=== PATIENT | female | born 2000 | race Caucasian/White ===

== ENCOUNTER 2019-05-19 12:54 | Outpatient (CLI) | payer MEDICAID, SELFPAY ==
--- NOTE | 2019-05-19 13:05 | US_ITS ---
WS: [id number] ULTRASOUND-GUIDED RIGHT BREAST BIOPSY HISTORY: LUMP, 19-year-old female. COMPARISON: 04/19/2019 Procedure, risks and complications are explained to the patient. Medications are reviewed. Consent is obtained. The mass in the RIGHT breast is localized with ultrasound. Skin is cleansed with ChloraPrep and anest hetized with 1% buffered lidocaine. Small dermatome is made. Under sterile conditions mass is biopsie d with a 14-gauge Achieve needle. Multiple core biopsies are performed. Material placed in formalin a nd sent to pathology for review. No complications encountered. Breast tissue marker (Travtar ultrasound enhanced ribbon): None. Patient left the radiology suite with no complications. Patient is instructed to return to [facility] or [facility] with any concerns. 1. Uncomplicated core needle biopsy RIGHT breast mass at 9:00. US/[place] [id number] IMPRESSION: PATHOLOGY: Benign breast tissue with fibrocystic changes. Ductal hyperplasia an d ectasia with fibrosis. No malignancy or calcification. RECOMMENDATION: Consider surgical excision due to the size of the mass.
== END 2019-05-19 12:55 | disposition home or self-care (01) ==
PROVIDERS: Family Provider Nurse Practitioner Family; PCP Nurse Practitioner Family; Visit Provider Surgery
DX: N60.42 Mammary duct ectasia of left breast (principal); N60.32 Fibrosclerosis of left breast; N62 Hypertrophy of breast; N63.20 Unspecified lump in the left breast, unspecified quadrant
CPT/HCPCS: 19083; 88305; J2001

== ENCOUNTER 2019-06-12 13:02 | Day surgery (SDC) | payer MEDICAID, SELFPAY ==
[2019-06-09 13:42] VITALS: BMI 27.3
[2019-06-12] VITALS (10 sets, daily range): BP systolic 88–132; BP diastolic 59–85; PULSE 56–99; RESP 15–20; TEMP 36.1–36.9; O2SAT 96–100
[2019-06-12 13:25] LABS: OR HCG Qualitative Urine Negative (Negative)
[2019-06-12] MEDS: sodium chloride 0.9% 1,000 ML 30 ML IV (13:45)
--- NOTE | 2019-06-12 14:02 | P.ANES_ITS ---
Pre-Anesthetic Assessment Pre-Anesthetic Assessment: Height/Weight: Height 1.52 m Weight 63.503 kg Preop Diagnosis: Left breast mass Proposed Procedure: Operation Date: 06/12/19 14:40 Proposed Procedures p Excision of left breast mass N63.20(Not Applicable) - Rafy Mckay MD Familial anesthetic complications: No trouble with anesthesia Was Beta Chanel taken within 24 hours: N/A Last intake: Intake Last Liquid Date 06/11/19 Last Liquid Time 21:00 Last Solid Date 06/11/19 Last Solid Time 21:00 Social: Social History: Tobacco and No alcohol Packs per day: 0.5 ppd Exam: Pre-Anes Outpt Exam: alert, oriented x 3, clear to auscultation bilaterally and regular rate & rhythm Airway: Cervical ROM: WNL MP: 2 Dentition: Chipped Additional comments: 8 broken teeth, teeth growing inside Pulmonary: Pulmonary: Asthma Comments: allergies recently CV/HEM: CV/HEM: Angina (Stable) Comments: L sided chest pains since age 11, occurs with stress. Has stated she has passed out over 10 times in her life (just happens - her doctors says this is heart burn And bad diet) : : None reported Hepatic: Hepatic: None reported Comments: WAS TOLD SHE MIGHT HAVE SPLEEN CANCER DUE TO BLACK MASSES on a scan for her gallbladder. hasn'[t been worked up. will rescan in a year GI: Comments: diarrhea for 1 month, was told she had IBS. sees dr. blanton, wants to get a stool sample done. Endoscopy and colonscopy looked ok Metabolic: Metabolic: None reported Musc/skel: Musc/skel: None reported Neuropsych: Neuropsych: Seizure Comments: age 10 or 11 had 2 seizures - unknown etiology no antiseziure meds Anesthetic Plan: ASA status: II Anesthesia: General Meds/Allergies Current Medications: Current Medications Generic Name Dose Route Start Last Admin Trade Name Freq PRN Reason Stop Dose Admin Sodium Chloride 1,000 mls @ 30 ml s/hr 06/12/19 13:15 06/12/19 13:45 Sodium Chloride 0.9% IV 06/13/19 13:14 30 mls/hr .Q24H JORDI Administration PFSH Anesthesia PFSH: Medical History (Updated 06/09/19 @ 16:10 by Tess Custer, SHIRRING MACHINE OPERATOR AUTOMATIC) Diverticulitis (Acute) Surgical History Breast mass, left (Acute) Social History Smoking and tobacco status: current every day smoker cigarettes Packs smoked per day: 1 Quit status (tobacco): has tried quititng Second hand smoke exposure: Yes Alcohol intake: never Adopted: No Caregiver/support person: Yes Lives independently: Yes Household members: family Housing: House Marital status: Single Highest education level completed: High School Graduate service: No Current occupational status: employed Current occupation: PART-TIME [employer] Current occupational exposures/hazards: No Pets and animals: Yes History of recent travel: No Sexually active: Yes Current gender identity: Female Bisi/Protestant: None Special bisi needs: No Agree to transfusion: No Financial difficulty paying for basics: Decline to Answer Data Anesthesia Other Labs: Laboratory Results - last 48 hr 06/12/19 13:20 Urine HCG, Qual Negative Cardiac Studies: No Data to Display
--- NOTE | 2019-06-12 15:22 | PM.HPUD ---
H&P update H&P Update: DATE OF SURGERY/PROCEDURE: 06/12/19 DATE H&P PERFORMED: 06/05/19 H&P UPDATE INFORMATION: H&P completed within last 30 days and No changes to prior documentation PREOP DIAGNOSIS: Left breast mass PLANNED PROCEDURE: Operation Date: 06/12/19 14:40 Proposed Procedures p Excision of left breast mass 98079 N63.20(Not Applicable) - Rafy Mckay MD Full H&P Medications/Allergies: Current Medications: Current Medications Generic Name Dose Route Start Last Admin Trade Name Freq PRN Reason Stop Dose Admin Sodium Chloride 1,000 mls @ 30 ml s/hr 06/12/19 13:15 06/12/19 13:45 Sodium Chloride 0.9% IV 06/13/19 13:14 30 mls/hr .Q24H JORDI Administration Perinent History: Medical/Surgical History: Medical History (Updated 06/09/19 @ 16:10 by ALVIN Meléndez) Diverticulitis (Acute) Family History: Family History (Updated 05/31/19 @ 09:59 by Ninfa Jones RN) Other Cancer Diabetes Denies family history of Anesthesia complication Bleeding disorder Social History: Social History Smoking and tobacco status: current every day smoker cigarettes Packs smoked per day: 1 Quit status (tobacco): has tried quititng Second hand smoke exposure: Yes Alcohol intake: never Adopted: No Caregiver/support person: Yes Lives independently: Yes Household members: family Housing: House Marital status: Single Highest education level completed: High School Graduate service: No Current occupational status: employed Current occupation: PART-TIME [employer] Current occupational exposures/hazards: No Pets and animals: Yes History of recent travel: No Sexually active: Yes Current gender identity: Female Bisi/Christianity: None Special bisi needs: No Agree to transfusion: No Financial difficulty paying for basics: Decline to Answer
[2019-06-12] MEDS: lidocaine 2% INJ 20 mL INJECTION (15:54)
--- NOTE | 2019-06-12 16:26 | P.OP_ITS ---
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 Post-op Findings: Large breast mass 5 x 4 x 6 cm Procedure Done: Excision of left breast mass Specimens removed/disposition: Left breast mass oriented short sutures superior and long sutures marked lateral Surgeon: Rafy Mckay Material Handler Floorperson: Surgical thais Heredia Circulating nurse Denisse Anesthesia: General (LMA IMPORT/EXPORT FREIGHT FORWARDER Ariel) Estimated blood loss (mL): 10 Complications: No immediate complications Disposition: same day Brief History: This is a pleasant 19 years old female patient referred to my office with symptomatic left breast mass were an ultrasound guided biopsy was done and showed fibroadenoma, patient continued to have pain associated with the mass she elected to have it excised. Informed consent per chart Procedure: After identifying the patient holding area, the left breast was marked before the procedure by myself, patient was then taken to the operative suite, was placed in supine position, LMA was placed by anesthesia, prophylactic IV antibiotics were given per protocol, left arm was tucked to her body, prep and drape of the left pectoralis region was done under the usual sterile technique. Timeout was done verifying the patient's name/date of /planned procedure and destination after the procedure, all were in agreement. After palpation of the breast lump I did add circumferential incision coinciding with the skin areolar margin on top of the mass, I was able to dissect using the Bovie cautery and the mass was excised, the mass was deeply seated required quite of dissection to reach it, and it was enucleated no clinical suspicious of malignancy, following that appropriate orientation was done for the breast mass in the form of, short superior sutures, long lateral sutures, the mass was then passed to the circulating nurse for permanent. Thorough irrigation of the cavity was done and hemostasis, followed by deep dermal closure by 3-0 Vicryl, then 4-0 Monocryl for skin closure Lidocaine 2% was injected at the site of the incision, Mastisol and Steri-Strips were applied followed by dry dressing in the form of Telfa and Tegaderm. Followed by sports bra Patient tolerated the procedure well, count of instruments, needles and sponges were completed at the end of the procedure.And then patient was taken to the recovery area in stable condition. Was present for the whole entire procedure
[2019-06-12] MEDS: fentaNYL 50 mcg/mL INJ 2mL IVP ×2 (16:43→16:55)
--- NOTE | 2019-06-12 16:47 | SUR.PHASEI ---
6740 PATIENT TO PACU VIA GURNEY FROM OR. RR EVEN AND UNLABORED. ORAL AIRWAY IN PLACE, REMOVED ON ARRIVAL. SIMPLE MASK PLACED AT 8L. SPO2 100% DRESSING TO LEFT BREAST, CDI.
[2019-06-12] MEDS: ondansetron 2 mg/ML SDV 2 mL 4 MG IVP (17:03)
--- NOTE | 2019-06-12 17:06 | SUR.PHASEI ---
1700 SURGICAL BRA PLACED FOR COMFORT.
--- NOTE | 2019-06-12 17:10 | SUR.PHASEI ---
1708 ANESTHESIA AWARE OF LAST PAIN MEDICATION GIVEN. PATIENT TO OPS VIA GURNEY FROM PACU. RR EVEN AND UNLABORED. A/OX3. NO DISTRESS. PWD. DRESSING TO LEFT BREAST, CDI. SURGICAL BRA IN PLACE.
== END 2019-06-12 17:46 | disposition home or self-care (01) ==
PROVIDERS: Family Provider Nurse Practitioner Family; PCP Nurse Practitioner Family; Visit Provider Surgery
PROC: (CPT 19120; principal; 2019-06-12 14:30)
DX: N63.0 Unspecified lump in unspecified breast (principal); F17.210 Nicotine dependence, cigarettes, uncomplicated
CPT/HCPCS: 19120; 12345; 81025; 84703; 88305; 96365; J0131; J0690; J2001; J2405; J2704; J3010; J7030

== ENCOUNTER 2019-10-08 11:06 | Emergency (ER) | payer MEDICAID, SELFPAY ==
[2019-10-08 11:43] VITALS: BP 107/67; PULSE 66; RESP 18; TEMP 36.7; O2SAT 99; BMI 30.2
--- NOTE | 2019-10-08 12:11 | USR_ITS ---
NOTE: Report was unsigned for reason: Order was edited. Original Signature date and time was: 10/08/19 1341 PROCEDURE INFORMATION: Exam: US , Limited Exam date and time: 10/08/2019 12:47 PM Age: 19 years old Clinical indication: complicated by abdominal or pelvic pain; Right lower quadrant; Second trimester; Gestational age or lmp: 18 wks 4 days (by kong, per patient); ; Additional info: Abdominal pain TECHNIQUE: Imaging protocol: Real-time ultrasound of the maternal uterus with image documentation. Exam focused on the clinical indication. COM[place]ISON: [place] [id number] 01/14/2019 5:49 PM FINDINGS: Limited exam. Gestation: Intrauterine gestation. Heart rate: heart rate: 147 bpm. Presentation: Breech presentation at the current time. BIOMETRY: Estimated gestational age: Single live intrauterine gestation with the estimated gestational age of approximately 18 weeks 4 days by last menstrual period. Estimated due date: Estimated due date 03-06-20 MATERNAL: Right adnexa: Right ovary not visualized. Left adnexa: Left ovary not visualized. MTD US/US OB >= 14 weeks fetus [id number] IMPRESSION: 1. Single live intrauterine gestation with the estimated gestational age of approximately 18 weeks 4 days by last menstrual period. . 2. heart rate: 147 bpm.
--- NOTE | 2019-10-08 12:11 | USR_ITS ---
NOTE: Report was unsigned for reason: Order was edited. Original Signature date and time was: 10/08/19 1344 PROCEDURE INFORMATION: Exam: US Retroperitoneal Complete. Exam date and time: 10/08/2019 1:09 PM Age: 19 years old Clinical indication: Abdominal pain; Flank; Right; ; Additional info: Right flank pain TECHNIQUE: Imaging protocol: Real-time ultrasound of the retroperitoneum with image documentation. Complete exam. COMPARISON: US appendix [id number] 10/08/2019 12:48 PM FINDINGS: Right kidney: Right kidney 9.8 x 5.3 x 4.2 cm. Mild hydronephrosis. Left kidney: Left kidney 12.5 x 4.4 x 4.5 cm. Mild hydronephrosis. Aorta: Aorta unremarkable. Bladder: Bladder unremarkable. [facility] US/US renal BI with bladder IMPRESSION: Mild hydronephrosis on the right and likely and likely on the left. Please note the patient is .
--- NOTE | 2019-10-08 12:11 | USR_ITS ---
PROCEDURE INFORMATION: Exam: US Abdomen Limited, Appendix Exam date and time: 10/08/2019 12:53 PM Age: 19 years old Clinical indication: Abdominal pain; ; Additional info: Rlq pain - TECHNIQUE: Imaging protocol: Real-time ultrasound of the abdomen with image documentation. Examination was focused on the appendix. COMPARISON: No relevant prior studies available. FINDINGS: Appendix: Appendix not visualized. Intraperitoneal space: Minimal fluid in the right lower abdomen. US/US appendix [id number] IMPRESSION: 1. Appendix not visualized. 2. Minimal fluid in the right lower abdomen.
[2019-10-08 12:15] LABS: Basophils # 0.1 10^3/uL (0.0-0.1); Basophils % 0.5 %; Eosinophils # 0.1 10^3/uL (0.0-0.8); Hematocrit 35.7 % (37.0-47.0); Hemoglobin 11.7 g/dL (11.5-15.3); Lymphocytes # 2.2 10^3/uL (0.8-4.8); Mean Corpuscular HGB Conc 32.8 g/dL (30.0-36.0); Mean Corpuscular Volume 103.8 fL (81-99); Mean Platelet Volume 9.4 fL (7.4-10.4); Monocytes # 0.6 10^3/uL (0.2-0.9); Monocytes % 6.1 %; Neutrophils % 69.9 %; Nucleated Red Blood Cells % 0 %; Platelet Count 272 10^3/cmm (130-400); Red Blood Count 3.44 10^6/uL (4.1-5.3)
[2019-10-08 12:30] LABS: Bilirubin Urine Neg (NEGATIVE); Blood Urine Neg (Negative); Glucose Urine UA Norm (Normal); Ketones Urine Negative (Negative); Leukocyte Esterase Urine Negative (Negative); Nitrate Urine Negative (Negative); Protein Urine Neg (Negative); Sulfosalicylic Acid Urine Negative (Negative); Urine Appearance SL Hazy (CLEAR); Urine Color Yellow (Yellow); Urobilinogen Urine Norm (Negative); pH Urine 8 (5-7)
[2019-10-08 12:32] LABS: WBC Urine 0-4 /hpf (0-5)
[2019-10-08 12:33] LABS: Add Urine Culture? No; Amorphous Sediment Urine 2+; Bacteria Urine 1+; Mucus Urine 1+
[2019-10-08 12:35] LABS: Alanine Aminotransferase 14 U/L (0-33); Alkaline Phosphatase 68 IU/L (35-105); Anion Gap 14.7 (5-19); Aspartate Amino Transferase 14 U/L (0-32); Blood Urea Nitrogen 3 mg/dL (6-20); Calcium 8.6 mg/dL (8.5-10.5); Carbon Dioxide 22 mmol/L (22-29); Chloride 103 mmol/L (98-107); Globulin 2.9 g/dL (1.3-4.6); Glomerular Filtration Rate 201.5 mL/min (90-130); Glucose 83 mg/dL (65-115); Lipase 9 U/L (13-60); Osmolality Calculated 277 mOsm/kg (285-295); Potassium 3.7 mmol/L (3.5-5.1); Sodium 136 mmol/L (136-145); Total Bilirubin 0.2 mg/dL (0.15-1.2); Total Protein 6.9 g/dL (6.6-8.7)
[2019-10-08 12:40] LABS: HCG, Serum Qual Positive (Negative)
== END 2019-10-08 13:34 | disposition left against medical advice (07) ==
PROVIDERS: Emergency Medicine; Emergency Provider Emergency Medicine; PCP Nurse Practitioner Family
DX: Z53.21 Procedure and treatment not carried out due to patient leaving prior to being seen by health care provider (principal)
CPT/HCPCS: 36415; 76705; 76770; 76805; 76815; 76857; 80053; 81001; 83690; 84703; 85025; 99281; 99283

== ENCOUNTER 2019-10-16 15:30 | Outpatient (CLI) | payer MEDICAID, SELFPAY ==
--- NOTE | 2019-10-16 | US_ITS ---
WS: [id number] ULTRASOUND TRANSABDOMINAL HISTORY: ANATOMY SCAN : 2 PARA: 0 COMPARISON: None available. FINDINGS: Cervical length is 4.28 cm. cm; closed. Placenta grade 0, anterior cardiac tones 131 BPM. The parts show normal stomach, kidneys, bladder, bilateral arms, bilateral legs, profile of the face normal, Gender appears to be male The vessels in the umbilical cord are seen. The spine appear to be normal. 4 chambers of the heart are seen. The brain show normal lateral ventricles cerebellum cisterna magna. Biparietal diameter measures 4.4 cm, equals 19w3d. Head circumference measures 17.9 cm, equals 20w2d. Abdomen circumference measures 15.2 cm, equals 20w3d. Femur length measures 3.1 cm, equals 19w5d. Estimated gestational age 20w0d An estimated delivery 03/04/2020. Estimated weight 332 g. US/US OB >= 14 weeks fetus [id number] IMPRESSION: Single live intrauterine uterines . Estimated gestational age 20w0d a nd estimated delivery 03/04/2020. The parts preliminary evaluation all appear to be within normal limits.
== END 2019-10-16 15:31 | disposition home or self-care (01) ==
LOC: RAD 15:35
PROVIDERS: PCP Nurse Practitioner Family; Visit Provider Family Medicine
DX: Z34.82 Encounter for supervision of other normal pregnancy, second trimester (principal); Z3A.20 20 weeks gestation of pregnancy
CPT/HCPCS: 76805

== ENCOUNTER → 2019-11-24 14:08 | Outpatient (BNVA) | payer MEDICAID, SELFPAY | PROVIDERS: PCP Nurse Practitioner Family; Visit Provider Obstetrics & Gynecology | DX: Z34.90 Encounter for supervision of normal pregnancy, unspecified, unspecified trimester (principal); N89.8 Other specified noninflammatory disorders of vagina | CPT/HCPCS: 81000; 87210 ==

== ENCOUNTER 2019-11-30 12:27 | Emergency (ER) | payer MEDICAID, SELFPAY ==
[2019-11-30 12:31] VITALS: BP 98/57; PULSE 80; RESP 16; TEMP 37; O2SAT 96
--- NOTE | 2019-12-01 13:06 | PC.RESP ---
Smoking Cessation information sent to patient.
== END 2019-11-30 12:40 | disposition other institution (70) ==
LOC: ER 13:10
PROVIDERS: Emergency Provider Nurse Practitioner Family; PCP Nurse Practitioner Family
DX: Z53.8 Procedure and treatment not carried out for other reasons (principal)
CPT/HCPCS: 99281

== ENCOUNTER 2019-11-30 12:42 | Observation (INO) | payer MEDICAID, SELFPAY ==
[2019-11-30 13:05] VITALS: BMI 30.7
[2019-11-30 13:15] VITALS: RESP 20; TEMP 37.4
--- NOTE | 2019-11-30 13:23 | US_ITS ---
WS: [id number] ULTRASOUND RENAL TECHNIQUE: Ultrasound examination of both kidneys. CLINICAL INFORMATION: RIGHT FLANK PAIN COMPARISON: None. FINDINGS: RIGHT: Mild hydronephrosis right kidney similar to October 08, 2019 Right kidney Echogenicity: Normal. Cortical thickness: 1.1 cm; Normal. Hydronephrosis: Mild Perinephric fluid: None. Right kidney measures: 13.2 cm x 4.7 cm x 3.7 cm. LEFT: Left kidney is normal in size and appearance. Echogenicity: Normal. Cortical thickness: 1.8 cm; Normal. Hydronephrosis: None. Perinephric fluid: None. Left kidney measures: 10.0 cm x 4.2 cm x 5.4 cm. Normal visualized aorta. US/US renal BI* [id number] IMPRESSION: 1. Mild hydronephrosis right kidney similar in appearance to October 10, 2019. 2. Left kidney is normal. 3. Empty bladder 4. heart rate 153
--- NOTE | 2019-11-30 13:47 | PC.NURSE ---
AT APPROXIMATELY 1332 THIS GLOBAL CMO NOTICED HEART TONES DECREASING THIS GLOBAL CMO ENTERED ROOM AND HAD PT TILT TO LEFT SIDE AND TRIED TO GET FHTS BACK ON MONITOR APPEARED TO BE PICKING UP MATERNAL HEART BEAT. BLANCA RAMÍREZ RN ENTERED ROOM TO ASSIST AND SHE GOT ULTRASOUND AND HEART TONES LOOKED TO BE AROUND 120 ON ULTRASOUND MACHINE. HAD PT TILT TO RIGHT SIDE AND FHT ARE RUNNING IN THE 120'S. PT STATED THAT SHE FELT BABY KICK HER RIGHT BEFORE I ENTERED ROOM, PT DENIES TOUCHING TOCOS. 1345 CALLED AND LEFT MESSAGE AT DR. JONES'S OFFICE FOR THEM TO HAVE DR. JONES OR HIS NURSE TO CALL WHEN THEY WERE OUT OF THEIR PROCEDURE.
[2019-11-30 13:48] LABS: Amphetamines Screen Urine Negative (Negative); Barbiturates Screen Urine Negative (Negative); Benzodiazepines Screen Urine Negative (Negative); Cocaine Screen Urine Negative (Negative); Opiate Screen Urine Negative (Negative); PCP Screen Urine Negative (Negative); THC Screen Urine Positive (Negative)
[2019-11-30 14:05] LABS: Add Urine Culture? Yes; Bacteria Urine TRACE; Bilirubin Urine Neg (NEGATIVE); Blood Urine Neg (Negative); Glucose Urine UA Norm (Normal); Ketones Urine Negative (Negative); Leukocyte Esterase Urine Negative (Negative); Mucus Urine TRACE; Nitrate Urine Negative (Negative); Protein Urine Neg (Negative); Specific Gravity, Urine 1.005 (1.005-1.030); Squamous Epithelial Cell Urine 15-25 (0-5); Urine Appearance Clear (CLEAR); Urine Color Yellow (Yellow); Urobilinogen Urine 1 mg/dL (Negative)
[2019-11-30 14:32] VITALS: BP 91/49; PULSE 60
[2019-11-30 14:50] VITALS: BP 91/49; PULSE 60; RESP 18; TEMP 37.4
--- NOTE | 2019-11-30 19:03 | PC.NURSE ---
HAD ALREADY WRITTEN A NOTE PREVIOUSLY AND IT IS NOT ABLE TO BE SEEN, CALLED IT AND HAVE NOT GOTTEN A RESPOND TO HOW TO RETRIEVE IT. AT [facility] 1332 THIS CHAIR CANER NOTICED THAT HEART TONES GOING DOWN, WENT INTO ROOM AND HAD PATIENT TURN TO LEFT SIDE AND I WAS UNABLE TO GET FHT'S TO GRAPH AND BLANCA RAMÍREZ RN CAME INTO ROOM TO HELP AND THEN GOT ULTRASOUND MACHINE AND FHTS APPEARED TO BE IN THE 120'S HAD PATIENT TURN TO RIGHT SIDE AND STIL UNABLE TO GET FH'T GRAPH SO HAD HER JUST TILT AND FHT'S IN THE 120'S. CALLED DR. JONES'S OFFICE AND LEFT MESSAGE FOR HIM TO CALL ME AFTER THEY GOT OUT OF PROCEDURE.
== END 2019-11-30 14:50 | disposition home or self-care (01) ==
PROVIDERS: Admitting Provider Obstetrics & Gynecology; PCP Nurse Practitioner Family; Visit Provider Obstetrics & Gynecology
DX: O26.899 Other specified pregnancy related conditions, unspecified trimester (principal); Z3A.00 Weeks of gestation of pregnancy not specified; R10.9 Unspecified abdominal pain
CPT/HCPCS: 76770; 80306; 81001; 87086; 99211; G0378; G0379

== ENCOUNTER 2019-12-04 17:30 | Outpatient (CLI) | payer MEDICAID, SELFPAY ==
[2019-12-04 17:46] VITALS: BP 105/55; PULSE 74
[2019-12-04 18:03] VITALS: RESP 16; TEMP 36.9
[2019-12-04] MEDS: acetaminophen 325 mg Tablet 650 MG PO (18:12)
[2019-12-04 18:15] VITALS: BP 98/55; PULSE 63
[2019-12-04 18:36] VITALS: BMI 30.9
[2019-12-04 18:45] VITALS: BP 96/58; PULSE 59
[2019-12-04 18:51] VITALS: BP 100/58; PULSE 61
[2019-12-04 19:06] VITALS: BP 100/58; PULSE 61
== END 2019-12-04 19:07 | disposition home or self-care (01) ==
LOC: OPOB 17:39 → OBGYN 17:40
PROVIDERS: PCP Nurse Practitioner Family; Visit Provider Obstetrics & Gynecology
DX: O26.899 Other specified pregnancy related conditions, unspecified trimester (principal); Z3A.00 Weeks of gestation of pregnancy not specified; N89.8 Other specified noninflammatory disorders of vagina
CPT/HCPCS: 99211

== ENCOUNTER → 2019-12-08 09:55 | Outpatient (BNVA) | payer MEDICAID, SELFPAY | PROVIDERS: PCP Nurse Practitioner Family; Visit Provider Registered Nurse | DX: R10.9 Unspecified abdominal pain (principal); O99.322 Drug use complicating pregnancy, second trimester | CPT/HCPCS: 81000 ==

== ENCOUNTER → 2019-12-14 16:47 | Outpatient (BNVA) | payer MEDICAID, SELFPAY | PROVIDERS: PCP Nurse Practitioner Family; Visit Provider Nurse Practitioner Women's Health | DX: O09.892 Supervision of other high risk pregnancies, second trimester (principal); O99.322 Drug use complicating pregnancy, second trimester; O99.342 Other mental disorders complicating pregnancy, second trimester; R10.9 Unspecified abdominal pain; O98.512 Other viral diseases complicating pregnancy, second trimester; B00.9 Herpesviral infection, unspecified; O99.332 Smoking (tobacco) complicating pregnancy, second trimester; N89.8 Other specified noninflammatory disorders of vagina | CPT/HCPCS: 80307; 81000; 82950; 85027 ==

== ENCOUNTER 2019-12-21 14:35 | Outpatient (CLI) | payer MEDICAID, SELFPAY ==
[2019-12-21] VITALS (10 sets, daily range): BP systolic 105–140; BP diastolic 61–88; PULSE 69–93; RESP 16–20; TEMP 37.1
[2019-12-21 15:47] LABS: Amphetamines Screen Urine Negative (Negative); Barbiturates Screen Urine Negative (Negative); Benzodiazepines Screen Urine Negative (Negative); Cocaine Screen Urine Negative (Negative); Opiate Screen Urine Negative (Negative); PCP Screen Urine Negative (Negative); THC Screen Urine Positive (Negative)
[2019-12-21 15:57] LABS: Add Urine Culture? No; Bacteria Urine TRACE; Bilirubin Urine Neg (NEGATIVE); Blood Urine Neg (Negative); Glucose Urine UA Norm (Normal); Ketones Urine Negative (Negative); Leukocyte Esterase Urine Negative (Negative); Mucus Urine 2+; Nitrate Urine Negative (Negative); Protein Urine Neg (Negative); RBC Urine 0-4 /hpf (0-2); Specific Gravity, Urine 1.005 (1.005-1.030); Urine Appearance Clear (CLEAR); Urine Color Yellow (Yellow); Urobilinogen Urine 1 mg/dL (Negative)
[2019-12-21] MEDS: terbutaline 1 mg/mL INJ 0.25 MG SUBCUT (16:15)
[2019-12-21] MEDS: HYDROcodone-acetaminophen 5-325 mg Tablet 2 TAB PO (16:42)
[2019-12-21 17:06] LABS: Nitrazine Paper, PH Negative
== END 2019-12-21 17:30 | disposition home or self-care (01) ==
LOC: OPOB 14:52 → OBGYN 14:53
PROVIDERS: PCP Nurse Practitioner Family; Visit Provider Obstetrics & Gynecology
DX: O26.899 Other specified pregnancy related conditions, unspecified trimester (principal); Z3A.00 Weeks of gestation of pregnancy not specified; R10.9 Unspecified abdominal pain
CPT/HCPCS: 59025; 80306; 81001; 83986; 96372; 99211; J3105

== ENCOUNTER 2019-12-29 15:45 | Outpatient (CLI) | payer MEDICAID, SELFPAY ==
[2019-12-29] VITALS (22 sets, daily range): BP systolic 92–116; BP diastolic 54–65; PULSE 71–109; RESP 16; TEMP 37.3; O2SAT 96–98; BMI 31.2
[2019-12-29 16:21] LABS: Nitrazine Paper, PH Negative
--- NOTE | 2019-12-29 16:29 | USR_ITS ---
PROCEDURE INFORMATION: Exam: US , Limited Exam date and time: 12/29/2019 4:38 PM Age: 19 years old Clinical indication: Lmp or gestational age (in weeks): 31 wks 0 days; Labor and delivery abnormalities; Pre-term labor; Without delivery; ; Patient HX: Mother is in labor and thinks she has been losing fluid today. Cervix only studied ta. ; Additional info: R/O srom TECHNIQUE: Imaging protocol: Real-time ultrasound of the maternal uterus with image documentation. Exam focused on the clinical indication. COMPARISON: US OB >= 14 weeks fetus [id number] 10/16/2019 3:38 PM FINDINGS: Gestation: Single intrauterine gestation. heart rate: Measured heart rate 160 bpm. Presentation: Cephalic presentation. Placenta: Anterior placenta. Amniotic fluid index: BLADIMIR 14.4 cm. MATERNAL: Cervix: The cervix is poorly visualized estimated at 2.4 cm. US/US OB limited [id number] IMPRESSION: 1. Single living intrauterine gestation. 2. Normal amniotic fluid volume. 3. Poorly visualized cervix estimated at 2.4 cm.
[2019-12-29 16:39] LABS: Urine Appearance Clear (CLEAR); Urine Color Yellow (Yellow)
[2019-12-29 16:40] LABS: Add Urine Culture? No; Bacteria Urine TRACE; Bilirubin Urine Neg (NEGATIVE); Blood Urine Neg (Negative); Glucose Urine UA Norm (Normal); Ketones Urine Negative (Negative); Leukocyte Esterase Urine Negative (Negative); Nitrate Urine Negative (Negative); Protein Urine Neg (Negative); Urobilinogen Urine Neg (Negative); WBC Urine 0-4 /hpf (0-5); pH Urine 7 (5-7)
[2019-12-29] MEDS: terbutaline 1 mg/mL INJ 0.25 MG SUBCUT (16:42)
== END 2019-12-29 18:19 | disposition home or self-care (01) ==
LOC: OPOB 15:49 → OBGYN 15:50
PROVIDERS: PCP Nurse Practitioner Family; Visit Provider Obstetrics & Gynecology
DX: O60.03 Preterm labor without delivery, third trimester (principal); Z3A.31 31 weeks gestation of pregnancy
CPT/HCPCS: 59025; 76815; 81001; 83986; 96372; 99211; J3105

== ENCOUNTER 2020-01-07 22:26 | Outpatient (CLI) | payer MEDICAID, SELFPAY ==
[2020-01-07] VITALS (8 sets, daily range): BP systolic 0–123; BP diastolic 0–69; PULSE 64–83; TEMP 36.8; BMI 31.4
[2020-01-07 23:00] LABS: Nitrazine Paper, PH Negative
[2020-01-07] MEDS: sodium chloride 0.9% 500 ML 999 ML IV (23:09)
[2020-01-07] MEDS: sodium chloride 0.9% 1,000 ML 150 ML IV (23:53)
[2020-01-08] VITALS (10 sets, daily range): BP systolic 0–112; BP diastolic 0–69; PULSE 61–76; RESP 16; TEMP 36.9
--- NOTE | 2020-01-08 02:22 | PC.NURSE ---
0145 patient educated about contractions, how they may feel and how to time them from beginning to beginning. Discussed how the growth of the uterus can cause discomfort in the lower abdomen. Relayed Drs orders, may take OTC Tylenol per package directions, may use heating pad.
== END 2020-01-08 02:00 | disposition home or self-care (01) ==
LOC: OPOB 22:27 → OBGYN 01-08 01:45
PROVIDERS: PCP Nurse Practitioner Family; Visit Provider Obstetrics & Gynecology
DX: O26.899 Other specified pregnancy related conditions, unspecified trimester (principal); Z3A.00 Weeks of gestation of pregnancy not specified; R10.9 Unspecified abdominal pain
CPT/HCPCS: 83986; 99211; J7030; J7040

== ENCOUNTER → 2020-01-15 15:59 | Outpatient (BNVA) | payer MEDICAID, SELFPAY | PROVIDERS: PCP Nurse Practitioner Family; Visit Provider Obstetrics & Gynecology | DX: R35.0 Frequency of micturition (principal); G43.909 Migraine, unspecified, not intractable, without status migrainosus | CPT/HCPCS: 80053; 81000 ==

== ENCOUNTER 2020-01-21 15:11 | Outpatient (CLI) | payer MEDICAID, SELFPAY ==
[2020-01-21 15:11] VITALS: BMI 32.2
[2020-01-21 16:00] VITALS: TEMP 36.7
[2020-01-21 16:04] VITALS: BP 105/60; PULSE 68
[2020-01-21 16:21] LABS: Nitrazine Paper, PH Negative
[2020-01-21 16:32] LABS: Add Urine Culture? No; Bacteria Urine TRACE; Bilirubin Urine Neg (NEGATIVE); Blood Urine Neg (Negative); Glucose Urine UA Norm (Normal); Ketones Urine Negative (Negative); Nitrate Urine Negative (Negative); Protein Urine Neg (Negative); Specific Gravity, Urine 1.005 (1.005-1.030); Squamous Epithelial Cell Urine 0-4 (0-5); Urine Appearance Clear (CLEAR); Urine Color Straw (Yellow); Urobilinogen Urine Norm (Negative); WBC Urine RARE /hpf (0-5); pH Urine 7 (5-7)
[2020-01-21 16:40] VITALS: BP 97/61; PULSE 64
[2020-01-21 17:00] VITALS: BP 97/61; PULSE 64; TEMP 36.7
[2020-01-21 17:14] LABS: Leukocyte Esterase Urine Negative (Negative)
== END 2020-01-21 17:00 | disposition home or self-care (01) ==
LOC: OPOB 15:20 → OBGYN 15:22
PROVIDERS: PCP Nurse Practitioner Family; Visit Provider Obstetrics & Gynecology
DX: O26.899 Other specified pregnancy related conditions, unspecified trimester (principal); Z3A.00 Weeks of gestation of pregnancy not specified; R10.9 Unspecified abdominal pain
CPT/HCPCS: 59025; 81001; 83986; 99211

== ENCOUNTER → 2020-01-24 14:27 | Outpatient (BNVA) | payer MEDICAID, SELFPAY | PROVIDERS: PCP Nurse Practitioner Family; Visit Provider Obstetrics & Gynecology | DX: Z34.90 Encounter for supervision of normal pregnancy, unspecified, unspecified trimester (principal) | CPT/HCPCS: 81000 ==

== ENCOUNTER 2020-01-31 08:28 | Outpatient (CLI) | payer MEDICAID, SELFPAY ==
[2020-01-31 08:48] VITALS: BP 104/62; PULSE 70
[2020-01-31 08:50] VITALS: TEMP 37.1
[2020-01-31 09:55] VITALS: BMI 33.0
[2020-01-31 10:08] VITALS: BP 102/57; PULSE 63
== END 2020-01-31 10:14 | disposition home or self-care (01) ==
LOC: OPOB 08:43 → OBGYN 08:44
PROVIDERS: PCP Nurse Practitioner Family; Visit Provider Obstetrics & Gynecology
DX: O26.899 Other specified pregnancy related conditions, unspecified trimester (principal); Z3A.00 Weeks of gestation of pregnancy not specified; R10.9 Unspecified abdominal pain
CPT/HCPCS: 59025; 99211

== ENCOUNTER 2020-02-02 03:27 | Outpatient (CLI) | payer MEDICAID, SELFPAY ==
[2020-02-02] VITALS (13 sets, daily range): BP systolic 0–122; BP diastolic 0–79; PULSE 57–75; RESP 18; TEMP 36.9; BMI 33.2
[2020-02-02] MEDS: lactated ringers 1,000 ML 999 ML IV (04:06)
[2020-02-02] MEDS: acetaminophen 325 mg Tablet 650 MG PO (05:04)
[2020-02-02] MEDS: terbutaline 1 mg/mL INJ 0.25 MG SUBCUT (05:59)
--- NOTE | 2020-02-02 06:25 | PC.NURSE ---
Patient reports feeling her contractions since given the dose of terbutaline, but states they're not as painful, only rating them at a 7-8/10 instead of a 10/10.
--- NOTE | 2020-02-02 06:48 | PC.NURSE ---
Patient denies feeling any contractions from 0639 to 0645. As this newswriter asked the patient at 0645 if she had felt any contractions since the last time this newswriter was in the room, patient replied no, but one is starting now.
[2020-02-02] MEDS: hyDROXYzine 25 mg Capsule 50 MG PO (07:16)
--- NOTE | 2020-02-02 08:16 | P.PCN_ITS ---
Procedure/Consent Procedure Narrative: NONSTRESS TEST: Place of test[place] [facility] Indication: 19-year-old 2 para 0-0-1-0 at 35 weeks and 6 days gestation, abdominal pain Date and time of test: 02/02/2020, 4:30 AM Baseline: 130 Variability: Moderate variability Accelerations: Accelerations present Decelerations: No decelerations Tocometry: Irregular contractions every 3 to 10 minutes INTERPRETATION: NST reactive, continue kick counts
== END 2020-02-02 07:23 | disposition home or self-care (01) ==
LOC: OPOB 03:32 → OBGYN 03:32
PROVIDERS: PCP Nurse Practitioner Family; Visit Provider Obstetrics & Gynecology
DX: O26.899 Other specified pregnancy related conditions, unspecified trimester (principal); Z3A.00 Weeks of gestation of pregnancy not specified; R10.9 Unspecified abdominal pain
CPT/HCPCS: 12345; 59025; 83986; 96372; 99211; J3105

== ENCOUNTER → 2020-02-05 11:21 | Outpatient (BNVA) | payer MEDICAID, SELFPAY | PROVIDERS: PCP Nurse Practitioner Family; Visit Provider Obstetrics & Gynecology | DX: O09.893 Supervision of other high risk pregnancies, third trimester (principal); O99.343 Other mental disorders complicating pregnancy, third trimester; F41.9 Anxiety disorder, unspecified; F32.9 Major depressive disorder, single episode, unspecified; O99.323 Drug use complicating pregnancy, third trimester; F12.90 Cannabis use, unspecified, uncomplicated; O99.333 Smoking (tobacco) complicating pregnancy, third trimester; F17.210 Nicotine dependence, cigarettes, uncomplicated; Z87.442 Personal history of urinary calculi; Z3A.36 36 weeks gestation of pregnancy | CPT/HCPCS: 81000; 87081 ==

== ENCOUNTER → 2020-02-12 14:43 | Outpatient (BNVA) | payer MEDICAID, SELFPAY | PROVIDERS: PCP Nurse Practitioner Family; Visit Provider Obstetrics & Gynecology | DX: Z34.90 Encounter for supervision of normal pregnancy, unspecified, unspecified trimester (principal); G47.00 Insomnia, unspecified | CPT/HCPCS: 81000 ==

== ENCOUNTER 2020-02-16 01:55 | Outpatient (CLI) | payer MEDICAID, SELFPAY ==
[2020-02-16 02:08] VITALS: BP 116/69; PULSE 79
[2020-02-16 02:20] VITALS: RESP 17; TEMP 36.7; BMI 34.2
--- NOTE | 2020-02-16 02:25 | PC.NURSE ---
RN at bedside discussing POC with patient and spouse. All questions answered at this time.
[2020-02-16 03:29] VITALS: RESP 16; TEMP 36.8
[2020-02-16 03:33] VITALS: BP 116/70; PULSE 99; RESP 16; TEMP 36.8
[2020-02-16 03:35] VITALS: BP 116/70; PULSE 59
--- NOTE | 2020-02-16 04:39 | P.PCN_ITS ---
Procedure/Consent Procedure Narrative: NONSTRESS TEST: Place of test: [facility] Indication: 19-year-old para 0-0-1-0 at 37 weeks and 6 days, vaginal bleeding, abdominal pain Date and time of test: 02/16/2020, 2:30 AM Baseline: 130 Variability: Moderate variability Accelerations: Accelerations Decelerations: No decelerations Tocometry: No contractions INTERPRETATION: NST reactive, continue kick counts
== END 2020-02-16 03:39 | disposition home or self-care (01) ==
LOC: OPOB 01:55 → OBGYN 01:56
PROVIDERS: PCP Nurse Practitioner Family; Visit Provider Obstetrics & Gynecology
DX: O46.90 Antepartum hemorrhage, unspecified, unspecified trimester (principal); Z3A.00 Weeks of gestation of pregnancy not specified
CPT/HCPCS: 12345; 59025; 99211

== ENCOUNTER 2020-02-18 22:38 | Outpatient (CLI) | payer MEDICAID, SELFPAY ==
[2020-02-18 22:42] VITALS: BP 123/67; PULSE 69
--- NOTE | 2020-02-18 23:00 | PM.ACPR ---
Procedure/Consent Procedure Narrative: NONSTRESS TEST: Place of test: [facility] [place] Indication: 20-year-old 1 para 0 at 38 weeks and 1 day gestation, abdominal pain and possible leaking of fluid Date and time of test: 02/18/2020, 11 PM Baseline: 130 Variability: Moderate variability Accelerations: Accelerations present Decelerations: No decelerations Tocometry: no Contractions INTERPRETATION: NST reactive, continue kick counts
[2020-02-18 23:05] VITALS: BMI 33.2
[2020-02-18 23:06] VITALS: BP 118/63; PULSE 62
[2020-02-18 23:21] VITALS: RESP 16; TEMP 37.1
== END 2020-02-18 23:30 | disposition home or self-care (01) ==
LOC: OPOB 22:39 → OBGYN 23:09
PROVIDERS: PCP Nurse Practitioner Family; Visit Provider Obstetrics & Gynecology
DX: O26.899 Other specified pregnancy related conditions, unspecified trimester (principal); Z3A.00 Weeks of gestation of pregnancy not specified; R10.9 Unspecified abdominal pain
CPT/HCPCS: 12345; 59025; 83986; 99211

== ENCOUNTER → 2020-02-19 17:12 | Outpatient (BNVA) | payer MEDICAID, SELFPAY | PROVIDERS: PCP Nurse Practitioner Family; Visit Provider Nurse Practitioner Family | DX: Z20.828 Contact with and (suspected) exposure to other viral communicable diseases (principal) | CPT/HCPCS: 87635 ==

== ENCOUNTER → 2020-02-22 13:33 | Outpatient (BNVA) | payer MEDICAID, SELFPAY | PROVIDERS: PCP Nurse Practitioner Family; Visit Provider Obstetrics & Gynecology | DX: O09.893 Supervision of other high risk pregnancies, third trimester (principal) | CPT/HCPCS: 81000 ==

== ENCOUNTER 2020-02-24 02:32 | Outpatient (CLI) | payer MEDICAID, SELFPAY ==
[2020-02-24] VITALS (14 sets, daily range): BP systolic 0–140; BP diastolic 0–84; PULSE 59–84; TEMP 37.2; BMI 33.4
--- NOTE | 2020-02-24 02:56 | USR_ITS ---
PROCEDURE INFORMATION: Exam: US Biophysical Profile Without Non-Stress Test Exam date and time: 02/24/2020 3:14 AM Age: 20 years old Clinical indication: Other: Patient bleeding; ; Additional info: Placenta placement, bpp TECHNIQUE: Imaging protocol: US biophysical profile without non-stress testing. COMPARISON: US OB limited [id number] 12/29/2019 4:49 PM FINDINGS: BIOPHYSICAL PROFILE: Breathin/2 Gross body movements: 2/2 tone: 2/2 Qualitative amniotic fluid: 2/2 Biophysical Profile Score: 8/8 US/US OB BPP wo NST [id number] IMPRESSION: Biophysical profile score is 8 out of 8.
== END 2020-02-24 06:30 | disposition home or self-care (01) ==
LOC: OPOB 02:33 → OBGYN 05:55
PROVIDERS: PCP Nurse Practitioner Family; Visit Provider Obstetrics & Gynecology
DX: O46.90 Antepartum hemorrhage, unspecified, unspecified trimester (principal); Z3A.00 Weeks of gestation of pregnancy not specified
CPT/HCPCS: 59025; 76819; 99211

== ENCOUNTER 2020-02-26 11:00 | Inpatient (IN) | payer MEDICAID, SELFPAY ==
[2020-02-26] VITALS (25 sets, daily range): BP systolic 0–147; BP diastolic 0–93; PULSE 54–85; RESP 18–19; TEMP 36.8; BMI 33.7
[2020-02-26 11:53] LABS: Amphetamines Screen Urine Negative (Negative); Barbiturates Screen Urine Negative (Negative); Benzodiazepines Screen Urine Negative (Negative); Cocaine Screen Urine Negative (Negative); Opiate Screen Urine Negative (Negative); PCP Screen Urine Negative (Negative); THC Screen Urine Positive (Negative)
[2020-02-26 12:11] LABS: Basophils % 0.3 %; Eosinophils # 0.1 10^3/uL (0.0-0.8); Eosinophils % 0.8 %; Hematocrit 36.6 % (37.0-47.0); Hemoglobin 12.3 g/dL (11.5-15.3); Lymphocytes # 3.1 10^3/uL (0.8-4.8); Lymphocytes % 23.8 %; Mean Corpuscular HGB Conc 33.6 g/dL (30.0-36.0); Mean Corpuscular Hemoglobin 33.2 pg (28.0-34.0); Mean Corpuscular Volume 98.9 fL (81-99); Mean Platelet Volume 10.6 fL (7.4-10.4); Monocytes # 0.9 10^3/uL (0.2-0.9); Monocytes % 6.5 %; Neutrophils # 8.87 10^3/uL (1.8-7.7); Neutrophils % 68.1 %; Nucleated Red Blood Cells % 0 %; Platelet Count 255 10^3/cmm (130-400)
[2020-02-26] MEDS: fentaNYL 50 mcg/mL INJ 2mL IV (12:41)
--- NOTE | 2020-02-26 12:46 | PM.PN ---
Subjective Subjective: Interval history: 19 year old, 2, Para 0-0-1-0 with an LMP of 07/04/2019 and a EDC of 03/02/2020 based on 5 week ultrasound, which places her at 39 2/7 weeks gestation. Having contraction pain Vitals/I&O/Wt Last Vital Signs Temp 98.3 F 02/26/20 11:26 Pulse 67 02/26/20 13:22 Resp 18 02/26/20 12:41 BP 119/77 02/26/20 13:22 Weight last 48 hrs Weight 78.471 kg Physical Exam Narrative: EXAM NARRATIVE: GA: Alert and oriented ?3. Lungs: Clear to auscultation bilaterally. Heart: Regular rhythm and rate. Abdomen: Gravid, fundal height correlates dates, nontender. FIRER ELECTRIC LOCOMOTIVE: SVE; dilation: 6 cm, effacement: 100 %, station: 0, presentation: Vertex, membranes: AROM clear. Extremities: no edema, no cyanosis, no calves pain. heart tracing: Basal rate: 140s bpm, Variability: moderate, Accelerations: Present, Decelerations: Absent, Contractions: Every 4-5 minutes. Data : 02/26/20 11:30 A&P Assessment and plan (1) Term : heart tracing category 1. scalp stimulation good. AROM with clear fluids Anticipate vaginal delivery Status: Acute Attestations Medical Necessity Statement*: my professional opinion per admitting diagnosis Coding Level of Care Code Acute Pharmacy Ancillary for Chg Fwd Diagnoses Term Z34.90
--- NOTE | 2020-02-26 13:17 | PC.NURSE ---
Moderate amount of bloody show noted, with clots
[2020-02-26] MEDS: ondansetron 2 mg/ML SDV 2 mL 4 MG IVP (13:36)
--- NOTE | 2020-02-26 16:51 | P.PCNOB_ITS ---
Delivery Note: Date of delivery: February 26, 2020 Pre-delivery diagnoses: term Post-delivery diagnoses: term delivered Op report anesthesia: None Delivering Physician: Rasta Rick M.D. Estimated blood loss (mL): 300 Pre-Delivery Course: The patient is a 19 year old, 2, Para 0-0-1-0 with an LMP of 07/04/2019 and a EDC of 03/02/2020 based on 5 week ultrasound, which places her at 39 2/7 weeks gestation who has been receiving care from [facility]. She has been experiencing painful uterine contractions for the past 6 hours. The contractions are occurring at 4 minute intervals with approximately 30 second duration. She continues to feel movement between the contractions. She denies vaginal bleeding or rupture of membranes. CC: Onset of labor at term. HPI: Received appropriate care. Daily vitamins since two months prior to conception. labs have all been normal, including negative for HIV. She was found to negative for Group B Strep from screening at 36 weeks. She has gained approximately 26 lbs throughout the . She denies a history of HTN during . Glucose tolerance screening for gestational diabetes was negative. Delivery: The patient was noted to be complete and pushing, so was placed in the dorsal lithotomy position, prepped and draped in the usual sterile fashion for a vaginal delivery. Pt. Noted to have epidural anesthesia. At 1512 the patient delivered a full-term male infant weighing 3055 g with scores of 9 and 9 at one and five minutes, respectively. The vertex was delivered spontaneously over intact perineum. The patient was asked to push and the head delivered spontaneously in the SHENA position, over an intact perineum. A nuchal cord was checked and none noted. The anterior shoulder delivered easily and the posterior shoulder followed. The remainder of the was easily delivered and the oropharynx and nasopharynx was bulb suctioned. The was noted to have spontaneous cry and spontaneous movement of all four extremities. The cord was clamped x 2 and cut and noted to have 2 arteries and one vein. The infant was passed to the mother's abdomen where nursing personnel were in attendance. The placenta delivered intact spontaneously and the uterus was explored. 20 units of Pitocin was placed in the IV bag to firm the uterus. Examination of the cervix and vaginal vault did not reveal any lacerations. A vaginal pack was then placed. Examination of the perineum showed no lacerations. The vaginal pack was then removed. The patient tolerated this procedure well, and recovered in L&D with her infant to the OB gutierrez. All sponge and needle counts were correct. A&P Assessment and plan (1) Term delivered: Status: Acute Coding Level of Care Code Acute Dinkey Engine Firer/Fireman for Chg Fwd Diagnoses Term delivered O80
[2020-02-26] MEDS: ibuprofen 800 mg tablet PO (21:41)
[2020-02-27 01:33] VITALS: BP 112/71; PULSE 64; RESP 18; TEMP 36.7
[2020-02-27 05:27] VITALS: BP 121/80; PULSE 73; RESP 16; TEMP 36.9
[2020-02-27 06:13] LABS: Hematocrit 32.5 % (37.0-47.0); Hemoglobin 10.8 g/dL (11.5-15.3); Mean Corpuscular HGB Conc 33.2 g/dL (30.0-36.0); Mean Corpuscular Hemoglobin 33.1 pg (28.0-34.0); Mean Corpuscular Volume 99.7 fL (81-99); Mean Platelet Volume 10.5 fL (7.4-10.4); Platelet Count 223 10^3/cmm (130-400); Red Blood Count 3.26 10^6/uL (4.1-5.3); Red Cell Distribution Width 13.8 % (12.1-15.1); White Blood Count 14.6 10^3/uL (4.0-10.0)
[2020-02-27] MEDS: HYDROcodone-acetaminophen 5-325 mg Tablet PO (07:35)
[2020-02-27 09:15] VITALS: BP 130/88; PULSE 51; RESP 16; TEMP 36.9
[2020-02-27] MEDS: ibuprofen 800 mg tablet PO ×2 (09:19→17:04)
[2020-02-27] MEDS: docusate sodium 100 mg Capsule PO ×2 (09:19→17:04)
[2020-02-27] MEDS: prenatal vitamin Capsule 1 CAP PO (09:19)
[2020-02-27 17:15] VITALS: BP 110/69; PULSE 57; RESP 16; TEMP 36.8
--- NOTE | 2020-02-27 17:23 | P.DS_ITS ---
Discharge Providers ASSOCIATE PROFESSOR OF ART Date of Admission: 02/26/20 11:00 Date of Discharge: 02/27/20 Attending Provider at Admission: Rasta Rick MD Attending Provider at Discharge: Rasta Rick MD Primary Care Provider: ALVIN Cox Diagnoses at Discharge Discharge Diagnosis (1) Term delivered: Status: Acute Problem details: status post spontaneous vaginal delivery day 1 Reason for Visit Reason for Visit: Abdominal pain Hospital Course Hospital Course: 20-year-old female , came to labor and delivery in active labor complaining of contractions. She was admitted to labor and delivery and progressed to have a spontaneous vaginal delivery with out complications. overnight observation was uneventful. She is afebrile and hemodynamically stable. Tolerating diet well. Ambulating without difficulty. Breast-feeding without difficulty. Refers she doesn't know which method of contraception she wants to use yet and will decide by the time she comes in for 6 week visit. Information Peripartum Data: Infant Delivery Method: Vaginal Physical Exam Narrative: EXAM NARRATIVE: GA; alert and oriented x 3 HEENT: normal Breasts: engorged Nipples - skin intact Lungs; clear to auscultation Heart: regular rhythm, no murmurs. Abd: Appropriately tender. BS+. Uterine fundus below umbilicus. No Fundal Tenderness. Perineum: normal lochia. Extremities: no edema, no cyanosis, no tenderness. Discharge Data Data Completed and Pending: Labs from last 24 hours 02/27/20 05:35 WBC 14.6 H RBC 3.26 L Hgb 10.8 L Hct 32.5 L MCV 99.7 H MCH 33.1 MCHC 33.2 RDW 13.8 Plt Count 223 MPV 10.5 H Vitals: Last Vital Signs Temp 98.4 F 02/27/20 09:15 Pulse 51 L 02/27/20 09:15 Resp 16 02/27/20 09:15 BP 130/88 02/27/20 09:15 Discharge Plan Discharge Patient Disposition: Home Condition: Stable Prescriptions: New ferrous sulfate [Iron (ferrous sulfate)] 325 mg (65 mg iron) tablet 325 mg PO BID Qty: 60 RF: 0 ibuprofen 800 mg tablet 800 mg PO TID PRN (Reason: pain) Qty: 60 RF: 0 acetaminophen 325 mg capsule 325 mg PO Q4H PRN (Reason: fever or pain) Qty: 60 RF: 0 Continued prenat.vits,aníbal,[id number]-[id number]-[id number] Tablet 1 tab PO DAILY RF: 0 acyclovir 400 mg tablet 400 mg PO BID Qty: 60 RF: 1 Ambien 10 mg Tablet 10 mg PO BEDTIME PRN (Reason: Sleep) RF: 0 Discharge Orders: Discharge Order (Routine); Ordered 02/27/20 Ordered By: Rasta Rick Referrals: Rasta Rick MD [Physician] - 6 Weeks Discharge Diet: As Directed Discharge Activity: Increase activity as tolerated Patient Instructions: Bleeding (DC), OB Discharge Report, OB Food/Drug Interaction Guide, OB Home Care, OB Proud Parent Packet, OB Vaginal Deliveries - [facility] Activity Restrictions/Additional Instructions: Pelvic rest for 6 weeks (no sex, no tampons, no vaginal douches). Return to the emergency room if any fever, increased bleeding or pain. Discharge Attestations ASSOCIATE PROFESSOR OF ART Time Spent in Discharge Care*: greater than 30 min Coding Level of Care Code Acute Concrete Mixing Truck Driver for g Fwd Diagnoses Term delivered O80
[2020-02-27 19:15] VITALS: BP 123/67; PULSE 60; RESP 18; TEMP 36.7; O2SAT 98
--- NOTE | 2020-02-28 15:29 | PC.RESP ---
Smoking Cessation information sent to patient.
== END 2020-02-27 19:32 | disposition home or self-care (01) | DRG 806 ==
LOC: OPOB 11:03 → OBGYN 11:04 → OPOB 15:42 → OBGYN 15:42
PROVIDERS: Admitting Provider Obstetrics & Gynecology; PCP Nurse Practitioner Family; Visit Provider Obstetrics & Gynecology
DX: O99.344 Other mental disorders complicating childbirth (principal); O98.32 Other infections with a predominantly sexual mode of transmission complicating childbirth; Z37.0 Single live birth; O99.324 Drug use complicating childbirth; F41.8 Other specified anxiety disorders; A60.00 Herpesviral infection of urogenital system, unspecified; O99.334 Smoking (tobacco) complicating childbirth; F17.210 Nicotine dependence, cigarettes, uncomplicated; F12.90 Cannabis use, unspecified, uncomplicated; Z3A.39 39 weeks gestation of pregnancy; O75.89 Other specified complications of labor and delivery; G47.00 Insomnia, unspecified; Z87.442 Personal history of urinary calculi
CPT/HCPCS: 12345; 36415; 59025; 59409; 80306; 85025; 85027; 90471; 90686; 96374; 96375; 98960; 99211; J2405; J3010

== ENCOUNTER → 2020-10-18 14:15 | Outpatient (BNVA) | payer BC, MEDICAID, SELFPAY | PROVIDERS: PCP Registered Nurse; Visit Provider Nurse Practitioner Family | DX: N91.2 Amenorrhea, unspecified (principal); F43.10 Post-traumatic stress disorder, unspecified; F32.9 Major depressive disorder, single episode, unspecified | CPT/HCPCS: 81025 ==

== ENCOUNTER → 2020-10-23 12:39 | Outpatient (BNVA) | payer BC, SELFPAY | PROVIDERS: PCP Registered Nurse; Visit Provider Social Worker | DX: F32.9 Major depressive disorder, single episode, unspecified (principal); F43.11 Post-traumatic stress disorder, acute | CPT/HCPCS: 90834 ==

== ENCOUNTER → 2020-11-06 13:08 | Outpatient (BNVA) | payer BC, SELFPAY | PROVIDERS: PCP Registered Nurse; Visit Provider Social Worker | DX: F32.9 Major depressive disorder, single episode, unspecified (principal); F43.10 Post-traumatic stress disorder, unspecified | CPT/HCPCS: 90834 ==

== ENCOUNTER → 2020-11-20 07:39 | Outpatient (BNVA) | payer BC, SELFPAY | PROVIDERS: PCP Registered Nurse; Visit Provider Social Worker | DX: F32.9 Major depressive disorder, single episode, unspecified (principal); F43.10 Post-traumatic stress disorder, unspecified | CPT/HCPCS: 90834 ==

== ENCOUNTER → 2020-12-04 14:57 | Outpatient (BNVA) | payer BC, SELFPAY | PROVIDERS: PCP Registered Nurse; Visit Provider Nurse Practitioner Family | DX: Z20.822 Contact with and (suspected) exposure to COVID-19 (principal); B34.9 Viral infection, unspecified | CPT/HCPCS: 87635 ==

== ENCOUNTER → 2020-12-05 14:08 | Outpatient (BNVA) | payer BC, SELFPAY | PROVIDERS: PCP Registered Nurse; Visit Provider Psychiatry & Neurology Psychiatry | DX: F43.12 Post-traumatic stress disorder, chronic (principal); F60.3 Borderline personality disorder; F33.1 Major depressive disorder, recurrent, moderate; F41.1 Generalized anxiety disorder; F12.20 Cannabis dependence, uncomplicated; F17.200 Nicotine dependence, unspecified, uncomplicated | CPT/HCPCS: 99204 ==

== ENCOUNTER → 2020-12-23 07:41 | Outpatient (BNVA) | payer BC, SELFPAY | PROVIDERS: PCP Registered Nurse; Visit Provider Social Worker | DX: F32.9 Major depressive disorder, single episode, unspecified (principal); F43.10 Post-traumatic stress disorder, unspecified | CPT/HCPCS: 90834 ==

== ENCOUNTER → 2021-01-06 10:58 | Outpatient (BNVA) | payer BC, SELFPAY | PROVIDERS: PCP Registered Nurse; Visit Provider Social Worker | DX: F32.9 Major depressive disorder, single episode, unspecified (principal); F43.10 Post-traumatic stress disorder, unspecified | CPT/HCPCS: 90834 ==

== ENCOUNTER → 2021-01-09 10:24 | Outpatient (BNVA) | payer BC, SELFPAY | PROVIDERS: PCP Registered Nurse; Visit Provider Psychiatry & Neurology Psychiatry | DX: F41.1 Generalized anxiety disorder (principal); F33.1 Major depressive disorder, recurrent, moderate; F60.3 Borderline personality disorder; F17.200 Nicotine dependence, unspecified, uncomplicated; F12.20 Cannabis dependence, uncomplicated; F43.12 Post-traumatic stress disorder, chronic | CPT/HCPCS: 99213 ==

== ENCOUNTER → 2021-01-22 08:56 | Outpatient (BNVA) | payer BC, SELFPAY | PROVIDERS: PCP Registered Nurse; Visit Provider Social Worker | DX: F32.9 Major depressive disorder, single episode, unspecified (principal); F43.10 Post-traumatic stress disorder, unspecified | CPT/HCPCS: 90834 ==

== ENCOUNTER → 2021-02-10 08:47 | Outpatient (BNVA) | payer BC, SELFPAY | PROVIDERS: PCP Registered Nurse; Visit Provider Social Worker | DX: F32.9 Major depressive disorder, single episode, unspecified (principal); F43.10 Post-traumatic stress disorder, unspecified | CPT/HCPCS: 90834 ==

== ENCOUNTER → 2021-02-27 07:35 | Outpatient (BNVA) | payer BC, SELFPAY | PROVIDERS: PCP Registered Nurse; Visit Provider Social Worker | DX: F32.9 Major depressive disorder, single episode, unspecified (principal); F43.10 Post-traumatic stress disorder, unspecified | CPT/HCPCS: 90834 ==

== ENCOUNTER → 2021-03-07 07:28 | Outpatient (BNVA) | payer BC, SELFPAY | PROVIDERS: PCP Registered Nurse; Visit Provider Social Worker | DX: F32.9 Major depressive disorder, single episode, unspecified (principal); F43.10 Post-traumatic stress disorder, unspecified | CPT/HCPCS: 90832 ==

== ENCOUNTER → 2021-03-11 09:23 | Outpatient (BNVA) | payer BC, SELFPAY | PROVIDERS: PCP Registered Nurse; Visit Provider Psychiatry & Neurology Psychiatry | DX: F41.1 Generalized anxiety disorder (principal); F33.1 Major depressive disorder, recurrent, moderate; F43.12 Post-traumatic stress disorder, chronic; F60.3 Borderline personality disorder; K64.9 Unspecified hemorrhoids; F17.200 Nicotine dependence, unspecified, uncomplicated; F12.20 Cannabis dependence, uncomplicated | CPT/HCPCS: 99214 ==

== ENCOUNTER → 2021-03-26 11:19 | Outpatient (BNVA) | payer BC, SELFPAY | PROVIDERS: PCP Registered Nurse; Visit Provider Social Worker | DX: F32.9 Major depressive disorder, single episode, unspecified (principal); F43.10 Post-traumatic stress disorder, unspecified | CPT/HCPCS: 90837; 90834 ==

== ENCOUNTER → 2021-04-03 09:45 | Outpatient (BNVA) | payer BC, SELFPAY | PROVIDERS: PCP Registered Nurse; Visit Provider Psychiatry & Neurology Psychiatry | DX: F41.1 Generalized anxiety disorder (principal); F33.1 Major depressive disorder, recurrent, moderate; F60.3 Borderline personality disorder; F12.20 Cannabis dependence, uncomplicated; F17.200 Nicotine dependence, unspecified, uncomplicated; F43.12 Post-traumatic stress disorder, chronic | CPT/HCPCS: 99214 ==

== ENCOUNTER → 2021-04-15 07:34 | Outpatient (BNVA) | payer BC, SELFPAY | PROVIDERS: PCP Registered Nurse; Visit Provider Social Worker | DX: F32.9 Major depressive disorder, single episode, unspecified (principal); F43.10 Post-traumatic stress disorder, unspecified | CPT/HCPCS: 90834 ==

== ENCOUNTER → 2021-05-01 12:53 | Outpatient (BNVA) | payer BC, SELFPAY | PROVIDERS: PCP Registered Nurse; Visit Provider Registered Nurse | DX: Z34.90 Encounter for supervision of normal pregnancy, unspecified, unspecified trimester (principal) | CPT/HCPCS: 81025 ==

== ENCOUNTER → 2021-05-06 08:17 | Outpatient (BNVA) | payer BC, SELFPAY | PROVIDERS: PCP Registered Nurse; Visit Provider Social Worker | DX: F32.9 Major depressive disorder, single episode, unspecified (principal); F43.10 Post-traumatic stress disorder, unspecified | CPT/HCPCS: 90832 ==

== ENCOUNTER 2021-05-14 10:23 | Emergency (ER) | payer BC, SELFPAY ==
[2021-05-14 11:21] VITALS: BP 116/70; PULSE 71; RESP 18; TEMP 37.1; O2SAT 100; BMI 33.0
--- NOTE | 2021-05-14 12:21 | US_ITS ---
WS: [id number] ULTRASOUND EARLY TECHNIQUE: Transabdominal sonography of the pelvis was performed. Followed by transvaginal sonography to better evaluate the uterus and ovaries. CLINICAL INFORMATION: 9 wk preg; bleeding LMP: 03/26/2021 Beta hCG: Unknown. COMPARISON: None. FINDINGS: UTERUS AND GESTATIONAL SAC Intrauterine gestations: Intrauterine somewhat patulous gestational sac. No pole or yolk sac visualized. Recommend short interval follow-up. Trace free fluid in the cul-de-sac. No adnexal masses. Estimated gestational age: 6w5d Yolk sac: Not present Subchorionic hemorrhage: None. OVARIES Right ovary: Normal. Left ovary: Small corpus luteum cyst measuring 10 x 7 mm. FREE FLUID Trace free fluid. US/US OB <=14 wk fetus w transvag IMPRESSION: 1. Cervix is long and closed. 2. Intrauterine somewhat patulous gestational sac with estimated gestational a ge 6 weeks 5 days. No visualized pole or yolk sac. Recommend short interv al follow-up. Findings suspicious for failed . 3. Small amount of free fluid in the cul-de-sac. 4. Ovaries are unremarkable.
[2021-05-14 13:40] LABS: Basophils # 0.1 10^3/uL (0.0-0.1); Basophils % 0.8 %; Eosinophils # 0.1 10^3/uL (0.0-0.8); Eosinophils % 0.9 %; Hematocrit 43.5 % (37.0-47.0); Hemoglobin 14.5 g/dL (11.5-15.3); Lymphocytes # 3.2 10^3/uL (0.8-4.8); Mean Corpuscular HGB Conc 33.3 g/dL (30.0-36.0); Mean Corpuscular Hemoglobin 33.1 pg (28.0-34.0); Mean Corpuscular Volume 99.3 fl (81-99); Mean Platelet Volume 9.5 fL (7.4-10.4); Monocytes # 0.7 10^3/uL (0.2-0.9); Monocytes % 6.1 %; Neutrophils # 6.58 10^3/uL (1.8-7.7); Neutrophils % 61.9 %; Nucleated Red Blood Cells % 0 %; Platelet Count 291 10^3/cmm (130-400); Red Blood Count 4.38 10^6/uL (4.1-5.3); Red Cell Distribution Width 13.4 % (12.1-15.1); White Blood Count 10.6 10^3/uL (4.0-10.0)
--- NOTE | 2021-05-14 14:22 | W.ED.FEMALGU ---
HPI - Female Genitourinary General: Chief complaint: Vaginal Bleeding Stated complaint: VAGINAL BLEEDING/7 WKS PREG/SENT FROM [facility] Time Seen by Provider: 05/14/21 14:09 Source: patient Mode of arrival: ambulatory Limitations: no limitations History of Present Illness: HPI Narrative: Patient is a nice 21-year-old female who presents to ED today for concerns of vaginal bleeding during . Patient states yesterday she had an episode of a small vaginal clot and some bleeding. She states she did not notice bleeding the rest of the day. She states this morning she again had some further bleeding that was light pink in color. She is not having abdominal pain or cramping. Somewhat unsure on LMP but thinks 03/26/21. Patient states she was told by the health department she is roughly 7 weeks. Patient states about 48 hours ago when symptoms first began she went to [facility] ED and they did a serum quant and results were 24,000. They stated they did not have ultrasound capability thus ultrasound was not performed. Patient states she went to the women's health clinic this morning and was told to come to the ED for ultrasound. Patient denies vaginal odor or vaginal discharge. Again she is not having any pelvic pain. Associated symptoms: Deny abdominal pain, nausea or vaginal discharge Patient : Yes Date of Last Menstrual Period: 02/23/21 Review of Systems Card: Denies: chest pain Resp: Denies: dyspnea GI: Denies: abdominal pain, nausea, vomiting or diarrhea : Reports: vaginal bleeding; Denies: flank pain, difficulty voiding, dysuria, urinary frequency, urinary urgency, urinary hesitancy, vaginal odor, vaginal discharge or pelvic pain Musc: Denies: back pain [facility] ED PFSH: Medical History Degenerative disc disease Depression Diverticulitis History of herpes genitalis History of kidney stones Had stone in 08/2015. Seen by Dr. Castro, Uro, at that time Posttraumatic stress disorder Psychiatric care Surgical History H/O dilation and curettage (~02/2018) Dr. Tong @ [facility] H/O esophagogastroduodenoscopy History of breast biopsy (~05/2019) Left History of laparoscopic cholecystectomy (09/02/16) Performed by Dr. Perea at [facility] in [place], [place] Status post colonoscopy Family History Father CAD (coronary artery disease) Grandfather CAD (coronary artery disease) Mother Hypertension Lung disease Psychiatric illness PTSD, anxiety, depression, and anger problems. Brother Psychiatric illness Sister Psychiatric illness Family/Other Suicide Uncle Other Cancer Diabetes Social History Quit status (tobacco): has tried quititng Number of times tried to quit tobacco: 3 Second hand smoke exposure: Yes Alcohol intake: never Additional social history: - Tobacco use: Current everyday smoker; .25 pack per day Alcohol use: Denies Drug use: Former; Marijuana last use 10/2019 Female Reproductive History: Date of last menstrual period: 02/23/21 Physical Exam Const: COMMON NORMALS: no acute distress, average body habitus, patient oriented x3, no limitations, healthy appearing, alert and well nourished GENERAL APPEARANCE: cooperative Resp: COMMON NORMALS: normal respiratory effort and clear to auscultation bilaterally AUSCULTATION: clear to auscultation bilaterally Cardio: COMMON NORMALS: regular rate and regular rhythm RATE: regular rate RHYTHM: regular rhythm GI: COMMON NORMALS: Normal to inspection, nondistended, normoactive bowel sounds present, Soft to palpation, non-tender, No hepatosplenomegaly present and no masses INSPECTION: Yes normal to inspection PALPATION: Yes Soft to palpation and Yes No hepatosplenomegaly present Neuro: COMMON NORMALS: patient oriented x3 SENSORIUM/ORIENTATION: Yes alert Course Vital Signs: Vital signs: Vital Signs Temperature 98.7 F 05/14/21 11:21 Pulse Rate 71 05/14/21 11:21 Respiratory Rate 18 05/14/21 11:21 Blood Pressure 116/70 05/14/21 11:21 Pulse Oximetry 100 05/14/21 11:21 MDM - Female MDM Narrative: Medical decision making narrative: Patient states her hCG in [place] approximately 48 hours ago was roughly 24,000. hCG today is almost 46,000. US report showing a gestational sac with no visualized pole or yolk sac-findings were suspicious for failed although her hCG is continuing to rise. Patient does have an outpatient order for repeat hCG through women's health in 48 hours. She has an ultrasound scheduled for Wednesday. Return to ED precautions given otherwise she can follow-up with the women's health clinic. Lab Data: Labs: Lab Results 05/14/21 05/14/21 13:23 13:23 WBC 10.6 10^3/uL H 10 ^3/uL (4.0-10.0) RBC 4.38 10^6/uL 10^6 /uL (4.1-5.3) Hgb 14.5 g/dL g/dL (11.5-15.3) Hct 43.5 % % (37.0-47.0) MCV 99.3 fl H fl (81-99) MCH 33.1 pg pg (28.0-34.0) MCHC 33.3 g/dL g/dL (30.0-36.0) RDW 13.4 % % (12.1-15.1) Plt Count 291 10^3/cmm 10^3 /cmm (130-400) MPV 9.5 fL fL (7.4-10.4) Neut % (Auto) 61.9 % % Lymph % (Auto) 30.0 % % Gordon % (Auto) 6.1 % % Eos % (Auto) 0.9 % % Baso % (Auto) 0.8 % % Neut # (Auto) 6.58 10^3/uL 10^3 /uL (1.8-7.7) Lymph # (Auto) 3.2 10^3/uL 10^3/ uL (0.8-4.8) Gordon # (Auto) 0.7 10^3/uL 10^3/ uL (0.2-0.9) Eos # (Auto) 0.1 10^3/uL 10^3/ uL (0.0-0.8) Baso # (Auto) 0.1 10^3/uL 10^3/ uL (0.0-0.1) Nucleated RBC % (a uto) 0 % % Nucleated RBCs # 0.0 /100WBC /100W BC Ser , [place]-Qnt 88311.00 mIU/mL m IU/mL Imaging Data: US OB: Radiologist's impression: [address] [place] [address] Ultrasound Report Signed Patient: Yissel Whaley Unit #: [id number] : [id number] Age/Sex: 21 / F ADM Date: 05/14/21 Loc: ER Room/Bed: Attending Dr: Ordering Provider/Ordering MD: Miriam Gonzales Date of Service: 05/14/21 Procedure(s): US OB <=14 wk fetus w transvag Accession Number(s): [id number] Report Number: [id number] WS: [id number] ULTRASOUND EARLY TECHNIQUE: Transabdominal sonography of the pelvis was performed. Followed by transvaginal sonography to better evaluate the uterus and ovaries. CLINICAL INFORMATION: 9 wk preg; bleeding LMP: 03/26/2021 Beta hCG: Unknown. COMPARISON: None. FINDINGS: UTERUS AND GESTATIONAL SAC Intrauterine gestations: Intrauterine somewhat patulous gestational sac. No pole or yolk sac visualized. Recommend short interval follow-up. Trace free fluid in the cul-de-sac. No adnexal masses. Estimated gestational age: 6w5d Yolk sac: Not present Subchorionic hemorrhage: None. OVARIES Right ovary: Normal. Left ovary: Small corpus luteum cyst measuring 10 x 7 mm. FREE FLUID Trace free fluid. US/US OB <=14 wk fetus w transvag IMPRESSION: 1. Cervix is long and closed. 2. Intrauterine somewhat patulous gestational sac with estimated gestational age 6 weeks 5 days. No visualized pole or yolk sac. Recommend short interval follow-up. Findings suspicious for failed . 3. Small amount of free fluid in the cul-de-sac. 4. Ovaries are unremarkable. Dictated By: Osmani Rose MD Signed By: Osmani Rose MD Signed Date/Time: 05/14/21 1308 DD/ 1301 Discharge Plan Discharge Patient Disposition: Home Clinical Impression: Bleeding in early Condition: Stable Discharge Orders: Discharge ED (Routine); Ordered 05/14/21 Ordered By: Miriam Gonzales Referrals: Antoinette Peralta FNP [Primary Care Provider] - Activity Restrictions/Additional Instructions: As we discussed you already have an outpatient order for repeat serum hCG quantitative in 48 hours and an ultrasound scheduled for Wednesday. Please complete both of these and follow-up with the women's health clinic for further evaluation/treatment. You may return to the emergency department at anytime for severe abdominal pain, severe bleeding (soaking more than 1 pad an hour), or any other concerns you may have. Coding Level of Care Code ED Guidance And Control System Engineer for Chg Fwd Exam Expanded Problem Focused
== END 2021-05-14 15:13 | disposition home or self-care (01) ==
PROVIDERS: Emergency Provider Physician Assistant; PCP Registered Nurse
DX: O20.9 Hemorrhage in early pregnancy, unspecified (principal); Z3A.01 Less than 8 weeks gestation of pregnancy; Z87.891 Personal history of nicotine dependence
CPT/HCPCS: 36415; 76801; 76817; 84702; 85025; 99283

== ENCOUNTER → 2021-05-15 07:42 | Outpatient (BNVA) | payer BC, SELFPAY | PROVIDERS: PCP Registered Nurse; Visit Provider Social Worker | DX: F32.9 Major depressive disorder, single episode, unspecified (principal) | CPT/HCPCS: 90834 ==

== ENCOUNTER 2021-05-16 13:09 | Outpatient (CLI) | payer BC, MEDICAID, SELFPAY | END 2021-05-16 13:10 | disposition home or self-care (01) | LOC: LAB 13:12 | PROVIDERS: PCP Registered Nurse; Visit Provider Obstetrics & Gynecology | DX: O46.90 Antepartum hemorrhage, unspecified, unspecified trimester (principal) | CPT/HCPCS: 36415; 84702 ==

== ENCOUNTER → 2021-05-26 13:05 | Outpatient (BNVA) | payer BC, MEDICAID, SELFPAY | PROVIDERS: PCP Registered Nurse; Visit Provider Social Worker | DX: F32.9 Major depressive disorder, single episode, unspecified (principal); F43.10 Post-traumatic stress disorder, unspecified | CPT/HCPCS: 90834 ==

== ENCOUNTER → 2021-06-02 08:31 | Outpatient (BNVA) | payer BC, MEDICAID, SELFPAY | PROVIDERS: PCP Registered Nurse; Visit Provider Social Worker | DX: F32.9 Major depressive disorder, single episode, unspecified (principal); F43.10 Post-traumatic stress disorder, unspecified | CPT/HCPCS: 90834 ==

== ENCOUNTER → 2021-06-09 07:14 | Outpatient (BNVA) | payer BC, SELFPAY | PROVIDERS: PCP Registered Nurse; Visit Provider Social Worker | DX: F32.9 Major depressive disorder, single episode, unspecified (principal); F43.10 Post-traumatic stress disorder, unspecified | CPT/HCPCS: 90837; 90834 ==

== ENCOUNTER → 2021-06-23 08:33 | Outpatient (BNVA) | payer BC, SELFPAY | PROVIDERS: PCP Registered Nurse; Visit Provider Social Worker | DX: F41.1 Generalized anxiety disorder (principal); F33.1 Major depressive disorder, recurrent, moderate; F60.3 Borderline personality disorder; F43.12 Post-traumatic stress disorder, chronic | CPT/HCPCS: 90834 ==

== ENCOUNTER → 2021-07-07 08:40 | Outpatient (BNVA) | payer BC, SELFPAY | PROVIDERS: PCP Registered Nurse; Visit Provider Obstetrics & Gynecology | DX: O99.330 Smoking (tobacco) complicating pregnancy, unspecified trimester (principal); F12.20 Cannabis dependence, uncomplicated | CPT/HCPCS: 80307; 81000; 85027; 86592; 86762; 86803; 86850; 86900; 87086; 87340; 87491; 87591; 87806 ==

== ENCOUNTER → 2021-07-31 08:15 | Outpatient (BNVA) | payer BC, SELFPAY | PROVIDERS: PCP Registered Nurse; Visit Provider Social Worker | DX: F41.1 Generalized anxiety disorder (principal); F33.1 Major depressive disorder, recurrent, moderate; F60.3 Borderline personality disorder; F43.12 Post-traumatic stress disorder, chronic | CPT/HCPCS: 90837; 90834 ==

== ENCOUNTER → 2021-08-08 07:29 | Outpatient (BNVA) | payer BC, SELFPAY | PROVIDERS: PCP Registered Nurse; Visit Provider Psychiatry & Neurology Psychiatry | DX: F41.1 Generalized anxiety disorder (principal); F33.1 Major depressive disorder, recurrent, moderate; F60.3 Borderline personality disorder; F17.200 Nicotine dependence, unspecified, uncomplicated; F12.20 Cannabis dependence, uncomplicated; F43.12 Post-traumatic stress disorder, chronic | CPT/HCPCS: 99214 ==

== ENCOUNTER 2021-08-18 20:52 | Emergency (ER) | payer BC, MEDICAID, SELFPAY ==
[2021-08-18 21:03] VITALS: BP 106/61; PULSE 77; RESP 18; TEMP 36.9; O2SAT 97; BMI 32.1
[2021-08-18 21:41] LABS: Add Urine Microscopic? NO; Charge for UA Resulting for Rev
[2021-08-18] MEDS: sodium chloride 0.9% 1,000 ML 999 ML IV (21:50)
--- NOTE | 2021-08-18 21:52 | W.ED.ABDPA2 ---
HPI - Abdominal Pain General: Chief Complaint: Abdominal Pain Stated Complaint: abdominal pain, Time Seen by Provider: 08/18/21 21:38 History of Present Illness: 21-year-old female comes in today with complaints of low back pain, and abnormal clear to pink-tinged vaginal discharge. Patient reports that when she stands up after urinating she will have a gush of fluid and at times is pink-tinged. Patient is worried she may have a leak in her amniotic sac. Patient appears well. Patient appears no acute distress. Patient's blood type is a positive. Associated Symptoms: Denies dysuria and vomiting Related Data: Date of Last Menstrual Period: 02/23/21 Review of Systems General: Reports: 10 or more systems reviewed and unremarkable except in HPI and below Card: Denies: chest pain Resp: Denies: dyspnea GI: Denies: vomiting : Reports: vaginal discharge (Clear to pink-tinged); Denies: dysuria Skin/Breast: Denies: rash PFSH ED PFSH: Medical History (Updated 08/19/21 @ 02:19 by ALVIN Whipple) Degenerative disc disease Depression Diverticulitis History of herpes genitalis History of kidney stones Had stone in 08/2015. Seen by Dr. Castro Uro, at that time Posttraumatic stress disorder Psychiatric care Surgical History H/O dilation and curettage (~02/2018) Dr. Tong @ [facility] H/O esophagogastroduodenoscopy History of breast biopsy (~05/2019) Left History of laparoscopic cholecystectomy (09/02/16) Performed by Dr. Perea at [facility] in [place], [place] Status post colonoscopy Family History (Updated 06/10/21 @ 15:43 by Khalida Mcmanus RN) Father CAD (coronary artery disease) Hyperlipidemia Grandfather CAD (coronary artery disease) Mother Hypertension Lung disease Psychiatric illness PTSD, anxiety, depression, and anger problems. Brother Psychiatric illness Sister Psychiatric illness Family/Other Suicide Uncle Hyperlipidemia paternal side Grandmother Colon cancer, Onset Age: 80 paternal Other Cancer Diabetes Denies family history of Ovarian cancer Clotting disorder Breast cancer Anesthesia complication Bleeding disorder Uterine cancer Thyroid condition Stroke Female Reproductive History: Date of last menstrual period: 02/23/21 Physical Exam Const: COMMON NORMALS: alert HENMT: COMMON NORMALS: normocephalic and Normal external nose present HEAD & SCALP: normocephalic NOSE: Normal external nose present Eye: GENERAL EYE: appearance normal, both eyes and all related structures Resp: COMMON NORMALS: normal respiratory effort Cardio: COMMON NORMALS: regular rate RATE: regular rate GI: COMMON NORMALS: Soft to palpation PALPATION: Yes Soft to palpation : COMMON NORMALS: Yes no CVA tenderness BLADDER/KIDNEY EXAM: Yes no CVA tenderness Back/Pelvis: COMMON NORMALS: no CVA tenderness Extremity: COMMON NORMALS: normal to inspection Neuro: SENSORIUM/ORIENTATION: Yes alert Skin: COMMON NORMALS: no rashes or lesions noted GENERAL SKIN EXAM: no rashes or lesions noted Course Vital Signs: Vital signs: Vital Signs Temperature 98.5 F 08/18/21 21:03 Pulse Rate 77 08/18/21 21:03 Respiratory Rate 18 08/18/21 21:03 Blood Pressure 106/61 08/18/21 21:03 Pulse Oximetry 97 08/18/21 21:03 MDM - Abdominal Pain Medical Decision Making 21-year-old female comes in today with complaints of vaginal leakage of clear to pink-tinged fluid. Patient notices it mainly when she stands after urinating. Patient also is concerned about some low back pain. Patient is about 19 weeks . On exam patient's abdomen soft nontender. Bowel sounds are present. Some tenderness is noted to the low back musculoskeletal. Vital signs are normal. Differential diagnosis includes but not limited to placenta previa, abruptio placenta, stress incontinence, UTI. Urinalysis was normal. CBC showed a mild elevation of white count 11,000, hemoglobin is 11 and hematocrit was 34. CMP was unremarkable. Ultrasound of the pelvis showed a viable and around the 19th week. No obvious abnormality was noted but final report will be through radiologist. Patient was recommended for pelvic rest. And follow-up with PLASTIC EYE TECHNICIAN tomorrow. Patient has an appointment for 330 tomorrow. She will keep that appointment but return to hospital as needed for worsening symptoms or new concerns. Lab Data : 08/18/21 21:45 08/18/21 21:45 Labs/Radiology: Laboratory Results WBC 11.8 10^3/uL (4.0-10.0) H 08/18/21 21:45 RBC 3.36 10^6/uL (4.1-5.3) L 04/04/22 21:45 Hgb 11.5 g/dL (11.5-15.3) 08/18/21 21:45 Hct 34.1 % (37.0-47.0) L 08/18/21 21:45 MCV 101.5 fl (81-99) H 08/18/21 21:45 MCH 34.2 pg (28.0-34.0) H 08/18/21 21:45 MCHC 33.7 g/dL (30.0-36.0) 08/18/21 21:45 RDW 13.2 % (12.1-15.1) 08/18/21 21:45 Plt Count 305 10^3/cmm (130-400) 08/18/21 21:45 MPV 9.6 fL (7.4-10.4) 08/18/21 21:45 Neut % (Auto) 65.9 % 08/18/21 21:45 Lymph % (Auto) 24.6 % 08/18/21 21:45 Victoria % (Auto) 7.8 % 08/18/21 21:45 Eos % (Auto) 1.0 % 08/18/21 21:45 Baso % (Auto) 0.3 % 08/18/21 21:45 Neut # (Auto) 7.78 10^3/uL (1.8-7.7) H 08/18/21 21:45 Lymph # (Auto) 2.9 10^3/uL (0.8-4.8) 08/18/21 21:45 Victoria # (Auto) 0.9 10^3/uL (0.2-0.9) 08/18/21 21:45 Eos # (Auto) 0.1 10^3/uL (0.0-0.8) 08/18/21 21:45 Baso # (Auto) 0.0 10^3/uL (0.0-0.1) 08/18/21 21:45 Nucleated RBC % (auto) 0 % 08/18/21 21:45 Nucleated RBCs # 0.0 /100WBC 08/18/21 21:45 Sodium 138 mmol/L (136-145) 08/18/21 21:45 Potassium 4.0 mmol/L (3.5-5.1) 08/18/21 21:45 Chloride 105 mmol/L (98-107) 08/18/21 21:45 Carbon Dioxide 21 mmol/L (22-29) L 08/18/21 21:45 Anion Gap 16.0 (5-19) 08/18/21 21:45 BUN 5 mg/dL (6-20) L 08/18/21 21:45 Creatinine 0.5 mg/dL (0.5-0.9) 08/18/21 21:45 GFR Calculation 152.9 mL/min (90-130) H 08/18/21 21:45 Glucose 93 mg/dL (65-115) 08/18/21 21:45 Calculated Osmolality 283 mOsm/kg (285-295) L 08/18/21 21:45 Calcium 9.3 mg/dL (8.5-10.5) 08/18/21 21:45 Total Bilirubin 0.2 mg/dL (0.15-1.2) 08/18/21 21:45 AST 13 U/L (0-32) 08/18/21 21:45 ALT 12 U/L (0-33) 08/18/21 21:45 Alkaline Phosphatase 98 IU/L (35-105) 08/18/21 21:45 Total Protein 6.8 g/dL (6.6-8.7) 08/18/21 21:45 Albumin 3.9 g/dL (3.5-5.2) 08/18/21 21:45 Globulin 2.9 g/dL (1.3-4.6) 08/18/21 21:45 Lipase 16 U/L (13-60) 08/18/21 21:45 Ser , Semi-Qnt 33263.00 mIU/mL 08/18/21 21:45 Urine Color Yellow (Yellow) 08/18/21 21:33 Urine Appearance Clear (CLEAR) 08/18/21 21:33 Urine pH 7 (5-7) 08/18/21 21:33 Ur Specific [place] 1.015 (1.005-1.030) 08/18/21 21:33 Urine Protein Neg (Negative) 08/18/21 21:33 Urine Glucose (UA) Norm (Normal) 08/18/21 21:33 Urine Ketones Negative (Negative) 04/04/22 21:33 Urine Blood Neg (Negative) 08/18/21 21:33 Urine Nitrate Negative (Negative) 08/18/21 21:33 Urine Bilirubin Neg (Negative) 08/18/21 21:33 Urine Urobilinogen Norm mg/dL (Negative) 08/18/21 21:33 Ur Leukocyte Esterase Negative (Negative) 08/18/21 21:33 Discharge Plan Discharge Patient Disposition: Home Clinical Impression: Stress incontinence during Back pain affecting Qualifiers: Trimester: second trimester Qualified Code(s): O99.891 - Other specified diseases and conditions complicating Condition: Stable Prescriptions: No Action diphenhydramine-acetaminophen [Tylenol PM Extra Strength] 25-500 mg tablet 1 tab PO Q6H PRN0RF prenat.vits,aníbal,[id number]-vrdxt Tablet 1 tab PO DAILY 0RF sertraline [Zoloft] 50 mg tablet 50 mg PO DAILY Qty: 30 0RF sertraline 100 mg tablet 100 mg PO DAILY Qty: 30 1RF Rx Instructions: Start after 1 month on 50 mg. trazodone 50 mg tablet 100 mg PO .HS PRN (Reason: insomnia) Qty: 60 2RF Discharge Orders: Discharge ED (Routine); Ordered 08/19/21 Ordered By: Yovanny Belcher Referrals: Antoinette Peralta FNP [Primary Care Provider] - Discharge Diet: Usual diet Discharge Activity: Increase activity as tolerated Patient Instructions: (ED) Activity Restrictions/Additional Instructions: Activity as tolerated. Follow-up with primary care. Return to ER for new concerns. Follow-up with medical records for copies of ultrasound. Follow-up with PLASTIC EYE TECHNICIAN in the a.m. for further evaluation and treatment. Coding Level of Care Code ED Wool Grader for Chg Fwd Exam Comprehensive
[2021-08-18 21:56] LABS: Bilirubin Urine Neg (Negative); Blood Urine Neg (Negative); Glucose Urine UA Norm (Normal); Ketones Urine Negative (Negative); Leukocyte Esterase Urine Negative (Negative); Nitrate Urine Negative (Negative); Protein Urine Neg (Negative); Specific Gravity, Urine 1.015 (1.005-1.030); Urine Appearance Clear (CLEAR); Urine Color Yellow (Yellow); Urobilinogen Urine Norm (Negative); pH Urine 7 (5-7)
[2021-08-18 22:04] LABS: Basophils % 0.3 %; Eosinophils # 0.1 10^3/uL (0.0-0.8); Hematocrit 34.1 % (37.0-47.0); Hemoglobin 11.5 g/dL (11.5-15.3); Lymphocytes # 2.9 10^3/uL (0.8-4.8); Lymphocytes % 24.6 %; Mean Corpuscular HGB Conc 33.7 g/dL (30.0-36.0); Mean Corpuscular Hemoglobin 34.2 pg (28.0-34.0); Mean Corpuscular Volume 101.5 fl (81-99); Mean Platelet Volume 9.6 fL (7.4-10.4); Monocytes # 0.9 10^3/uL (0.2-0.9); Monocytes % 7.8 %; Neutrophils # 7.78 10^3/uL (1.8-7.7); Neutrophils % 65.9 %; Nucleated Red Blood Cells % 0 %; Platelet Count 305 10^3/cmm (130-400); Red Blood Count 3.36 10^6/uL (4.1-5.3); Red Cell Distribution Width 13.2 % (12.1-15.1); White Blood Count 11.8 10^3/uL (4.0-10.0)
[2021-08-18 22:28] LABS: Alanine Aminotransferase 12 U/L (0-33); Albumin Level 3.9 g/dL (3.5-5.2); Alkaline Phosphatase 98 IU/L (35-105); Aspartate Amino Transferase 13 U/L (0-32); Blood Urea Nitrogen 5 mg/dL (6-20); Calcium 9.3 mg/dL (8.5-10.5); Carbon Dioxide 21 mmol/L (22-29); Chloride 105 mmol/L (98-107); Globulin 2.9 g/dL (1.3-4.6); Glomerular Filtration Rate 152.9 mL/min (90-130); Glucose 93 mg/dL (65-115); Lipase 16 U/L (13-60); Osmolality Calculated 283 mOsm/kg (285-295); Sodium 138 mmol/L (136-145); Total Bilirubin 0.2 mg/dL (0.15-1.2); Total Protein 6.8 g/dL (6.6-8.7)
--- NOTE | 2021-08-19 01:40 | USR_ITS ---
PROCEDURE INFORMATION: Exam: US , Limited Exam date and time: 08/19/2021 1:47 AM Age: 21 years old Clinical indication: Lmp or gestational age (in weeks): 19w3d; Other: Pittman vaginal drainage; ; Patient HX: ; Additional info: 19 weeks, vaginal drainage pink tinged TECHNIQUE: Imaging protocol: Real-time ultrasound of the maternal uterus with image documentation. Exam focused on the clinical indication. COMPARISON: US OB <= 14 weeks fetus [facility] 06/10/2021 3:03 PM FINDINGS: Gestation: Single intrauterine fetus again evident. heart rate: heart rate 136 and 147 bpm. presentation: Current cephalic presentation. Placenta: Posterior grade 1 placenta with no fluid collection along it. Internal os not clearly visible, therefore evaluation for marginal previa not possible. Amniotic fluid index: Amniotic fluid index 12.68 cm, with the largest pocket measuring 4.4 cm. BIOMETRY: Estimated due date (AUA): Estimated date of delivery 01/10/2022 indicating normal interval growth. Gestational age (AUA): Overall gestational age 19 weeks 3 days. Biparietal diameter (BPD): BPD 4.43 cm = 19 weeks 3 days. Head circumference: HC 16.70 cm = 19 weeks 3 days. MATERNAL: Cervix: Endocervical canal not clearly visible preventing a length measurement. US/US OB limited [id number] IMPRESSION: Single living 19 week 3-day-old intrauterine baby. Endocervical canal and internal os not clearly visible. No obvious complication.
[2021-08-19 03:02] VITALS: BP 122/78; PULSE 88; RESP 18; O2SAT 98
== END 2021-08-19 03:04 | disposition home or self-care (01) ==
PROVIDERS: Emergency Medicine; Emergency Provider Nurse Practitioner Family; PCP Registered Nurse
DX: O26.892 Other specified pregnancy related conditions, second trimester (principal); N39.3 Stress incontinence (female) (male); Z3A.19 19 weeks gestation of pregnancy
CPT/HCPCS: 76815; 80053; 81003; 83690; 84702; 85025; 96360; 99283; J7030

== ENCOUNTER → 2021-08-19 15:56 | Outpatient (BNVA) | payer BC, MEDICAID, SELFPAY | PROVIDERS: PCP Registered Nurse; Visit Provider Obstetrics & Gynecology | DX: Z34.80 Encounter for supervision of other normal pregnancy, unspecified trimester (principal) | CPT/HCPCS: 81000 ==

== ENCOUNTER → 2021-08-27 07:31 | Outpatient (BNVA) | payer BC, MEDICAID, SELFPAY | PROVIDERS: PCP Registered Nurse; Visit Provider Social Worker | DX: F41.1 Generalized anxiety disorder (principal); F33.1 Major depressive disorder, recurrent, moderate; F60.3 Borderline personality disorder; F43.12 Post-traumatic stress disorder, chronic | CPT/HCPCS: 90837; 90834 ==

== ENCOUNTER → 2021-08-28 10:39 | Outpatient (BNVA) | payer BC, MEDICAID, SELFPAY | PROVIDERS: PCP Registered Nurse; Visit Provider Obstetrics & Gynecology | DX: Z36.89 Encounter for other specified antenatal screening (principal) | CPT/HCPCS: 76805 ==

== ENCOUNTER → 2021-09-01 07:47 | Outpatient (BNVA) | payer BC, MEDICAID, SELFPAY | PROVIDERS: PCP Registered Nurse; Visit Provider Social Worker | DX: F41.1 Generalized anxiety disorder (principal); F33.1 Major depressive disorder, recurrent, moderate; F43.12 Post-traumatic stress disorder, chronic; F60.3 Borderline personality disorder | CPT/HCPCS: 90834 ==

== ENCOUNTER → 2021-09-26 11:51 | Outpatient (BNVA) | payer BC, MEDICAID, SELFPAY | PROVIDERS: PCP Registered Nurse; Visit Provider Obstetrics & Gynecology | DX: Z34.80 Encounter for supervision of other normal pregnancy, unspecified trimester (principal) | CPT/HCPCS: 81000; 82950 ==

== ENCOUNTER → 2021-10-03 07:21 | Outpatient (BNVA) | payer BC, MEDICAID, SELFPAY | PROVIDERS: PCP Registered Nurse; Visit Provider Psychiatry & Neurology Psychiatry | DX: F41.1 Generalized anxiety disorder (principal); F33.1 Major depressive disorder, recurrent, moderate; F60.3 Borderline personality disorder; F17.200 Nicotine dependence, unspecified, uncomplicated; F12.20 Cannabis dependence, uncomplicated; F43.12 Post-traumatic stress disorder, chronic | CPT/HCPCS: 99214 ==

== ENCOUNTER → 2021-10-20 10:58 | Outpatient (BNVA) | payer BC, MEDICAID, SELFPAY | PROVIDERS: PCP Registered Nurse; Visit Provider Obstetrics & Gynecology | DX: Z34.90 Encounter for supervision of normal pregnancy, unspecified, unspecified trimester (principal) | CPT/HCPCS: 81000; 85025 ==

== ENCOUNTER 2021-10-23 20:48 | Outpatient (CLI) | payer BC, MEDICAID, SELFPAY ==
[2021-10-23] VITALS (18 sets, daily range): BP systolic 98–119; BP diastolic 55–69; PULSE 52–95; TEMP 36.6; O2SAT 91–100; BMI 32.3
[2021-10-23] MEDS: acetaminophen 500 mg Tablet 1000 MG PO (21:32)
[2021-10-23 21:43] LABS: Add Urine Culture? No; Amorphous Sediment Urine 1+ /hpf; Bacteria Urine TRACE /hpf; Bilirubin Urine Neg (Negative); Blood Urine Neg (Negative); Glucose Urine UA Norm (Normal); Ketones Urine Negative (Negative); Leukocyte Esterase Urine Negative (Negative); Mucus Urine 1+ /hpf; Nitrate Urine Negative (Negative); Protein Urine Neg (Negative); RBC Urine 0-4 /hpf (0-2); Squamous Epithelial Cell Urine 0-4 /hpf (0-5); Urine Appearance Clear (CLEAR); Urine Color Yellow (Yellow); Urobilinogen Urine Norm (Negative); WBC Urine 0-4 /hpf (0-5); pH Urine 7 (5-7)
[2021-10-23] MEDS: terbutaline 1 mg/mL INJ 0.25 MG SUBCUT (23:12)
[2021-10-24 00:02] VITALS: PULSE 64; O2SAT 100
[2021-10-24 00:05] VITALS: BP 113/57; PULSE 61
[2021-10-24 00:07] VITALS: PULSE 68; O2SAT 100
[2021-10-24 00:12] VITALS: BP 113/57; PULSE 67; PULSE 71; O2SAT 100
[2021-10-24 00:17] VITALS: PULSE 67; O2SAT 100
== END 2021-10-24 00:23 | disposition home or self-care (01) ==
LOC: OPOB 20:49 → OBGYN 20:50
PROVIDERS: PCP Registered Nurse; Visit Provider Obstetrics & Gynecology
DX: O26.899 Other specified pregnancy related conditions, unspecified trimester (principal); Z3A.00 Weeks of gestation of pregnancy not specified; R10.2 Pelvic and perineal pain
CPT/HCPCS: 59025; 81001; 99211; J3105

== ENCOUNTER → 2021-10-28 08:04 | Outpatient (BNVA) | payer BC, MEDICAID, SELFPAY | PROVIDERS: PCP Registered Nurse; Visit Provider Social Worker | DX: F32.9 Major depressive disorder, single episode, unspecified (principal); F43.10 Post-traumatic stress disorder, unspecified; F41.1 Generalized anxiety disorder | CPT/HCPCS: 90837; 90834 ==

== ENCOUNTER 2021-11-01 18:22 | Outpatient (CLI) | payer BC, MEDICAID, SELFPAY ==
[2021-11-01] VITALS (15 sets, daily range): BP systolic 98–124; BP diastolic 55–68; PULSE 57–75; RESP 16–18; TEMP 36.2–36.6; BMI 32.1
[2021-11-01] MEDS: dextrose 5%-lactated ringers 1,000 ML 999 ML IV ×2 (19:26→20:33)
[2021-11-01] MEDS: betamethasone susp 6 mg/mL 5 mL 12 MG IM (19:28)
[2021-11-01 19:35] LABS: Bilirubin Urine Neg (Negative); Blood Urine 2+ (Negative); Glucose Urine UA Norm (Normal); Ketones Urine Negative (Negative); Leukocyte Esterase Urine Negative (Negative); Nitrate Urine Negative (Negative); Protein Urine Neg (Negative); Specific Gravity, Urine 1.015 (1.005-1.030); Urine Appearance Clear (CLEAR); Urine Color Yellow (Yellow); Urobilinogen Urine Norm (Negative); pH Urine 7 (5-7)
[2021-11-01 19:37] LABS: Add Urine Culture? No; Bacteria Urine R /hpf; WBC Urine 0-4 /hpf (0-5)
[2021-11-01 20:59] LABS: Amphetamines Screen Urine Negative (Negative); Barbiturates Screen Urine Negative (Negative); Benzodiazepines Screen Urine Negative (Negative); Cocaine Screen Urine Negative (Negative); Opiate Screen Urine Negative (Negative); PCP Screen Urine Negative (Negative); THC Screen Urine Positive (Negative)
[2021-11-01] MEDS: cyclobenzaprine 10 mg Tablet PO (21:39)
[2021-11-01] MEDS: cefTRIAXone 2,000 MG in sodium chloride 0.9% (plus) 50 ML 100 MG IV (21:42)
== END 2021-11-01 22:22 | disposition home or self-care (01) ==
LOC: OPOB 18:22 → OBGYN 18:23
PROVIDERS: PCP Registered Nurse; Visit Provider Obstetrics & Gynecology
DX: O26.899 Other specified pregnancy related conditions, unspecified trimester (principal); Z3A.00 Weeks of gestation of pregnancy not specified; R10.9 Unspecified abdominal pain
CPT/HCPCS: 59025; 80306; 81001; 96372; 99211; J0696; J0702

== ENCOUNTER 2021-11-02 21:29 | Outpatient (CLI) | payer BC, MEDICAID, SELFPAY ==
[2021-11-02 21:34] VITALS: RESP 15
[2021-11-02] MEDS: betamethasone susp 6 mg/mL 5 mL 12 MG IM (21:38)
[2021-11-02 21:42] VITALS: BP 108/62; PULSE 82
[2021-11-02 21:43] VITALS: BMI 33.7
== END 2021-11-02 21:43 | disposition home or self-care (01) ==
LOC: OPOB 21:32 → OBGYN 21:33
PROVIDERS: PCP Registered Nurse; Visit Provider Obstetrics & Gynecology
DX: O26.899 Other specified pregnancy related conditions, unspecified trimester (principal); Z3A.00 Weeks of gestation of pregnancy not specified
CPT/HCPCS: 96372; J0702

== ENCOUNTER → 2021-11-03 13:50 | Outpatient (BNVA) | payer BC, MEDICAID, SELFPAY | PROVIDERS: PCP Registered Nurse; Visit Provider Obstetrics & Gynecology | DX: Z34.90 Encounter for supervision of normal pregnancy, unspecified, unspecified trimester (principal) | CPT/HCPCS: 81000 ==

== ENCOUNTER 2021-11-07 12:39 | Outpatient (CLI) | payer BC, MEDICAID, SELFPAY ==
[2021-11-07 12:39] VITALS: BMI 32.5
[2021-11-07 13:09] VITALS: TEMP 36.1
[2021-11-07 13:19] VITALS: BP 106/63; PULSE 98
[2021-11-07 14:00] LABS: Add Urine Microscopic? YES; Bilirubin Urine Neg (Negative); Blood Urine 2+ (Negative); Glucose Urine UA Norm (Normal); Ketones Urine Negative (Negative); Leukocyte Esterase Urine Negative (Negative); Nitrate Urine Negative (Negative); Protein Urine Neg (Negative); Squamous Epithelial Cell Urine 0-4 /hpf (0-5); Urine Appearance Clear (CLEAR); Urine Color Yellow (Yellow); Urobilinogen Urine Norm (Negative); WBC Urine 0-4 /hpf (0-5); pH Urine 7 (5-7)
[2021-11-07 14:01] LABS: Add Urine Culture? No
== END 2021-11-07 14:33 | disposition home or self-care (01) ==
LOC: OPOB 12:46 → OBGYN 12:47
PROVIDERS: PCP Registered Nurse; Visit Provider Obstetrics & Gynecology
DX: O26.899 Other specified pregnancy related conditions, unspecified trimester (principal); Z3A.00 Weeks of gestation of pregnancy not specified; R10.9 Unspecified abdominal pain
CPT/HCPCS: 59025; 81001; 99211

== ENCOUNTER 2021-11-11 20:37 | Outpatient (CLI) | payer BC, MEDICAID, SELFPAY ==
[2021-11-11 20:43] VITALS: BP 107/76; PULSE 109
[2021-11-11 20:50] VITALS: TEMP 36.3
[2021-11-11 20:57] VITALS: RESP 16
[2021-11-11 21:00] VITALS: BMI 32.1
[2021-11-11 21:01] VITALS: BP 101/60; PULSE 82
[2021-11-11 21:11] LABS: Add Urine Culture? No; Bacteria Urine 1+ /hpf; Bilirubin Urine Neg (Negative); Blood Urine 2+ (Negative); Glucose Urine UA Norm (Normal); Ketones Urine Negative (Negative); Leukocyte Esterase Urine Negative (Negative); Nitrate Urine Negative (Negative); Protein Urine Neg (Negative); Specific Gravity, Urine 1.005 (1.005-1.030); Urine Appearance Clear (CLEAR); Urine Color Yellow (Yellow); Urobilinogen Urine Norm (Negative); pH Urine 7 (5-7)
[2021-11-11 21:14] VITALS: BP 99/62; PULSE 93
[2021-11-11 21:30] VITALS: BP 99/62; PULSE 93; RESP 16; TEMP 36.3
== END 2021-11-11 21:45 | disposition home or self-care (01) ==
LOC: OPOB 20:38 → OBGYN 20:40
PROVIDERS: PCP Registered Nurse; Visit Provider Obstetrics & Gynecology
DX: O26.899 Other specified pregnancy related conditions, unspecified trimester (principal); Z3A.00 Weeks of gestation of pregnancy not specified; R10.2 Pelvic and perineal pain; M54.9 Dorsalgia, unspecified
CPT/HCPCS: 59025; 81001; 83986; 99211

== ENCOUNTER → 2021-11-18 14:13 | Outpatient (BNVA) | payer BC, MEDICAID, SELFPAY | PROVIDERS: PCP Registered Nurse; Visit Provider Obstetrics & Gynecology | DX: Z34.90 Encounter for supervision of normal pregnancy, unspecified, unspecified trimester (principal) | CPT/HCPCS: 81000 ==

== ENCOUNTER 2021-11-23 14:04 | Outpatient (CLI) | payer BC, MEDICAID, SELFPAY ==
[2021-11-23 14:14] VITALS: BMI 33.0
[2021-11-23 14:26] VITALS: BP 100/70; PULSE 82
[2021-11-23] MEDS: NIFEdipine 10 mg Capsule 30 MG PO (14:35)
[2021-11-23 14:48] LABS: Bilirubin Urine Neg (Negative); Blood Urine Neg (Negative); Glucose Urine UA Norm (Normal); Ketones Urine Negative (Negative); Leukocyte Esterase Urine Negative (Negative); Nitrate Urine Negative (Negative); Protein Urine Neg (Negative); Sulfosalicylic Acid Urine Negative (Negative); Urine Appearance SL Hazy (CLEAR); Urine Color Yellow (Yellow); Urobilinogen Urine Norm (Negative); WBC Urine RARE /hpf (0-5); pH Urine 8 (5-7)
[2021-11-23 14:49] LABS: Add Urine Culture? No; Bacteria Urine TRACE /hpf
[2021-11-23 14:56] VITALS: RESP 16; TEMP 36.7
[2021-11-23 15:34] VITALS: BP 108/53; PULSE 69
[2021-11-23 16:23] VITALS: BP 108/61; PULSE 71
[2021-11-23 16:35] VITALS: BP 108/61; PULSE 71
== END 2021-11-23 16:35 | disposition home or self-care (01) ==
LOC: OPOB 14:10 → OBGYN 14:12
PROVIDERS: PCP Registered Nurse; Visit Provider Obstetrics & Gynecology
DX: O26.899 Other specified pregnancy related conditions, unspecified trimester (principal); Z3A.00 Weeks of gestation of pregnancy not specified; R10.9 Unspecified abdominal pain
CPT/HCPCS: 59025; 81001; 99211

== ENCOUNTER 2021-12-13 22:20 | Outpatient (CLI) | payer BC, MEDICAID, SELFPAY ==
--- NOTE | 2021-12-13 22:25 | PC.NURSE ---
Patient states My grandmother was just admitted. I have been in the ER with her and she has been falling. I got a lot of pain down there and it feels like my clit is ripping in half.
[2021-12-13 22:28] VITALS: BP 114/67; PULSE 71; TEMP 36.1
[2021-12-13 22:35] VITALS: RESP 16
[2021-12-13 22:37] VITALS: BMI 34.2
[2021-12-13 22:56] LABS: Add Urine Culture? No; Bacteria Urine TRACE /hpf; Bilirubin Urine Neg (Negative); Blood Urine Neg (Negative); Glucose Urine UA Norm (Normal); Ketones Urine Negative (Negative); Leukocyte Esterase Urine Negative (Negative); Mucus Urine TRACE /hpf; Nitrate Urine Negative (Negative); Protein Urine Neg (Negative); RBC Urine 0-4 /hpf (0-2); Specific Gravity, Urine 1.005 (1.005-1.030); Urine Appearance Clear (CLEAR); Urine Color Yellow (Yellow); Urobilinogen Urine Neg (Negative); WBC Urine 0-4 /hpf (0-5); pH Urine 7 (5-7)
[2021-12-13 23:20] VITALS: BP 114/67; PULSE 71; RESP 16; TEMP 36.1
== END 2021-12-13 23:20 | disposition home or self-care (01) ==
LOC: OPOB 22:21 → OBGYN 23:12
PROVIDERS: PCP Registered Nurse; Visit Provider Obstetrics & Gynecology
DX: O26.899 Other specified pregnancy related conditions, unspecified trimester (principal); Z3A.00 Weeks of gestation of pregnancy not specified; R10.9 Unspecified abdominal pain
CPT/HCPCS: 59025; 81001; 99211

== ENCOUNTER 2021-12-14 14:47 | Outpatient (CLI) | payer BC, MEDICAID, SELFPAY ==
[2021-12-14 15:00] VITALS: BMI 33.8
[2021-12-14 15:04] VITALS: BP 98/54; PULSE 69
[2021-12-14 15:15] VITALS: RESP 16; TEMP 36.2
--- NOTE | 2021-12-14 15:17 | PC.NURSE ---
pt c/o constant pelvic/vaginal pressure
[2021-12-14 15:34] VITALS: BP 104/57; PULSE 60
[2021-12-14 16:06] VITALS: BP 113/67; PULSE 62
[2021-12-14 16:13] VITALS: BP 113/67; PULSE 62
== END 2021-12-14 16:13 | disposition home or self-care (01) ==
LOC: OPOB 14:47 → OBGYN 14:49
PROVIDERS: PCP Registered Nurse; Visit Provider Obstetrics & Gynecology
DX: O26.899 Other specified pregnancy related conditions, unspecified trimester (principal); Z3A.00 Weeks of gestation of pregnancy not specified; R10.2 Pelvic and perineal pain
CPT/HCPCS: 59025; 99211

== ENCOUNTER 2021-12-18 15:50 | Outpatient (CLI) | payer BC, MEDICAID, SELFPAY ==
[2021-12-18 16:00] VITALS: BMI 33.8
[2021-12-18 16:05] VITALS: TEMP 36.1
[2021-12-18 16:06] VITALS: BP 110/66; PULSE 100
[2021-12-18 16:26] VITALS: BP 105/60; PULSE 74
[2021-12-18 16:46] VITALS: BP 103/64; PULSE 77
[2021-12-18 17:06] VITALS: BP 110/61; PULSE 75
[2021-12-18 17:39] VITALS: BP 110/61; PULSE 75; RESP 18
== END 2021-12-18 17:20 | disposition home or self-care (01) ==
LOC: OPOB 15:57 → OBGYN 15:58
PROVIDERS: PCP Registered Nurse; Visit Provider Obstetrics & Gynecology
DX: O26.899 Other specified pregnancy related conditions, unspecified trimester (principal); Z3A.00 Weeks of gestation of pregnancy not specified; R10.9 Unspecified abdominal pain
CPT/HCPCS: 59025; 81000; 87081; 87086; 99211

== ENCOUNTER 2021-12-19 12:00 | Outpatient (CLI) | payer BC, MEDICAID, SELFPAY ==
[2021-12-19 12:16] VITALS: BP 117/71; PULSE 68
[2021-12-19 12:20] VITALS: TEMP 36.5
[2021-12-19 12:37] VITALS: BP 117/87; PULSE 65
[2021-12-19 12:56] VITALS: BP 108/68; PULSE 70
[2021-12-19 13:16] VITALS: BP 109/76; PULSE 63
[2021-12-19 13:33] VITALS: BP 109/76; PULSE 63; RESP 18
== END 2021-12-19 12:30 | disposition home or self-care (01) ==
LOC: OPOB 12:03 → OBGYN 12:04
PROVIDERS: PCP Registered Nurse; Visit Provider Obstetrics & Gynecology
DX: O26.899 Other specified pregnancy related conditions, unspecified trimester (principal); Z3A.00 Weeks of gestation of pregnancy not specified; N89.8 Other specified noninflammatory disorders of vagina
CPT/HCPCS: 83986

== ENCOUNTER 2021-12-19 23:14 | Inpatient (IN) | payer BC, MEDICAID, SELFPAY ==
[2021-12-19 22:57] VITALS: BP 111/66; PULSE 79
[2021-12-19 23:00] VITALS: RESP 17
[2021-12-19 23:01] VITALS: BMI 31.5
[2021-12-19 23:04] LABS: Nitrazine Paper, PH Positive
[2021-12-19 23:13] VITALS: BP 107/63; PULSE 74
[2021-12-19 23:17] LABS: Amphetamines Screen Urine Negative (Negative); Barbiturates Screen Urine Negative (Negative); Benzodiazepines Screen Urine Negative (Negative); Cocaine Screen Urine Negative (Negative); Opiate Screen Urine Negative (Negative); PCP Screen Urine Negative (Negative); THC Screen Urine Positive (Negative)
[2021-12-19 23:25] VITALS: BP 109/67; PULSE 74
[2021-12-19] MEDS: lactated ringers 1,000 ML 999 ML IV (23:39)
[2021-12-19 23:57] LABS: Basophils # 0.1 10^3/uL (0.0-0.1); Basophils % 0.3 %; Eosinophils # 0.1 10^3/uL (0.0-0.8); Eosinophils % 0.4 %; Hematocrit 36.6 % (37.0-47.0); Hemoglobin 12.2 g/dL (11.5-15.3); Lymphocytes # 3.6 10^3/uL (0.8-4.8); Lymphocytes % 21.2 %; Mean Corpuscular HGB Conc 33.3 g/dL (30.0-36.0); Mean Corpuscular Hemoglobin 31.8 pg (28.0-34.0); Mean Corpuscular Volume 95.3 fl (81-99); Mean Platelet Volume 9.9 fL (7.4-10.4); Monocytes # 1.3 10^3/uL (0.2-0.9); Monocytes % 7.9 %; Neutrophils # 11.62 10^3/uL (1.8-7.7); Neutrophils % 68.8 %; Nucleated Red Blood Cells % 0 %; Platelet Count 330 10^3/cmm (130-400); Red Blood Count 3.84 10^6/uL (4.1-5.3); Red Cell Distribution Width 13.2 % (12.1-15.1); White Blood Count 16.9 10^3/uL (4.0-10.0)
[2021-12-20] VITALS (30 sets, daily range): BP systolic 102–137; BP diastolic 58–80; PULSE 50–87; RESP 16–18; TEMP 36.6–36.9; O2SAT 98–99
[2021-12-20] MEDS: hyDROXYzine 25 mg Capsule 50 MG PO (01:32)
[2021-12-20] MEDS: oxytocin 30 UNIT/500 ML BAG IV (04:55)
[2021-12-20] MEDS: dextrose 5%-lactated ringers 1,000 ML 125 ML IV (07:26)
[2021-12-20] MEDS: fentaNYL 50 mcg/mL INJ 2mL IVP (07:47)
--- NOTE | 2021-12-20 08:39 | P.HPUD_ITS ---
Labor & Delivery H&P Update Date of Procedure: December 20, 2021 Date H&P Performed: 12/18/21 H&P update information: I have reviewed H&P completed within last 30 days, I have examined patient prior to procedure, Changes to prior documentation as noted here and H&P is in [facility] EMR on date indicated Changes to previous documentation: Patient has from with clear fluid--positive nitrazine, positive leaking of fluid. No herpes lesions noted on the vulva and patient denies any prodromal symptoms. Desires total salpingectomy for sterilization--we will plan for interval procedure Admission Diagnosis: Preop diagnosis: Left breast mass
[2021-12-20] MEDS: lidocaine 2% INJ 20 mL INJECTION (10:03)
--- NOTE | 2021-12-20 10:08 | PM.DELIVERY ---
Delivery Note: Date of delivery: December 20, 2021 - PRE-DELIVERY DIAGNOSIS: 21-year-old 4 para 1-0-2-1 at 36 weeks and 6 days P PROM GBS negative Anxiety and depression on medication Multiparity desiring interval sterilization POST-DELIVERY DIAGNOSIS: Vaginal delivery on 12/20/2021 PROCEDURE: Vaginal delivery on 12/20/2021 ANESTHESIA: 2% lidocaine DELIVERING PHYSICIAN: Hazel Sal FACOG PRE-DELIVERY COURSE: Ms. Whaley is a 21-year-old 1 para 0 at 36 weeks and 6 days who presented to labor and delivery on 12/19/2021 at 11 PM with reports of rupture of membranes which occurred at 10 PM on 12/19/2021. On examination nitrazine was positive and she was noted to be grossly ruptured with copious amounts of clear fluid leaking. No membranes were palpable. At that time she was noted to be 4 cm, 60% and -2 station. She was observed for a total of 5 hours and made no cervical change and had only occasional contractions. She was GBS negative. She was not given steroids given that she was 37 weeks on midnight. She also mentioned having a history of herpes and was not on suppression. On examination she was noted to have no lesions and denied any prodromal symptoms. She was started on Pitocin at about 5:30 AM on 12/21/2021. Pitocin was titrated to a maximum of 20 mIU. On exam she was noted to have a very tight for her back which was ruptured at 9:10 AM. With this she started to get really uncomfortable and made rapid cervical change and was fully dilated at 9:46 AM and +3 station. DELIVERY NOTE: She was set up in lithotomy position and was pushing effectively. She was noted to be +3 station and continued pushing well. The head delivered in SHENA position, nuchal cord x1 was present. It was tight and unable to be reduced. The shoulders and rest of the body followed with her next push and deliver through the cord without any difficulty. The baby's mouth and nose were suctioned and the baby was placed on the mother's belly. Once cord pulsations stopped the cord was clamped and cut. The placenta delivered spontaneously intact with membranes and was discarded. The fundus was noted to be firm and well contracted. The vagina and cervix were inspected and no cervical or sulcal lacerations were noted. There was a first-degree vaginal laceration and this was repaired with a liiano-qk-imluy suture placed after infiltration of the area with lidocaine. Good hemostasis and reapproximation was obtained. Baby girl born at 9:48 AM on 12/20/2021 with 8/9, weighing 2520 g, 5 pounds 9 ounces, 19 inches long. Placenta was delivered spontaneously intact with membranes at 9:52 AM.. Cotyledons were intact , centrally inserted umbilical cord with 3 vessels noted. Estimated blood loss 200 mL. Complications-none, both baby and mother were left to recover in a stable condition This documentation was created by [employer] worm packer software (known for inherent worm packer error). Every effort was made to assure accuracy of worm packer. Any obvious errors or omissions should be clarified with the author of the document. History History History 4 Term 1 0 Miscarriages/Ectopic 2 Living Children 1 Coding Level of Care Code Acute Air Motor Repairer for Kacy Ambrosio
[2021-12-20] MEDS: HYDROcodone-acetaminophen 5-325 mg Tablet PO ×3 (11:13→21:24)
[2021-12-20] MEDS: lanolin oint 7 gm 1 APPLIC TOPICAL (11:44)
[2021-12-20] MEDS: benzocaine-menthol 78 gm Canister 1 SPRAY TOPICAL (11:45)
[2021-12-20] MEDS: ibuprofen 800 mg tablet PO ×2 (15:19→21:24)
[2021-12-20] MEDS: docusate sodium 100 mg Capsule PO (17:40)
[2021-12-21 00:23] LABS: Hemoglobin 10.9 g/dL (11.5-15.3); Mean Corpuscular Hemoglobin 31.5 pg (28.0-34.0); Mean Corpuscular Volume 95.4 fl (81-99); Mean Platelet Volume 9.9 fL (7.4-10.4); Platelet Count 297 10^3/cmm (130-400); Red Blood Count 3.46 10^6/uL (4.1-5.3); Red Cell Distribution Width 13.3 % (12.1-15.1); White Blood Count 17.4 10^3/uL (4.0-10.0)
[2021-12-21 05:00] VITALS: BP 105/64; PULSE 55; RESP 16; TEMP 36.6; O2SAT 99
[2021-12-21] MEDS: ibuprofen 800 mg tablet PO ×2 (08:42→15:20)
[2021-12-21] MEDS: docusate sodium 100 mg Capsule PO (08:42)
[2021-12-21] MEDS: prenatal vitamin Capsule 1 CAP PO (08:43)
[2021-12-21 10:00] VITALS: BP 121/78; PULSE 55; RESP 17; TEMP 36.6; TEMP 36.7; O2SAT 99
--- NOTE | 2021-12-21 12:54 | PM.OBGYDC ---
Discharge Providers FLAME CUTTING MACHINE OPERATOR Date of Admission: 12/19/21 23:14 Date of Discharge: 12/21/21 Attending Provider at Admission: Hazel Trsitan MD Attending Provider at Discharge: Hazel Tristan MD PRE-DELIVERY DIAGNOSIS: 21-year-old 4 para 1-0-2-1 at 36 weeks and 6 days PROM GBS unknown Anxiety and depression on medication Multiparity desiring interval sterilization POST-DELIVERY DIAGNOSIS: Vaginal delivery on 12/20/2021 PROCEDURE: Vaginal delivery on 12/20/2021 at 37 weeks and 0 days ANESTHESIA: 2% lidocaine DELIVERING PHYSICIAN: Hazel Sal FACOG PRE-DELIVERY COURSE: Ms. Whaley is a 21-year-old 1 para 0 at 36 weeks and 6 days who presented to labor and delivery on 12/19/2021 at 11 PM with reports of rupture of membranes which occurred at 10 PM on 12/19/2021.? On examination nitrazine was positive and she was noted to be grossly ruptured with copious amounts of clear fluid leaking.? No membranes were palpable.? At that time she was noted to be 4 cm, 60% and -2 station.? She was observed for a total of 5 hours and made no cervical change and had only occasional contractions.? Initial verbal report was given was GBS negative however GBS negative was from 2019--her first .? Patient is GBS unknown.? No change to management-no antibiotics-as patient will be 37 weeks and 0 days with GBS unknown and does not meet criteria for GBS prophylaxis She was not given steroids given that she was 37 weeks on midnight.? She also mentioned having a history of herpes and was not on suppression.? On examination she was noted to have no lesions and denied any prodromal symptoms.? She was started on Pitocin at about 5:30 AM on 12/21/2021.? Pitocin was titrated to a maximum of 20 mIU.? On exam she was noted to have a very tight for her back which was ruptured at 9:10 AM.? With this she started to get really uncomfortable and made rapid cervical change and was fully dilated at 9:46 AM and +3 station. DELIVERY? NOTE: She was set up in lithotomy position and was pushing effectively. She was noted to be? +3 station and continued pushing well. The head delivered in SHENA position, nuchal cord x1 was present.? It was tight and unable to be reduced.? The shoulders and rest of the body followed with her next push and deliver through the cord without any difficulty. The baby's mouth and nose were suctioned and the baby was placed on the mother's belly.? Once cord pulsations stopped the cord was clamped and cut.? The placenta delivered spontaneously intact with membranes and was discarded. The fundus was noted to be firm and well contracted. The vagina and cervix were inspected and no cervical or sulcal lacerations were noted.? There was a first-degree vaginal laceration and this was repaired with a [id number]-po-[id number] suture placed after infiltration of the area with lidocaine.? Good hemostasis and reapproximation was obtained. Baby girl born at 9:48 AM on 12/20/2021 with 8/9, weighing 2520 g, 5 pounds 9 ounces, 19 inches long. Placenta was delivered spontaneously intact with membranes at 9:52 AM.. Cotyledons were intact , centrally inserted umbilical cord with 3 vessels noted. Estimated blood loss 200 mL. Complications-none, both baby and mother were left to recover in a stable condition HOSPITAL COURSE: She underwent an uncomplicated vaginal delivery on 12/20/2021. She did well on day 0 and was ambulating well, tolerating regular diet, voiding freely, passing flatus. She was breast-feeding without difficulty and bonding well with her daughter. Pain was well-controlled with by mouth pain medication. She denied nausea, vomiting, fever, chills, shortness of breath, leg pain. She had moderate vaginal bleeding. On day # 1 she continued to do well with stable vital signs and stable hemoglobin at 10.9. She was discharged home on day 1 in a stable condition, as she desired early discharge. Warning signs for endometritis, mastitis, DVT/PE were reviewed with her. Post delivery activity restrictions were also reviewed with her at all her questions were answered to her satisfaction. Plans on having a tubal ligation for contraception and will be scheduled with Dr. Rick at 5 weeks EXAM AT DISCHARGE: Gen.: No acute distress Heart: S1-S2 heard, regular rate and rhythm Lungs: Clear to auscultation bilaterally Abdomen: Soft, fundus firm below umbilicus, Legs: No calf tenderness, +1 bilateral pitting pedal edema. CONDITION AT DISCHARGE: Stable This documentation was created by [employer] weather teacher software (known for inherent weather teacher error). Every effort was made to assure accuracy of weather teacher. Any obvious errors or omissions should be clarified with the author of the document. Primary Care Provider: ALVIN Dubon Reason for Visit Reason for Visit: POSSIBLE SROM Information Peripartum Data: Infant Delivery Method: Vaginal History History History 4 Term 1 0 Miscarriages/Ectopic 2 Living Children 1 Discharge Data Studies Completed and Pending Laboratory Results WBC 17.4 10^3/uL (4.0-10.0) H 12/20/21 23:54 RBC 3.46 10^6/uL (4.1-5.3) L 12/20/21 23:54 Hgb 10.9 g/dL (11.5-15.3) L 12/20/21 23:54 Hct 33.0 % (37.0-47.0) L 12/20/21 23:54 MCV 95.4 fl (81-99) 12/20/21 23:54 MCH 31.5 pg (28.0-34.0) 12/20/21 23:54 MCHC 33.0 g/dL (30.0-36.0) 12/20/21 23:54 RDW 13.3 % (12.1-15.1) 12/20/21 23:54 Plt Count 297 10^3/cmm (130-400) 12/20/21 23:54 MPV 9.9 fL (7.4-10.4) 12/20/21 23:54 Neut % (Auto) 68.8 % 12/19/21 23:30 Lymph % (Auto) 21.2 % 12/19/21 23:30 [place] % (Auto) 7.9 % 12/19/21 23:30 Eos % (Auto) 0.4 % 12/19/21 23:30 Baso % (Auto) 0.3 % 12/19/21 23:30 Neut # (Auto) 11.62 10^3/uL (1.8-7.7) H 12/19/21 23:30 Lymph # (Auto) 3.6 10^3/uL (0.8-4.8) 12/19/21 23:30 [place] # (Auto) 1.3 10^3/uL (0.2-0.9) H 12/19/21 23:30 Eos # (Auto) 0.1 10^3/uL (0.0-0.8) 12/19/21 23:30 Baso # (Auto) 0.1 10^3/uL (0.0-0.1) 12/19/21 23:30 Nucleated RBC % (auto) 0 % 12/19/21 23:30 Nucleated RBCs # 0.0 /100WBC 12/19/21 23:30 Urine Opiates Screen Negative ng/mL (Negative) 12/19/21 22:53 Ur Barbiturates Screen Negative ng/mL (Negative) 12/19/21 22:53 Ur Phencyclidine Scrn Negative ng/mL (Negative) 12/19/21 22:53 Ur Amphetamines Screen Negative ng/mL (Negative) 12/19/21 22:53 U Benzodiazepines Scrn Negative ng/mL (Negative) 12/19/21 22:53 Urine Cocaine Screen Negative ng/mL (Negative) 12/19/21 22:53 U Marijuana (THC) Screen Positive ng/mL (Negative) H 12/19/21 22:53 Vitals Last Vital Signs Temp 98.0 F 12/21/21 10:00 Pulse 55 L 12/21/21 10:00 Resp 17 12/21/21 10:00 BP 121/78 12/21/21 10:00 Pulse Ox 99 12/21/21 10:00 O2 Del Method 12/21/21 10:00 Discharge Plan Discharge Patient Disposition: Home Condition: Stable Prescriptions: No Action prenat.vits,aníbal,zfu-hinh-kaery Tablet 1 tab PO DAILY trazodone 100 mg tablet 200 mg PO .HS PRN (Reason: insomnia) Qty: 60 2RF amoxicillin 500 mg capsule 500 mg PO TID 10 Days Qty: 30 0RF Patient Instructions: Depression (DC), Expression, Collection and Storage of Breast Milk (DC), Bleeding (DC), Preeclampsia and Eclampsia After Delivery (GEN), OB Discharge Report, OB Food/Drug Interaction Guide, Opioid Safety, OB Home Care, OB Vaginal Deliveries - [facility] Discharge Attestations FLAME CUTTING MACHINE OPERATOR Time Spent in Discharge Care*: greater than 30 min Coding Level of Care Code Acute Thermoforming Operator for Chg Hebert
[2021-12-21 15:41] VITALS: BP 125/83; PULSE 65; RESP 17; TEMP 36.8; O2SAT 98
== END 2021-12-21 15:57 | disposition home or self-care (01) | DRG 806 ==
LOC: OPOB 23:14 → OBGYN 23:14
PROVIDERS: Admitting Provider Obstetrics & Gynecology; PCP Registered Nurse; Visit Provider Obstetrics & Gynecology
DX: O69.2XX0 Labor and delivery complicated by other cord entanglement, with compression, not applicable or unspecified (principal); O99.324 Drug use complicating childbirth; Z37.0 Single live birth; O99.344 Other mental disorders complicating childbirth; O99.334 Smoking (tobacco) complicating childbirth; F17.210 Nicotine dependence, cigarettes, uncomplicated; F12.20 Cannabis dependence, uncomplicated; O70.0 First degree perineal laceration during delivery; Z3A.37 37 weeks gestation of pregnancy; F41.8 Other specified anxiety disorders; F43.10 Post-traumatic stress disorder, unspecified
CPT/HCPCS: 36415; 59025; 59409; 80306; 83986; 85025; 85027; 99211; J3010

== ENCOUNTER → 2022-04-13 12:30 | Outpatient (BNVA) | payer BC, MEDICAID, SELFPAY | PROVIDERS: PCP Registered Nurse; Visit Provider Obstetrics & Gynecology | DX: Z20.2 Contact with and (suspected) exposure to infections with a predominantly sexual mode of transmission (principal) | CPT/HCPCS: 87491; 87591; 87661 ==

== ENCOUNTER → 2022-08-17 10:55 | Outpatient (BNVA) | payer BC, MEDICAID, SELFPAY | PROVIDERS: PCP Registered Nurse; Visit Provider Obstetrics & Gynecology | DX: Z32.00 Encounter for pregnancy test, result unknown (principal) | CPT/HCPCS: 81025 ==

== ENCOUNTER → 2022-08-19 13:40 | Outpatient (BNVA) | payer BC, MEDICAID, SELFPAY | PROVIDERS: PCP Registered Nurse; Visit Provider Nurse Practitioner Women's Health | DX: Z34.90 Encounter for supervision of normal pregnancy, unspecified, unspecified trimester (principal); G47.00 Insomnia, unspecified; R21 Rash and other nonspecific skin eruption | CPT/HCPCS: 81000; 87086 ==

== ENCOUNTER → 2022-11-23 08:30 | Outpatient (BNVA) | payer BC, MEDICAID, SELFPAY | PROVIDERS: PCP Registered Nurse; Visit Provider Obstetrics & Gynecology | DX: Z34.90 Encounter for supervision of normal pregnancy, unspecified, unspecified trimester (principal); Z34.80 Encounter for supervision of other normal pregnancy, unspecified trimester; A60.00 Herpesviral infection of urogenital system, unspecified | CPT/HCPCS: 80307; 81000 ==

== ENCOUNTER → 2022-11-24 13:40 | Outpatient (BNVA) | payer BC, MEDICAID, SELFPAY | PROVIDERS: PCP Registered Nurse; Visit Provider Obstetrics & Gynecology | DX: Z34.90 Encounter for supervision of normal pregnancy, unspecified, unspecified trimester (principal) | CPT/HCPCS: 85027; 86592; 86762; 86803; 86850; 86900; 87340; 87806 ==

== ENCOUNTER 2022-12-06 18:03 | Emergency (ER) | payer BC, MEDICAID, SELFPAY ==
--- NOTE | 2022-12-06 18:25 | USR_ITS ---
PROCEDURE INFORMATION: Exam: US , Limited Exam date and time: 12/06/2022 6:34 PM Age: 22 years old Clinical indication: complicated by abdominal or pelvic pain; Lower; Second trimester (14 weeks 0 days to 27 weeks 6 days); Gestational age or lmp: 19w by lmp 20w by femur; LABS AND CLINICAL REPORTS: Last menstrual period start date: 07/24/2022 Gestational age (Established): 19 w 2 d Estimated due date (Established): 04/30/2023 TECHNIQUE: Imaging protocol: Real-time ultrasound of the maternal uterus with image documentation. Exam focused on the clinical indication. COMPARISON: US OB >= 14 weeks fetus [id number] 08/28/2021 10:40 AM FINDINGS: Gestation: Single live intrauterine gestation. heart rate: 153 bpm Placenta: Placenta is anterior. No previa. Amniotic fluid index: BLADIMIR is 19.6 cm. BIOMETRY: Gestational age (AUA): 20 w 1 d Femur length (FL): 3.2 cm. EGA (FL) is 20 w 1 d MATERNAL: Cervix: Cervix is closed and measures 5 cm in length. US/US OB limited [id number] IMPRESSION: Single live intrauterine gestation. No acute findings.
[2022-12-06 18:26] VITALS: BP 98/64; PULSE 82; RESP 16; TEMP 36.7; O2SAT 97; BMI 34.0
== END 2022-12-06 20:07 | disposition home or self-care (01) ==
LOC: ER 18:09 → OBGYN 19:49
PROVIDERS: Emergency Provider Family Medicine; PCP Registered Nurse
DX: O26.892 Other specified pregnancy related conditions, second trimester (principal); R10.2 Pelvic and perineal pain; Z3A.19 19 weeks gestation of pregnancy
CPT/HCPCS: 76815; 99284

== ENCOUNTER 2022-12-06 19:59 | Outpatient (CLI) | payer BC, MEDICAID, SELFPAY ==
[2022-12-06 20:00] VITALS: BMI 35.3
[2022-12-06 20:02] VITALS: RESP 16
[2022-12-06 20:08] VITALS: BP 102/61; PULSE 58
[2022-12-06 20:10] VITALS: BP 127/57; PULSE 63
[2022-12-06 20:29] VITALS: BP 111/69; PULSE 56
[2022-12-06 20:49] VITALS: BP 116/68; PULSE 60
[2022-12-06 21:06] LABS: Bilirubin Urine Neg (Negative); Blood Urine Neg (Negative); Glucose Urine UA Norm (Normal); Ketones Urine Negative (Negative); Leukocyte Esterase Urine Trace (Negative); Nitrate Urine Negative (Negative); Protein Urine Neg (Negative); Specific Gravity, Urine 1.015 (1.005-1.030); Urine Appearance Clear (CLEAR); Urine Color Yellow (Yellow); Urobilinogen Urine 1 mg/dL (Negative); pH Urine 6.5 (5-7)
[2022-12-06 21:07] LABS: Bacteria Urine TRACE /hpf; Squamous Epithelial Cell Urine 0-4 /hpf (0-5)
[2022-12-06 21:11] VITALS: BP 127/57; PULSE 63
== END 2022-12-06 20:15 | disposition home or self-care (01) ==
LOC: OPOB 19:59 → OBGYN 20:01
PROVIDERS: PCP Registered Nurse; Visit Provider Obstetrics & Gynecology
DX: O26.899 Other specified pregnancy related conditions, unspecified trimester (principal); N89.8 Other specified noninflammatory disorders of vagina; R25.2 Cramp and spasm; Z3A.00 Weeks of gestation of pregnancy not specified
CPT/HCPCS: 81001; 99211

== ENCOUNTER → 2022-12-14 09:40 | Outpatient (BNVA) | payer BC, MEDICAID, SELFPAY | PROVIDERS: PCP Registered Nurse; Visit Provider Obstetrics & Gynecology | DX: Z36.89 Encounter for other specified antenatal screening (principal) | CPT/HCPCS: 76805 ==

== ENCOUNTER → 2022-12-15 14:30 | Outpatient (BNVA) | payer BC, MEDICAID, SELFPAY | PROVIDERS: PCP Registered Nurse; Visit Provider Obstetrics & Gynecology | DX: Z34.80 Encounter for supervision of other normal pregnancy, unspecified trimester (principal); Z12.4 Encounter for screening for malignant neoplasm of cervix | CPT/HCPCS: 81000; 87086; 87491; 87591; 87624 ==

== ENCOUNTER → 2023-02-02 14:51 | Outpatient (BNVA) | payer BC, MEDICAID, SELFPAY | PROVIDERS: PCP Registered Nurse; Visit Provider Nurse Practitioner Women's Health | DX: Z34.90 Encounter for supervision of normal pregnancy, unspecified, unspecified trimester (principal) | CPT/HCPCS: 81000 ==

== ENCOUNTER → 2023-02-09 10:00 | Outpatient (BNVA) | payer BC, MEDICAID, SELFPAY | PROVIDERS: PCP Registered Nurse; Visit Provider Obstetrics & Gynecology | DX: Z34.90 Encounter for supervision of normal pregnancy, unspecified, unspecified trimester (principal) | CPT/HCPCS: 81000; 82950; 85025 ==

== ENCOUNTER 2023-02-18 17:43 | Outpatient (CLI) | payer BC, MEDICAID, SELFPAY ==
[2023-02-18] VITALS (9 sets, daily range): BP systolic 107–123; BP diastolic 55–62; PULSE 62–72; RESP 16–17; BMI 35.9
[2023-02-18] MEDS: NIFEdipine ER (24 hr) 30 mg Tablet PO (18:30)
--- NOTE | 2023-02-18 19:45 | PM.OBGYPN ---
COUNSELING CENTER DIRECTOR Subjective Subjective: Interval history: L&D NOTE 22 y.o. A3 EDC April 20, 2023 At 31 w 2 d + active movements Reports to L&D c/o one episode of fluid leakage Does not know whether it was urine Not feeling UCs Labor: Amniotic Membrane Status: Unknown Monitor Mode: External Contraction Pattern: Irregular Vitals/I&O/Wt Last Vital Signs Pulse 62 02/18/23 19:57 Resp 16 02/18/23 19:57 BP 109/58 02/18/23 19:57 O2 Del Method Room Air 02/18/23 19:31 Weight last 48 hrs Weight 190 lb Physical Exam Narrative: Weight 186 lbs; 5?1? VS normal Comfortable, not in any discomfort Abd: soft, nontender Spec: no fluid in vault No discharge Fern negative Cx: long / closed External monitor: occasional UCs heart tracing good variability, + accelerations A&P Assessment and plan (1) Supervision of other normal : 31 w 2 d Fetus reassuring (2) Amniotic fluid leaking: c/o fluid leakage No evidence of SROM Not in labor Plan discharge home Labor precautions Call / return if UCs, fluid leakage Attestations Medical Necessity Statement*: patient at 31 w 2 d, c/o fluid leakage. Exam negative for rupture of membranes. Coding Level of Care Code Acute Code for Chg Fwd Diagnoses Supervision of other normal Z34.80 Amniotic fluid leaking O42.90 Time Spent (min) 45
== END 2023-02-18 19:54 | disposition home or self-care (01) ==
LOC: OPOB 17:44 → OBGYN 17:45
PROVIDERS: PCP Registered Nurse; Visit Provider Obstetrics & Gynecology
DX: O47.03 False labor before 37 completed weeks of gestation, third trimester (principal); Z3A.31 31 weeks gestation of pregnancy
CPT/HCPCS: 59025; 99211

== ENCOUNTER 2023-02-22 11:30 | Outpatient (CLI) | payer BC, MEDICAID, SELFPAY ==
[2023-02-22 11:30] VITALS: BMI 36.4
[2023-02-22 11:44] VITALS: BP 116/64; PULSE 80
[2023-02-22 11:59] VITALS: BP 108/61; PULSE 65
== END 2023-02-22 12:20 | disposition home or self-care (01) ==
LOC: OPOB 11:36 → OBGYN 11:37
PROVIDERS: PCP Registered Nurse; Visit Provider Obstetrics & Gynecology
DX: O26.899 Other specified pregnancy related conditions, unspecified trimester (principal); Z3A.00 Weeks of gestation of pregnancy not specified; R10.9 Unspecified abdominal pain
CPT/HCPCS: 59025; 99211

== ENCOUNTER → 2023-03-08 13:51 | Outpatient (BNVA) | payer BC, MEDICAID, SELFPAY | PROVIDERS: PCP Registered Nurse; Visit Provider Nurse Practitioner Women's Health | DX: Z34.80 Encounter for supervision of other normal pregnancy, unspecified trimester (principal); G47.00 Insomnia, unspecified | CPT/HCPCS: 81000 ==

== ENCOUNTER 2023-03-11 21:12 | Outpatient (CLI) | payer BC, MEDICAID, SELFPAY ==
[2023-03-11] VITALS (9 sets, daily range): BP systolic 80–110; BP diastolic 44–60; PULSE 59–82; TEMP 35.8; BMI 37.8
[2023-03-11] MEDS: NIFEdipine ER (24 hr) 30 mg Tablet PO (22:41)
[2023-03-12 00:07] VITALS: BP 104/57; PULSE 58
[2023-03-12 00:24] VITALS: BP 105/63; PULSE 75
== END 2023-03-12 00:30 | disposition home or self-care (01) ==
LOC: OPOB 21:15 → OBGYN 21:16
PROVIDERS: PCP Registered Nurse; Visit Provider Obstetrics & Gynecology
DX: O26.899 Other specified pregnancy related conditions, unspecified trimester (principal); Z3A.00 Weeks of gestation of pregnancy not specified; R10.2 Pelvic and perineal pain; M25.559 Pain in unspecified hip
CPT/HCPCS: 59025; 99211

== ENCOUNTER 2023-03-13 15:15 | Outpatient (CLI) | payer BC, MEDICAID, SELFPAY ==
[2023-03-13] VITALS (18 sets, daily range): BP systolic 103–110; BP diastolic 51–61; PULSE 66–93; RESP 15; TEMP 36.4; O2SAT 98–100; BMI 38.7
[2023-03-13 15:51] LABS: Glucose Urine UA Norm (Normal); Protein Urine Neg (Negative); Specific Gravity, Urine 1.005 (1.005-1.030); Urine Appearance Clear (CLEAR); Urine Color Yellow (Yellow); pH Urine 7 (5-7)
[2023-03-13 15:52] LABS: Add Urine Culture? No; Bacteria Urine TRACE /hpf; Bilirubin Urine Neg (Negative); Blood Urine Neg (Negative); Ketones Urine Negative (Negative); Leukocyte Esterase Urine Negative (Negative); Nitrate Urine Negative (Negative); Urobilinogen Urine Norm (Negative); WBC Urine 0-4 /hpf (0-5)
[2023-03-13 15:56] LABS: Amphetamines Screen Urine Negative (Negative); Barbiturates Screen Urine Negative (Negative); Benzodiazepines Screen Urine Negative (Negative); Cocaine Screen Urine Negative (Negative); Opiate Screen Urine Negative (Negative); PCP Screen Urine Negative (Negative); THC Screen Urine Positive (Negative)
[2023-03-13] MEDS: lactated ringers 1,000 ML 999 ML IV (16:14)
[2023-03-13] MEDS: terbutaline 1 mg/mL INJ 0.25 MG SUBCUT (16:14)
[2023-03-13] MEDS: betamethasone susp 6 mg/mL 1 mL (per mL) 12 MG IM (16:16)
[2023-03-13] MEDS: NIFEdipine ER (24 hr) 30 mg Tablet PO ×2 (16:47→18:10)
--- NOTE | 2023-03-13 17:04 | PM.OBTRLD ---
OB L&D Triage Visit Information: Date of evaluation: 03/13/23 Comments/Additional reason(s) for visit: 23yo female G6, P2 at 33.1 weeks gestation with WINDY 04/30/2023 observed on labor and delivery with complaints of uterine contractions since early a.m. Patient denies leakage of fluid or vaginal bleeding. Patient receives care with Dr. Ochoa. She denies any complications during this . She admits to smoking 1/2 pack cigarettes per day and daily marijuana use. I advised her to discontinue use of both because of some of the known and unknown effects that may have on an unborn baby. Patient declines cessation. EFM?category 1, audible movement noted. Reviewed contractions and treatment plan with patient and partner at bedside. Will treat with IV fluid, terbutaline, Procardia in hopes of decreasing risk of delivery. Now after 2 hours of observation patient has had no cervical change, discussed discharging her to home and if contractions recur with increased intensity, leakage of fluid or vaginal bleeding or decreased movement patient is to return to labor and delivery without hesitation. We will encourage hallway ambulation x30 minutes, then recheck patient cervix for progression and signs of labor. If exam is unchanged will discharge to home. Patient and partner agrees with plan. Evaluation: Baseline heart rate: 130 monitor accelerations: Present 15x15 monitor decelerations: None Cervical dilation (cm): 3 Cervical effacement (%): 60 station: -3 Laboratory results: Laboratory Tests 03/13/23 03/13/23 15:30 15:30 Urine Color Yellow Urine Appearance Clear Urine pH 7 Ur Specific Gravit y 1.005 Urine Protein Neg Urine Glucose (UA) Norm Urine Ketones Negative Urine Blood Neg Urine Nitrate Negative Urine Bilirubin Neg Urine Urobilinogen Norm Ur Leukocyte Мария ase Negative Urine RBC None Urine WBC 0-4 H Ur Squamous Epith Cells 5-10 H Amorphous Sediment Not Reportable Urine Bacteria Trace Urine Opiates Scre en Negative Ur Barbiturates Sc reen Negative Ur Phencyclidine S crn Negative Ur Amphetamines Sc reen Negative U Benzodiazepines Scrn Negative Urine Cocaine Scre en Negative U Marijuana (THC) Screen Positive H Vital signs: Vital Signs - 24 hr 03/13/23 15:27 03/13/23 15:57 03/13/23 16:20 Pulse Rate 93 72 66 Blood Pressure 109/55 103/56 Pulse Oximetry 98 03/13/23 16:25 03/13/23 16:27 03/13/23 16:30 Pulse Rate 85 86 82 Blood Pressure 108/57 Pulse Oximetry 99 99 03/13/23 16:35 03/13/23 16:40 03/13/23 16:45 Pulse Rate 71 81 70 Blood Pressure Pulse Oximetry 98 98 98 03/13/23 16:50 03/13/23 16:55 03/13/23 16:57 Pulse Rate 73 83 75 Blood Pressure 108/61 Pulse Oximetry 99 99 03/13/23 17:00 Pulse Rate 74 Blood Pressure Pulse Oximetry 100 Care WINDY Calculator Estimated Delivery Date Method Current WG Current Estimate 04/30/23 LMP (Uncertain) 33w 1d Final Diagnosis Final Diagnosis (1) 33 weeks gestation of : Status: Acute Code(s): Z3A.33 - 33 weeks gestation of (2) uterine contractions: Plan: 1. IV hydration?bolus 2. Subcu terbutaline 0.2 IM 3. Steroids 12 mg IM Status: Acute Code(s): O47.00 - False labor before 37 completed weeks of gestation, unspecified trimester (3) Nicotine dependence, unspecified, uncomplicated: Status: Acute Code(s): F17.200 - Nicotine dependence, unspecified, uncomplicated (4) Cannabis use disorder, severe, dependence: Status: Acute Code(s): F12.20 - Cannabis dependence, uncomplicated Coding Level of Care Code Acute Code for Chg Fwd Diagnoses 33 weeks gestation of Z3A.33 uterine contractions O47.00 Nicotine dependence, unspecified, uncomplicated F17.200 Cannabis use disorder, severe, dependence F12.20
== END 2023-03-13 18:10 | disposition home or self-care (01) ==
LOC: OPOB 15:19 → OBGYN 15:20
PROVIDERS: PCP Registered Nurse; Visit Provider Obstetrics & Gynecology
DX: O47.00 False labor before 37 completed weeks of gestation, unspecified trimester (principal); Z3A.33 33 weeks gestation of pregnancy; O99.333 Smoking (tobacco) complicating pregnancy, third trimester; O26.893 Other specified pregnancy related conditions, third trimester; F12.20 Cannabis dependence, uncomplicated
CPT/HCPCS: 36415; 59025; 80306; 81001; 96372; 99211; J0702; J3105; J7120

== ENCOUNTER 2023-03-14 16:16 | Outpatient (CLI) | payer BC, MEDICAID, SELFPAY ==
[2023-03-14 16:21] VITALS: RESP 17
[2023-03-14 16:25] VITALS: BMI 37.8
[2023-03-14 16:36] VITALS: TEMP 36.4
[2023-03-14 16:37] VITALS: BP 110/62; PULSE 86
[2023-03-14] MEDS: betamethasone susp 6 mg/mL 1 mL (per mL) 12 MG IM (16:42)
[2023-03-14 17:20] VITALS: BP 110/62; PULSE 86
== END 2023-03-14 17:20 | disposition home or self-care (01) ==
LOC: OPOB 16:17 → OBGYN 16:18
PROVIDERS: PCP Registered Nurse; Visit Provider Obstetrics & Gynecology
DX: O26.899 Other specified pregnancy related conditions, unspecified trimester (principal); Z3A.00 Weeks of gestation of pregnancy not specified
CPT/HCPCS: 59025; 96372; 99211; J0702

== ENCOUNTER → 2023-03-22 12:52 | Outpatient (BNVA) | payer BC, MEDICAID, SELFPAY | PROVIDERS: PCP Registered Nurse; Visit Provider Obstetrics & Gynecology | DX: Z34.80 Encounter for supervision of other normal pregnancy, unspecified trimester (principal) | CPT/HCPCS: 81000 ==

== ENCOUNTER 2023-03-23 12:25 | Outpatient (CLI) | payer BC, MEDICAID, SELFPAY ==
[2023-03-23] VITALS (34 sets, daily range): BP systolic 104–121; BP diastolic 55–81; PULSE 56–253; RESP 17–20; TEMP 36.7–37; O2SAT 95–100; BMI 37.2
[2023-03-23 12:57] LABS: Bilirubin Urine 1+ (Negative); Blood Urine Neg (Negative); Glucose Urine UA Norm (Normal); Ketones Urine 2+ (Negative); Leukocyte Esterase Urine Negative (Negative); Nitrate Urine Negative (Negative); Protein Urine Neg (Negative); Specific Gravity, Urine 1.015 (1.005-1.030); Sulfosalicylic Acid Urine Negative (Negative); Urine Appearance Clear (CLEAR); Urine Color Dark Yellow (Yellow); Urobilinogen Urine Norm (Negative); pH Urine 8 (5-7)
[2023-03-23 13:00] LABS: Add Urine Culture? No; Hyaline Casts Urine 0-4 /lpf; Mucus Urine 1+ /hpf; RBC Urine 0-4 /hpf (0-2); Renal Epithelial Cells Urine 3 /hpf; Squamous Epithelial Cell Urine 0-4 /hpf (0-5); WBC Urine 0-4 /hpf (0-5)
[2023-03-23 13:01] LABS: Amphetamines Screen Urine Negative (Negative); Barbiturates Screen Urine Negative (Negative); Benzodiazepines Screen Urine Negative (Negative); Cocaine Screen Urine Negative (Negative); Opiate Screen Urine Negative (Negative); PCP Screen Urine Negative (Negative); THC Screen Urine Positive (Negative)
[2023-03-23] MEDS: sodium chloride 0.9% 1,000 ML 999 ML IV ×2 (13:32→14:38)
[2023-03-23] MEDS: NIFEdipine ER (24 hr) 30 mg Tablet PO (13:32)
[2023-03-23] MEDS: ondansetron 2 mg/ML SDV 2 mL 4 MG IVP (13:49)
== END 2023-03-23 18:40 | disposition home or self-care (01) ==
LOC: OPOB 12:26 → OBGYN 12:27
PROVIDERS: PCP Registered Nurse; Visit Provider Obstetrics & Gynecology
DX: O21.9 Vomiting of pregnancy, unspecified (principal); Z3A.00 Weeks of gestation of pregnancy not specified; R10.9 Unspecified abdominal pain
CPT/HCPCS: 36415; 59025; 80306; 81001; 96374; 99211; J2405; J7030

== ENCOUNTER 2023-03-26 15:50 | Outpatient (CLI) | payer BC, MEDICAID, SELFPAY ==
[2023-03-26] VITALS (8 sets, daily range): BP systolic 103–119; BP diastolic 55–70; PULSE 67–83; TEMP 35.8; BMI 37.8
== END 2023-03-26 18:36 | disposition home or self-care (01) ==
LOC: OPOB 15:52 → OBGYN 15:53
PROVIDERS: PCP Registered Nurse; Visit Provider Obstetrics & Gynecology
DX: O26.899 Other specified pregnancy related conditions, unspecified trimester (principal); Z3A.00 Weeks of gestation of pregnancy not specified; R10.9 Unspecified abdominal pain
CPT/HCPCS: 59025; 99211

== ENCOUNTER 2023-03-28 19:20 | Outpatient (CLI) | payer BC, MEDICAID, SELFPAY ==
[2023-03-28] VITALS (22 sets, daily range): BP systolic 116–135; BP diastolic 56–78; PULSE 64–88; RESP 17; O2SAT 96–98; BMI 37.4
== END 2023-03-28 21:45 | disposition home or self-care (01) ==
LOC: OPOB 19:20 → OBGYN 19:21
PROVIDERS: PCP Registered Nurse; Visit Provider Obstetrics & Gynecology
DX: O26.899 Other specified pregnancy related conditions, unspecified trimester (principal); Z3A.00 Weeks of gestation of pregnancy not specified
CPT/HCPCS: 59025; 99211

== ENCOUNTER 2023-04-03 15:35 | Outpatient (CLI) | payer BC, MEDICAID, SELFPAY ==
[2023-04-03 15:47] VITALS: BP 100/58; PULSE 73
[2023-04-03 16:04] VITALS: BMI 37.5
[2023-04-03 16:09] LABS: Nitrazine Paper, PH Negative
== END 2023-04-03 16:10 | disposition home or self-care (01) ==
LOC: OPOB 15:39 → OBGYN 15:40
PROVIDERS: PCP Registered Nurse; Visit Provider Obstetrics & Gynecology
DX: O26.899 Other specified pregnancy related conditions, unspecified trimester (principal); Z3A.00 Weeks of gestation of pregnancy not specified; N89.8 Other specified noninflammatory disorders of vagina
CPT/HCPCS: 59025; 83986; 99211

== ENCOUNTER 2023-04-05 20:13 | Outpatient (CLI) | payer BC, MEDICAID, SELFPAY ==
[2023-04-05] VITALS (12 sets, daily range): BP systolic 97–122; BP diastolic 50–69; PULSE 62–99; RESP 16; TEMP 35.9; BMI 38.3
== END 2023-04-05 23:00 | disposition home or self-care (01) ==
LOC: OPOB 20:14 → OBGYN 20:15
PROVIDERS: Absent Provider Obstetrics & Gynecology; PCP Registered Nurse; Visit Provider Obstetrics & Gynecology
DX: O26.899 Other specified pregnancy related conditions, unspecified trimester (principal); Z3A.00 Weeks of gestation of pregnancy not specified; R10.9 Unspecified abdominal pain
CPT/HCPCS: 59025; 81000; 87081; 99211

== ENCOUNTER 2023-04-09 09:40 | Inpatient (IN) | payer BC, MEDICAID, SELFPAY ==
[2023-04-09] VITALS (85 sets, daily range): BP systolic 99–176; BP diastolic 57–95; PULSE 57–93; RESP 16–18; TEMP 35.9–36.8; O2SAT 97–100; BMI 39.1
[2023-04-09] MEDS: ampicillin 2,000 MG in sodium chloride 0.9% (plus) 50 ML 100 MG IV (10:15)
[2023-04-09 10:20] LABS: Basophils % 0.2 %; Eosinophils # 0.1 10^3/uL (0.0-0.8); Eosinophils % 0.4 %; Hematocrit 32.7 % (36-47); Lymphocytes # 2.7 10^3/uL (0.8-4.8); Lymphocytes % 19.5 %; Mean Corpuscular HGB Conc 32.7 g/dL (30-55); Mean Corpuscular Hemoglobin 30.5 pg (27-33); Mean Corpuscular Volume 93.2 fl (85-98); Mean Platelet Volume 9.7 fL (7.4-10.4); Monocytes # 0.9 10^3/uL (0.2-0.9); Monocytes % 6.3 %; Neutrophils # 10.02 10^3/uL (1.8-7.7); Neutrophils % 72.9 %; Nucleated Red Blood Cells % 0 %; Platelet Count 295 10^3/cmm (157-399); Red Blood Count 3.51 10^6/uL (3.85-5.65); White Blood Count 13.76 10^3/uL (3.29-11.43)
[2023-04-09] MEDS: lactated ringers 1,000 ML 999 ML IV (10:20)
[2023-04-09 11:41] LABS: Amphetamines Screen Urine Negative (Negative); Barbiturates Screen Urine Negative (Negative); Benzodiazepines Screen Urine Negative (Negative); Cocaine Screen Urine Negative (Negative); Opiate Screen Urine Negative (Negative); PCP Screen Urine Negative (Negative); THC Screen Urine Positive (Negative)
[2023-04-09] MEDS: ROPivacaine syringe 100 MG/50 ML SYRINGE 10 MG EPIDURAL (12:05)
--- NOTE | 2023-04-09 12:14 | P.ANESASSM_ITS ---
Pre-Anesthetic Assessment Height/Weight: Height 1.55 m Weight 93.894 kg Pulse Resp BP Pulse Ox O2 Del Method 70 18 121/64 100 Room Air 04/09/23 12:08 04/09/23 10:00 04/09/23 12:07 04/09/23 12:08 04/09/23 10:00 Familial anesthetic complications: none Was Beta Chanel taken within 24 hours: N/A Was Clonidine taken within 24 hours: N/A Social Tobacco and No alcohol Exam alert, oriented x 3, clear to auscultation bilaterally and regular rate & rhythm Airway Submandibular: within normal limits Cervical ROM: within normal limits Mallampati: Class II Dentition: full Metabolic Morbid Obesity Neuropsych Anxiety, Depression and Headache Anesthetic Plan ASA status: 2 Anesthesia: Regional (specify below) (Labor epidural) Medications/Allergies Home Medications Medication Instructions Recorded Confirmed Last Taken Type prenat.vits,aníbal,qua-orxn-zmxoc 1 tab PO DAILY 11/23/22 04/09/23 04/02/23 History famotidine 20 mg tablet 20 mg PO BID #60 tabs 02/16/23 04/09/23 04/09/23 Rx valacyclovir 500 mg tablet 500 mg PO DAILY 03/26/23 04/09/23 04/07/23 History (Valtrex) diphenhydramine HCl 25 mg capsule 25 mg PO TID PRN Sleep 04/05/23 04/09/23 04/06/23 History (Benadryl) Allergies Allergy/AdvReac Type Severity Reaction Status Date / Time fluoxetine [From Prozac] Allergy Severe ADR-Halluci Verified 03/22/23 12:53 nating grass pollen Allergy Intermediate ALGY-Nasal Verified 03/22/23 12:53 Discharge ketchup Allergy Intermediate ADR-Gastrointestinal Verified 03/22/23 12:53 Upset gluten Allergy Unknown ADR-Abdominal Verified 03/22/23 12:53 Pain antipsychotics Allergy Unknown ADR-Halluci Uncoded 03/22/23 12:53 nating Current Medications Generic Name Dose Route Start Last Admin Trade Name Freq PRN Reason Stop Dose Admin Lactated Ringer's 1,000 mls @ 999 mls/hr 04/09/23 09:34 04/09/23 10:20 Lactated Ringers IV 999 mls/hr .Q1H1M PRN Administration See label comments PFSH Anesthesia Medical History Degenerative disc disease Depression Diverticulitis History of herpes genitalis History of kidney stones Had stone in 08/2015. Seen by Dr. Castro Uro, at that time Mid back pain Posttraumatic stress disorder Psychiatric care Surgical History H/O dilation and curettage (~02/2018) Dr. Tong @ [facility] [place] H/O esophagogastroduodenoscopy History of breast biopsy (~05/2019) Left History of laparoscopic cholecystectomy (09/02/16) Performed by Dr. Perea at [facility] in [place], [place] Status post colonoscopy Family History Father CAD (coronary artery disease) Hyperlipidemia Grandfather CAD (coronary artery disease) Mother Hypertension Lung disease Psychiatric illness PTSD, anxiety, depression, and anger problems. Brother Psychiatric illness Sister Psychiatric illness Family/Other Suicide Uncle Hyperlipidemia paternal side Grandmother Colon cancer, Onset Age: 80 paternal Other Cancer Diabetes Denies family history of Ovarian cancer Clotting disorder Breast cancer Anesthesia complication Bleeding disorder Uterine cancer Thyroid disease Stroke Social History Substance/Drug Use: former Date of last use: Marijuana Do you think of yourself as: Straight/Heterosexual Female Reproductive History : 5 Data Anesthesia 04/09/23 10:00 Short CBC 04/09/23 Range/Units 10:00 WBC 13.76 H (3.29-11.43) 10^3/uL Hgb 10.70 L (11.27-16.99) g/dL Hct 32.7 L (36-47) % MCV 93.2 (85-98) fl Plt Count 295 (157-399) 10^3/cmm Neut % (Auto) 72.9 % Neut # (Auto) 10.02 H (1.8-7.7) 10^3/uL Blood Bank 04/09/23 10:00 Blood Type A Positive Rho(D) Type Rh positive Antibody Screen Negative Cardiac Studies: No Data to Display Anesthesia Procedures Epidural Time Out Performed: Yes Consents Signed: Procedure Consent Consent: requested by attending/covering physician, from patient, risks and benefits reviewed and patient agrees to proceed Lumbar Level: L3-L4 Epidural position: sitting Epidural procedure: sterile prep of area, 1% lidocaine to numb the area, 18 g needle, neg for paresthesia, test dose given, 1.5% xylocaine 1:200k epi, placed PCEA and 0.2% Ropiavacaine @ mls/hr (10) Additional Comments: ASHLEY at 5cm, cath at 10cm, bolused 5mls of 2% lido/epi--MPF
[2023-04-09] MEDS: ampicillin 1,000 MG in sodium chloride 0.9% (plus) 50 ML 100 MG IV (12:49)
[2023-04-09] MEDS: dextrose 5%-lactated ringers 1,000 ML 125 ML IV (12:49)
[2023-04-09] MEDS: oxytocin 30 UNIT/500 ML BAG 600 UNIT IV (14:58)
--- NOTE | 2023-04-09 14:59 | P.PCNOB_ITS ---
Delivery Note: Date of delivery: April 09, 2023 Pre-delivery diagnoses: Term Post-delivery diagnoses: Same Procedure: Spontaneous vaginal delivery Delivering Physician: Rasta Rick MD Estimated blood loss (mL): 300 Delivery: The patient was noted to be complete and pushing, so was placed in the dorsal lithotomy position, prepped and draped in the usual sterile fashion for a vaginal delivery. Pt. Noted to have epidural anesthesia. At 1450 the patient delivered a viable term weighing 3085 g with scores of 8 and 9 at one and five minutes, respectively. The vertex was delivered spontaneously over intact perineum. The patient was asked to push and the head delivered spontaneously in the SHENA position, over an intact perineum. A nuchal cord was checked and none noted. The anterior shoulder delivered easily and the posterior shoulder followed. The remainder of the infant was easily delivered and the oropharynx and nasopharynx was bulb suctioned. The was noted to have spontaneous cry and spontaneous movement of all four extremities. The cord was clamped x 2 and cut and noted to have 2 arteries and one vein. The was passed to the mother's abdomen where nursing personnel were in attendance. The placenta delivered intact spontaneously and the uterus was explored. 20 units of Pitocin was placed in the IV bag to firm the uterus. Examination of the cervix and vaginal vault did not reveal any lacerations. A vaginal pack was then placed. Examination of the perineum showed no lacerations. The vaginal pack was then removed. The patient tolerated this procedure well, and recovered in L&D with her in the LDR room. All sponge and needle counts were correct. The patient referred that she desires permanent sterilization and she has signed consent during care. Mrs. Whaley 23-year-old female desire permanent sterilization. The patient was counseled regarding all methods of contraception, risk and complications. She elected to continue with plan josefina rilization after delivery. The bilateral salpingectomy is associated with lower failure rates than interval tubal occlusions done via laparoscopy. She was counseled regarding the procedure, alternative, risks and complications. Complications of tubal sterilization include problems like but not limited to anesthesia, hemorrhage, organ damage, and mortality. Although pregnancies after a sterilization procedure are rare, there is substantial risk that any post- sterilization could be ectopic. The overall failure rate is on the order of 0.5% in the first year but a study showed that sterilization failures vary by both age at sterilization and the method used. The study also found that the risks of accumulate over time, and that for women aged 18 to 27 years, failure rates can be as high as 5% with bipolar coagulation and the spring clip. The patient was informed of the risks and benefits of the procedure. Risks included but were not limited to bleeding, infection, and injury to internal organs. The patient was counseled on the risk of sterilization failure. The patient was informed that in the event a occurs the risk of ectopic is increased. The patient was counseled that bilateral tubal ligation is intended to be permanent and nonreversible. She was also counseled that there are nonpermanent forms of control available to her. The patient expressed understanding of the risks involved, all questions were answered, and the patient consented to the procedure. History History History 5 Term 2 0 Miscarriages/Ectopic 2 Living Children 2 A&P Assessment and plan (1) Term delivered: Spontaneous vaginal delivery without complication. Plan laceration Coding Level of Care Code Acute Code for Chg Fwd Diagnoses Term delivered O80
[2023-04-09] MEDS: docusate sodium 100 mg Capsule PO (19:07)
[2023-04-09] MEDS: lanolin oint 7 gm 1 APPLIC TOPICAL (19:07)
[2023-04-09] MEDS: benzocaine-menthol 78 gm Canister 1 SPRAY TOPICAL (19:07)
[2023-04-09] MEDS: ibuprofen 800 mg tablet PO (20:04)
[2023-04-09] MEDS: HYDROcodone-acetaminophen 5-325 mg Tablet PO (21:12)
[2023-04-10] VITALS (14 sets, daily range): BP systolic 104–132; BP diastolic 63–77; PULSE 51–68; RESP 14–18; TEMP 36.6–36.9; O2SAT 98–100
[2023-04-10] MEDS: HYDROcodone-acetaminophen 5-325 mg Tablet PO ×3 (03:53→20:57)
[2023-04-10 04:04] LABS: Hematocrit 27.9 % (36-47); Mean Corpuscular Hemoglobin 30.8 pg (27-33); Mean Corpuscular Volume 93.3 fl (85-98); Mean Platelet Volume 9.8 fL (7.4-10.4); Platelet Count 233 10^3/cmm (157-399); Red Blood Count 2.99 10^6/uL (3.85-5.65); White Blood Count 12.26 10^3/uL (3.29-11.43)
--- NOTE | 2023-04-10 07:23 | ANE.PACU2 ---
Inpatient post-anesthesia follow up: Airway intact: Yes Vital signs: Temperature 97.9 F Pulse Rate 54 Respiratory Rate 16 Blood Pressure 104/66 Pulse Oximetry 99 Oxygen Delivery Me thod Room Air Oxygen Flow Rate Fraction of Inspir ed Oxygen Hydration adequate: Yes Nausea and vomiting: No Pain level: 2 Mental status: Baseline Additional Comments: Anes start 04.09.23 1141 Anes end 04.09.23 3560
[2023-04-10] MEDS: famotidine 20 mg/2 mL INJ IVP (08:29)
[2023-04-10] MEDS: ceFAZolin 2,000 MG in sodium chloride 0.9% (plus) 50 ML 100 MG IV (08:29)
[2023-04-10] MEDS: lactated ringers 1,000 ML 999 ML IV (08:29)
[2023-04-10] MEDS: metoclopramide 5 mg/mL SDV 2 mL 10 MG IVP (08:29)
[2023-04-10] MEDS: citric acid-sodium citrate 30 mL UDC PO (08:29)
--- NOTE | 2023-04-10 10:58 | P.OP_ITS ---
Operative Report Date of procedure: April 10, 2023 Pre-op diagnosis: Status . Desire permanent sterilization Post-op diagnosis: Same Procedure done: bilateral salpingectomy Specimens removed/disposition: Left the right fallopian tube Surgeon: Rasta Rick MD Estimated blood loss (mL): 5 IV fluids (mL): 800 Complications: None Findings: uterus Procedure: The patient was informed of the risks and benefits of the procedure. Risks included but were not limited to bleeding, infection, and injury to internal organs. The patient was counseled on the risk of sterilization failure. The patient was informed that in the event a occurs the risk of ectopic is increased. The patient was counseled that bilateral tubal ligation is intended to be permanent and nonreversible. She was also counseled that there are nonpermanent forms of control available to her. The patient expressed understanding of the risks involved, all questions were answered, and the patient consented to the procedure. After assuring informed consent. The patient was taken to the operating room and general anesthesia administered. Time-out procedure was performed. A small, transverse, infraumbilical skin incision was made with a scalpel, and the incision was carried down through the underlying fascia until the peritoneum was identified and entered. The left fallopian tube was identified, brought into the incision and grasped with a [place] clamp. The tube was then followed out to the fimbria. An avascular midsection of the fallopian tube was grasped with a [place] clamp and brought into a knuckle. Using the [employer] device the falopian tube was grasped, clamped, seal and cut. The specimen was sent to pathology. Excellent hemostasis was noted, and the tube proximal section was returned to the abdomen. The same procedure was performed on the opposite fallopian tube. The fascia was then closed with O-Vicryl in a single layer. The skin was closed with 3-O Monocryl in a subcuticular fashion. The patient tolerated the procedure well. Needle and sponge counts were correct times 3.
--- NOTE | 2023-04-10 11:15 | ANES.PREANE2 ---
Pre-Anesthetic Assessment Height/Weight: Height 1.55 m Weight 93.894 kg Temp Pulse Resp BP Pulse Ox O2 Del Method 97.9 F 54 L 16 104/66 99 Room Air 04/10/23 04:21 04/10/23 04:21 04/10/23 04:21 04/10/23 04:21 04/10/23 04:21 04/10/23 04:21 Operation Date: 04/10/23 09:25 Proposed Procedures p Post Bilateral Tubal Ligation(Bilateral) - Rasta Rick MD Familial anesthetic complications: none Was Beta Chanel taken within 24 hours: N/A Was Clonidine taken within 24 hours: N/A Social Tobacco and No alcohol Exam alert, oriented x 3, clear to auscultation bilaterally and regular rate & rhythm Airway Submandibular: within normal limits Cervical ROM: within normal limits Mallampati: Class II Dentition: chipped GI Gastroesophageal Reflux Disease Metabolic Morbid Obesity Neuropsych Anxiety and Depression Anesthetic Plan ASA status: 2 Anesthesia: Regional (specify below) (SAB) Medications/Allergies Home Medications Medication Instructions Recorded Confirmed Last Taken Type prenat.vits,aníbal,xvw-nwiz-znxhj 1 tab PO DAILY 11/23/22 04/09/23 04/02/23 History famotidine 20 mg tablet 20 mg PO BID #60 tabs 02/16/23 04/09/23 04/09/23 Rx valacyclovir 500 mg tablet 500 mg PO DAILY 03/26/23 04/09/23 04/07/23 History (Valtrex) diphenhydramine HCl 25 mg capsule 25 mg PO TID PRN Sleep 04/05/23 04/09/23 04/06/23 History (Benadryl) Allergies Allergy/AdvReac Type Severity Reaction Status Date / Time fluoxetine [From Prozac] Allergy Severe ADR-Halluci Verified 03/22/23 12:53 nating grass pollen Allergy Intermediate ALGY-Nasal Verified 03/22/23 12:53 Discharge ketchup Allergy Intermediate ADR-Gastrointestinal Verified 03/22/23 12:53 Upset gluten Allergy Unknown ADR-Abdominal Verified 03/22/23 12:53 Pain antipsychotics Allergy Unknown ADR-Halluci Uncoded 03/22/23 12:53 nating Current Medications Generic Name Dose Route Start Last Admin Trade Name Freq PRN Reason Stop Dose Admin Hydrocodone Bitart/Acetaminophen 1 - 2 tab 04/09/23 15:03 04/10/23 03:53 Hydrocodone-Acetaminophen 5-325 Mg Tablet PO 2 tab Q6H PRN Administration MODERATE TO SEVERE PAIN Benzocaine 1 spray 04/09/23 15:03 04/09/23 19:07 Benzocaine-Menthol 78 Gm Canister TOPICAL 1 spray PRN PRN Administration PAIN Docusate Sodium 100 mg 04/09/23 18:00 04/09/23 19:07 Docusate Sodium 100 Mg Capsule PO 100 mg BID JORDI Administration Oxytocin 30 unit in 500 mls @ 600 mls/hr 04/09/23 09:34 04/09/23 16:00 Pitocin IV Infused .Q50M PRN Titration After delivery of Protocol Dextrose/Lactated Ringer's 1,000 mls @ 125 mls/hr 04/09/23 09:45 04/10/23 07:17 Dextrose 5%-Lactated Ringers IV Not Given .Q8H JORDI Ibuprofen 800 mg 04/09/23 21:00 04/09/23 20:04 Ibuprofen 800 Mg Tablet PO 800 mg TID JORDI Administration Lanolin 1 applic 04/09/23 15:03 04/09/23 19:07 Lanolin Oint 7 Gm TOPICAL 1 applic PRN PRN Administration DRYNESS PFSH Anesthesia Medical History Degenerative disc disease Depression Diverticulitis History of herpes genitalis History of kidney stones Had stone in 08/2015. Seen by Dr. Castro, Uro, at that time Mid back pain Posttraumatic stress disorder Psychiatric care Surgical History H/O dilation and curettage (~02/2018) Dr. Tong @ [facility] [place] H/O esophagogastroduodenoscopy History of breast biopsy (~05/2019) Left History of laparoscopic cholecystectomy (09/02/16) Performed by Dr. Perea at [facility] [place] in [place], [place] Status post colonoscopy Family History Father CAD (coronary artery disease) Hyperlipidemia Grandfather CAD (coronary artery disease) Mother Hypertension Lung disease Psychiatric illness PTSD, anxiety, depression, and anger problems. Brother Psychiatric illness Sister Psychiatric illness Family/Other Suicide Uncle Hyperlipidemia paternal side Grandmother Colon cancer, Onset Age: 80 paternal Other Cancer Diabetes Denies family history of Ovarian cancer Clotting disorder Breast cancer Anesthesia complication Bleeding disorder Uterine cancer Thyroid disease Stroke Social History Substance/Drug Use: former Date of last use: Marijuana Do you think of yourself as: Straight/Heterosexual Female Reproductive History : 5 Data Anesthesia 04/10/23 03:50 Short CBC 04/09/23 04/10/23 Range/Units 10:00 03:50 WBC 13.76 H 12.26 H (3.29-11.43) 10^3/uL Hgb 10.70 L 9.20 L (11.27-16.99) g/dL Hct 32.7 L 27.9 L (36-47) % MCV 93.2 93.3 (85-98) fl Plt Count 295 233 (157-399) 10^3/cmm Neut % (Auto) 72.9 % Neut # (Auto) 10.02 H (1.8-7.7) 10^3/uL Blood Bank 04/09/23 10:00 Blood Type A Positive Rho(D) Type Rh positive Antibody Screen Negative Cardiac Studies: No Data to Display
--- NOTE | 2023-04-10 11:16 | ANE.PACU2 ---
Inpatient post-anesthesia follow up: Airway intact: Yes Vital signs: Temperature 97.9 F Pulse Rate 54 Respiratory Rate 16 Blood Pressure 104/66 Pulse Oximetry 99 Oxygen Delivery Me thod Room Air Oxygen Flow Rate Fraction of Inspir ed Oxygen Hydration adequate: Yes Nausea and vomiting: No Pain level: 1 Mental status: Baseline
[2023-04-10] MEDS: ibuprofen 800 mg tablet PO ×2 (14:27→20:58)
[2023-04-10] MEDS: docusate sodium 100 mg Capsule PO (20:59)
[2023-04-10] MEDS: flu vacc pf 2023-24 (6 mos+) 60 MCG IM (21:27)
[2023-04-11 05:00] VITALS: BP 117/77; PULSE 51; RESP 16; TEMP 36.7
[2023-04-11] MEDS: HYDROcodone-acetaminophen 5-325 mg Tablet PO (05:46)
[2023-04-11 05:48] LABS: Hematocrit 29.8 % (36-47); Mean Corpuscular HGB Conc 32.9 g/dL (30-55); Mean Corpuscular Hemoglobin 30.7 pg (27-33); Mean Corpuscular Volume 93.4 fl (85-98); Mean Platelet Volume 9.3 fL (7.4-10.4); Platelet Count 283 10^3/cmm (157-399); Red Blood Count 3.19 10^6/uL (3.85-5.65); Red Cell Distribution Width 14.7 % (12.1-15.1); White Blood Count 9.79 10^3/uL (3.29-11.43)
[2023-04-11] MEDS: ibuprofen 800 mg tablet PO (09:43)
[2023-04-11] MEDS: prenatal vitamin Capsule 1 CAP PO (09:43)
[2023-04-11] MEDS: docusate sodium 100 mg Capsule PO (09:43)
[2023-04-11 09:46] VITALS: BP 132/71; PULSE 51; RESP 15; TEMP 36.6; O2SAT 99
--- NOTE | 2023-04-11 09:58 | PM.OBGYDC ---
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 Whaley 23-year-old female G5, P2 with term admitted to labor and delivery in labor and premature rupture of membranes. She progressed to have a spontaneous vaginal delivery without complication. She had expressed desire for permanent sterilization during care and she elected to continue with permanent sterilization. overnight observation was uneventful. Following morning she proceed to have a bilateral salpingectomy. Postop observation was uneventful. She is afebrile hemodynamically stable day 2 and post op day 1. Tolerating diet well. Ambulating without difficulty. Pain well under control. She was counseled regarding pelvic rest for 6 weeks (no sex, no tampons, no vaginal douches). Return to the emergency room if any fever, increased bleeding or pain. Information Peripartum Data: Delivery Method: Vaginal Physical Exam Narrative: GA; alert and oriented x 3 HEENT: normal Breasts: engorged Nipples - skin intact Lungs; clear to auscultation Heart: regular rhythm, no murmurs. Abd: Appropriately tender. BS+. Uterine fundus below umbilicus. No Fundal Tenderness. Minimal tenderness, incision clean and dry, no redness, pain or edema. Perineum: normal lochia. Extremities: no edema, no cyanosis, no tenderness. Urinary Catheter Management: [place]: Cath Placed During This Visit: yes, but has since been removed by the nurse Reason for Continuing Indwelling Catheter: Decision to DC Catheter Urinary Catheter Date of Insertion: 04/09/23 Urinary Catheter Time of Insertion: 12:45 Date Urinary Catheter Removed: 04/09/23 Time Urinary Catheter Discontinued: 14:52 History History History 5 Term 2 0 Miscarriages/Ectopic 2 Living Children 2 Discharge Data Studies Completed and Pending Pending at discharge Category Date Time Status Pathology: Surgical [PTH] Stat Pth 04/10/23 11:56 Ordered Laboratory Results WBC 9.79 10^3/uL (3.29-11.43) 04/11/23 05:40 RBC 3.19 10^6/uL (3.85-5.65) L 04/11/23 05:40 Hgb 9.80 g/dL (11.27-16.99) L 04/11/23 05:40 Hct 29.8 % (36-47) L 04/11/23 05:40 MCV 93.4 fl (85-98) 04/11/23 05:40 MCH 30.7 pg (27-33) 04/11/23 05:40 MCHC 32.9 g/dL (30-55) 04/11/23 05:40 RDW 14.7 % (12.1-15.1) 04/11/23 05:40 Plt Count 283 10^3/cmm (157-399) 04/11/23 05:40 MPV 9.3 fL (7.4-10.4) 04/11/23 05:40 Neut % (Auto) 72.9 % 04/09/23 10:00 Lymph % (Auto) 19.5 % 04/09/23 10:00 [place] % (Auto) 6.3 % 04/09/23 10:00 Eos % (Auto) 0.4 % 04/09/23 10:00 Baso % (Auto) 0.2 % 04/09/23 10:00 Neut # (Auto) 10.02 10^3/uL (1.8-7.7) H 04/09/23 10:00 Lymph # (Auto) 2.7 10^3/uL (0.8-4.8) 04/09/23 10:00 [place] # (Auto) 0.9 10^3/uL (0.2-0.9) 04/09/23 10:00 Eos # (Auto) 0.1 10^3/uL (0.0-0.8) 04/09/23 10:00 Baso # (Auto) 0.0 10^3/uL (0.0-0.1) 04/09/23 10:00 Nucleated RBC % (auto) 0 % 04/09/23 10:00 Nucleated RBCs # 0.0 /100WBC 04/09/23 10:00 Urine Opiates Screen Negative ng/mL (Negative) 04/09/23 10:36 Ur Barbiturates Screen Negative ng/mL (Negative) 04/09/23 10:36 Ur Phencyclidine Scrn Negative ng/mL (Negative) 04/09/23 10:36 Ur Amphetamines Screen Negative ng/mL (Negative) 04/09/23 10:36 U Benzodiazepines Scrn Negative ng/mL (Negative) 04/09/23 10:36 Urine Cocaine Screen Negative ng/mL (Negative) 04/09/23 10:36 U Marijuana (THC) Screen Positive ng/mL (Negative) H 04/09/23 10:36 Blood Type A Positive 04/09/23 10:00 Rho(D) Type Rh positive 04/09/23 10:00 Antibody Screen Negative 04/09/23 10:00 Vitals Last Vital Signs Temp 97.9 F 04/11/23 09:46 Pulse 51 L 04/11/23 09:46 Resp 15 04/11/23 09:46 BP 132/71 04/11/23 09:46 Pulse Ox 99 04/11/23 09:46 O2 Del Method Room Air 04/11/23 09:46 Results Labs OB ([facility]): Obstetrics US 12/06/22 Obstetrics US/Biophysical Profile 02/24/20 Blood Type A Positive 04/09/23 Antibody Screen Negative 04/09/23 Hct 29.8 % (36-47) L 04/11/23 Hgb 9.80 g/dL (11.27-16.99) L 04/11/23 Rho(D) Type Rh positive 04/09/23 Plt Count 283 10^3/cmm (157-399) 04/11/23 Hep Bs Antigen Non-reactive (Nonreactive) 11/24/22 Hepatitis C Antibody Non-reactive (Nonreactive) 11/24/22 Rubella IgG Antibody 87.7 IU/mL (0.0-10.0) H 11/24/22 RPR Nonreactive (Nonreactive) 11/24/22 HIV 1&2 Ab & HIV 1 Ag Non-reactive (Non-Reactiv) 11/24/22 C.trachomatis RNA (TMA) Not detected (NOT DETECTED) 12/15/22 N.gonorrhoeae RNA (TMA) Not detected (NOT DETECTED) 12/15/22 T. vaginalis Amp RNA Not detected (NOT DETECTED) 12/15/22 Chlamydia/GC Comment See note 12/15/22 Cystic Fibrosis Screen Negative 07/07/21 Glucose 1 Hr 50 gm 129 mg/dL (85-140) 12/14/19 Gest Glucose Tolerance 124 mg/dL (70-139) 02/09/23 Ser , Semi-Qnt 15141.00 mIU/mL 08/18/21 HCG, Qual Positive (Negative) H 08/17/22 Urine Opiates Screen Negative ng/mL (Negative) 04/09/23 Ur Barbiturates Screen Negative ng/mL (Negative) 04/09/23 Ur Phencyclidine Scrn Negative ng/mL (Negative) 04/09/23 Ur Amphetamines Screen Negative ng/mL (Negative) 04/09/23 U Benzodiazepines Scrn Negative ng/mL (Negative) 04/09/23 Urine Cocaine Screen Negative ng/mL (Negative) 04/09/23 U Marijuana (THC) Screen Positive ng/mL (Negative) H 04/09/23 Micro Urine Specimen 12/15/22 Pap Smear Interpret See note 12/15/22 Discharge Plan Discharge Patient Disposition: Home Condition: Stable Prescriptions: New hydrocodone-acetaminophen 5-325 mg tablet 1 tab PO Q4H PRN (Reason: pain) Qty: 10 0RF ibuprofen 800 mg tablet 800 mg PO TID PRN (Reason: pain) Qty: 60 0RF acetaminophen 325 mg capsule 325 mg PO Q4H PRN (Reason: fever or pain) Qty: 60 0RF docusate sodium [Colace] 100 mg capsule 100 mg PO BID Qty: 60 0RF ferrous sulfate [Iron (ferrous sulfate)] 325 mg (65 mg iron) tablet 325 mg PO BID Qty: 60 0RF Continued prenat.vits,aníbal,[id number]-[id number]-[id number] Tablet 1 tab PO DAILY famotidine 20 mg tablet 20 mg PO BID Qty: 60 0RF valacyclovir [Valtrex] 500 mg Tablet 500 mg PO DAILY diphenhydramine HCl [Benadryl] 25 mg Capsule 25 mg PO TID PRN (Reason: Sleep) Discharge Orders: Discharge Order (Routine); Ordered 04/11/23 Ordered By: Rasta Rick Referrals: Rasta Rick MD [Physician] - 2 weeks Discharge Diet: Usual diet Discharge Activity: Limit activity as instructed Patient Instructions: Depression (DC), Bleeding (DC), Preeclampsia and Eclampsia After Delivery (GEN), OB Discharge Report, OB Food/Drug Interaction Guide, OB Care at Home, Opioid Safety, OB Home Care, OB Vaginal Deliveries - [facility], Abnormal Bleeding, Tubal Ligation (GEN), Female Sterilization Activity Restrictions/Additional Instructions: 1. Please call [facility] on next working day to make your post-operative appointment in 2 weeks and visit in 6 weeks. 2. Please stay home until you come back to the clinic on first post-hospatilization check up. 3. Please follow instructions on your medications CAREFULLY. 4. If you have abdominal incision, do not cover it unless dressing is necessary because of drainage. OK to shower, but avoid bath. Leave steri-strips until they fall off. If they are still on one week after surgery, you may remove them. 5. If you had vaginal surgery or vaginal repair, Dr. Rick may instruct you to take SITZ bath. 6. Yellow, blood tinged odorous vaginal discharge is usually normal after hysterectomy or vaginal surgeries. 7. No SEXUAL INTERCOURSE, tampons, or douches until you are completely released from the post-operative care. 8. Avoid constipation by eating right and maybe using some Metamucil or Milk of Magnesia. 9. All prescription refills are given during the working hours. Please do no wait till it runs out. Call the clinic at [phone] before your medication runs out. The clinic will get in touch with your doctor to prescribe medications if necessary. 10. Please remain within 40 mile radius from our hospital because emergencies do happen now and then during the post-operative period. 11. If you have stairs at home, take one step at a time slowly and minimize the number of trips. It helps to stay in one floor for the next few days. No lifting except what you can lift by one hand until you are released from the post-operative care. 12. Driving is discouraged until you are well healed. It may be 3-4 weeks before you feel strong enough to drive. You should be able to turn and look through the rear window without pain and you should be able to push the brake pedal very hard without pain before you drive. No fast rules, but SAFETY should be your primary concern. DO NOT drive if you are on sedating medications such as narcotics. 13. Call the clinic (during working hours) to make urgent appointment or go to the Emergency room, if any of the following occurs: i. Vaginal bleeding becomes heavy, more than a period. ii. Incision becomes red and sore, or drains pus. iii. Your TEMPERATURE is over 100.4F or you have chill. iv. IV site becomes red and swollen (a little ``knot?? is usually OK) v. Persistent nausea and vomiting vi. Persistent constipation or diarrhea vii. Rash or allergic reaction to medications. Discharge Attestations HEAD ANIMAL KEEPER Time Spent in Discharge Care*: greater than 30 min Coding Level of Care Code Acute Code for Chg Fwd Diagnoses Term delivered O80
[2023-04-11 10:45] VITALS: BP 132/81; PULSE 61; RESP 15; TEMP 36.6; TEMP 36.7; O2SAT 99
[2023-04-11 11:07] VITALS: BP 132/81; PULSE 61; RESP 15; TEMP 36.7; O2SAT 99
== END 2023-04-11 11:05 | disposition home or self-care (01) | DRG 798 ==
LOC: OPOB 15:15 → OBGYN 15:15
PROVIDERS: Admitting Provider Obstetrics & Gynecology; PCP Registered Nurse; Visit Provider Obstetrics & Gynecology
PROC: 0UB70ZZ Excision of Bilateral Fallopian Tubes, Open Approach (ICD-10-PCS; CPT 58605; principal; 2023-04-10 09:15)
DX: O42.92 Full-term premature rupture of membranes, unspecified as to length of time between rupture and onset of labor (principal); Z37.0 Single live birth; Z3A.38 38 weeks gestation of pregnancy; Z30.2 Encounter for sterilization; O69.81X0 Labor and delivery complicated by cord around neck, without compression, not applicable or unspecified; O99.344 Other mental disorders complicating childbirth; F43.10 Post-traumatic stress disorder, unspecified; F32.A Depression, unspecified
CPT/HCPCS: 36415; 51702; 58605; 59025; 59409; 80306; 83986; 85025; 85027; 86850; 86900; 88302; 90471; 90686; 96374; 96376; 99211; J0290; J0690; J2405; J2590; J2704; J2765; J2795; J3010; J3490; J7120; J7121

== ENCOUNTER 2023-09-02 23:40 | Inpatient (IN) | payer BC, SELFPAY ==
[2023-09-02 23:43] VITALS: BP 125/77; PULSE 67; RESP 18; TEMP 36.4; O2SAT 98; BMI 34.0
--- NOTE | 2023-09-02 23:49 | W.ED.PSYCHS ---
HPI - Psych General: Chief Complaint: Psychiatric Symptoms Stated Complaint: MHE Time Seen by Provider: 09/02/23 23:49 History of Present Illness: 23-year-old female presents to the emergency department with complaints of feeling like she is having difficulty controlling her anger and emotions after getting into an argument with her grandmother. Patient states that she feels very negative about herself and feels very depressed. She states it seems to be worse after the of her child. She states that she feels very hopeless and worthless and has significant difficulty with sleep and continued low energy. She states that her current family situation is very difficult and it is very exhausting to her. She states she has attempted suicide in the past she denies homicidal ideation at present. Associated symptoms: Reports depression Review of Systems General: Reports: 10 or more systems reviewed and unremarkable except in HPI and below Psych: Reports: anxiety, depression, hopelessness, loss of interest and irritability [facility] PFSH: Medical History (Updated 09/10/23 @ 11:28 by Giorgi Rodriguez MD) Mid back pain Depression History of herpes genitalis Posttraumatic stress disorder History of kidney stones Had stone in 08/2015. Seen by Dr. Castro Uro, at that time Degenerative disc disease Diverticulitis Surgical History (Updated 09/02/23 @ 12:17 by ALVIN Dubon) Status post colonoscopy H/O esophagogastroduodenoscopy History of laparoscopic cholecystectomy (09/02/16) Performed by Dr. Perea at [facility] in [place], [place] History of breast biopsy (~05/2019) Left H/O dilation and curettage (~02/2018) Dr. Tong @ [facility] Family History Father CAD (coronary artery disease) Hyperlipidemia Grandfather CAD (coronary artery disease) Mother Hypertension Lung disease Psychiatric illness PTSD, anxiety, depression, and anger problems. Brother Psychiatric illness Sister Psychiatric illness Family/Other Suicide Uncle Hyperlipidemia paternal side Grandmother Colon cancer, Onset Age: 80 paternal Other Cancer Diabetes Denies family history of Ovarian cancer Clotting disorder Breast cancer Anesthesia complication Bleeding disorder Uterine cancer Thyroid disease Stroke Social History Substance/Drug Use: former Date of last use: Marijuana Do you think of yourself as: Straight/Heterosexual Physical Exam Narrative: EXAM NARRATIVE: General: Alert, no acute distress. Skin: Warm, dry, Intact. Head: Normocephalic, atraumatic. Neck: Supple, trachea midline. Eye: Extraocular movements are intact. PERRLA Ears, nose, mouth and throat: mucosa moist. Cardiovascular: Regular, Normal peripheral perfusion. Respiratory: Lungs are clear to auscultation, respirations are non-labored, breath sounds are equal, Symmetrical chest wall expansion. Gastrointestinal: Soft, Nontender, Non distended, Normal bowel sounds. Musculoskeletal: Normal ROM, no deformity. Neurological: Alert and oriented, No focal neurological deficit observed. Psychiatric: Cooperative, depressed, withdrawn, intermittently tearful Course Vital Signs: Vital signs: Vital Signs Temperature 97.9 F 09/06/23 14:53 Pulse Rate 63 09/06/23 14:53 Respiratory Rate 15 09/06/23 14:53 Blood Pressure 126/73 09/06/23 14:53 Pulse Oximetry 96 09/06/23 14:53 Oxygen Delivery Me thod Room Air 09/06/23 06:40 MDM - Psych Medical Decision Making Physical exam completed and documented I will obtain medical psychiatric clearance laboratory evaluation and request admission to the neuropsychiatric unit. Medical Records I reviewed the patient's medical records. Lab Data I reviewed the patient's lab results. 09/03/23 00:08 09/03/23 00:08 Laboratory Results WBC 11.56 10^3/uL (3.29-11.43) H 09/03/23 00:08 RBC 4.74 10^6/uL (3.85-5.65) 09/03/23 00:08 Hgb 14.10 g/dL (11.27-16.99) 09/03/23 00:08 Hct 42.3 % (36-47) 09/03/23 00:08 MCV 89.2 fl (85-98) 09/03/23 00:08 MCH 29.7 pg (27-33) 09/03/23 00:08 MCHC 33.3 g/dL (30-55) 09/03/23 00:08 RDW 16.9 % (12.1-15.1) H 09/03/23 00:08 Plt Count 314 10^3/cmm (157-399) 09/03/23 00:08 MPV 9.6 fL (7.4-10.4) 09/03/23 00:08 Neut % (Auto) 69.3 % 09/03/23 00:08 Lymph % (Auto) 20.0 % 09/03/23 00:08 [place] % (Auto) 8.0 % 09/03/23 00:08 Eos % (Auto) 1.7 % 09/03/23 00:08 Baso % (Auto) 0.7 % 09/03/23 00:08 Neut # (Auto) 8.02 10^3/uL (1.8-7.7) H 09/03/23 00:08 Lymph # (Auto) 2.3 10^3/uL (0.8-4.8) 09/03/23 00:08 [place] # (Auto) 0.9 10^3/uL (0.2-0.9) 09/03/23 00:08 Eos # (Auto) 0.2 10^3/uL (0.0-0.8) 09/03/23 00:08 Baso # (Auto) 0.1 10^3/uL (0.0-0.1) 09/03/23 00:08 Nucleated RBC % (auto) 0 % 09/03/23 00:08 Nucleated RBCs # 0.0 /100WBC 09/03/23 00:08 Sodium 140 mmol/L (136-145) 09/03/23 00:08 Potassium 3.6 mmol/L (3.5-5.1) 09/03/23 00:08 Chloride 105 mmol/L (98-107) 09/03/23 00:08 Carbon Dioxide 23 mmol/L (22-29) 09/03/23 00:08 Anion Gap 15.6 (5-19) 09/03/23 00:08 BUN 10 mg/dL (6-20) 09/03/23 00:08 Creatinine 0.8 mg/dL (0.5-0.9) 09/03/23 00:08 GFR Calculation 87.4 mL/min (90-130) L 09/03/23 00:08 Glucose 80 mg/dL (65-115) 09/03/23 00:08 Calculated Osmolality 288 mOsm/kg (285-295) 09/03/23 00:08 Calcium 9.6 mg/dL (8.5-10.5) 09/03/23 00:08 Total Bilirubin 0.3 mg/dL (0.15-1.2) 09/03/23 00:08 AST 20 U/L (0-32) 09/03/23 00:08 ALT 30 U/L (0-33) 09/03/23 00:08 Alkaline Phosphatase 95 U/L (35-105) 09/03/23 00:08 Total Protein 8.4 g/dL (6.6-8.7) 09/03/23 00:08 Albumin 4.7 g/dL (3.5-5.2) 09/03/23 00:08 Globulin 3.7 g/dL (1.3-4.6) 09/03/23 00:08 Urine Color Colorless (Yellow) 09/02/23 22:56 Urine Appearance Clear (CLEAR) 09/02/23 22:56 Urine pH 6 (5-7) 09/02/23 22:56 Ur Specific [place] 1.010 (1.005-1.030) 09/02/23 22:56 Urine Protein Neg (Negative) 09/02/23 22:56 Urine Glucose (UA) Norm (Normal) 09/02/23 22:56 Urine Ketones Negative (Negative) 09/02/23 22:56 Urine Blood Neg (Negative) 09/02/23 22:56 Urine Nitrate Negative (Negative) 09/02/23 22:56 Urine Bilirubin Neg (Negative) 09/02/23 22:56 Urine Urobilinogen Neg mg/dL (Negative) 09/02/23 22:56 Ur Leukocyte Esterase Negative (Negative) 09/02/23 22:56 Salicylates < 0.3 mg/dL (3-10) L 09/03/23 00:08 Urine Opiates Screen Negative ng/mL (Negative) 09/02/23 22:56 Acetaminophen < 5.0 ug/mL (10-30) L 09/03/23 00:08 Ur Barbiturates Screen Negative ng/mL (Negative) 09/02/23 22:56 Ur Phencyclidine Scrn Negative ng/mL (Negative) 09/02/23 22:56 Ur Amphetamines Screen Negative ng/mL (Negative) 09/02/23 22:56 U Benzodiazepines Scrn Negative ng/mL (Negative) 09/02/23 22:56 Urine Cocaine Screen Negative ng/mL (Negative) 09/02/23 22:56 U Marijuana (THC) Screen Positive ng/mL (Negative) H 09/02/23 22:56 No radiology studies performed this visit Discharge Plan Discharge Patient Disposition: Admitted As Inpatient Admit Provider: Werner Real Clinical Impression: Depression Condition: Stable Discharge Diet: Regular Discharge Activity: Resume usual activity Coding Level of Care Code ED Nozzle Tender for Kacy Ambrosio
[2023-09-03 00:46] LABS: Basophils # 0.1 10^3/uL (0.0-0.1); Basophils % 0.7 %; Eosinophils # 0.2 10^3/uL (0.0-0.8); Eosinophils % 1.7 %; Hematocrit 42.3 % (36-47); Lymphocytes # 2.3 10^3/uL (0.8-4.8); Mean Corpuscular HGB Conc 33.3 g/dL (30-55); Mean Corpuscular Hemoglobin 29.7 pg (27-33); Mean Corpuscular Volume 89.2 fl (85-98); Mean Platelet Volume 9.6 fL (7.4-10.4); Monocytes # 0.9 10^3/uL (0.2-0.9); Neutrophils # 8.02 10^3/uL (1.8-7.7); Neutrophils % 69.3 %; Nucleated Red Blood Cells % 0 %; Platelet Count 314 10^3/cmm (157-399); Red Blood Count 4.74 10^6/uL (3.85-5.65); Red Cell Distribution Width 16.9 % (12.1-15.1); White Blood Count 11.56 10^3/uL (3.29-11.43)
[2023-09-03 01:01] LABS: Alanine Aminotransferase 30 U/L (0-33); Albumin Level 4.7 g/dL (3.5-5.2); Alkaline Phosphatase 95 U/L (35-105); Anion Gap 15.6 (5-19); Aspartate Amino Transferase 20 U/L (0-32); Blood Urea Nitrogen 10 mg/dL (6-20); Calcium 9.6 mg/dL (8.5-10.5); Carbon Dioxide 23 mmol/L (22-29); Chloride 105 mmol/L (98-107); Creatinine Clr Calc Pharmacy 104.0949; Globulin 3.7 g/dL (1.3-4.6); Glomerular Filtration Rate 87.4 mL/min (90-130); Glucose 80 mg/dL (65-115); Osmolality Calculated 288 mOsm/kg (285-295); Potassium 3.6 mmol/L (3.5-5.1); Sodium 140 mmol/L (136-145); Total Bilirubin 0.3 mg/dL (0.15-1.2); Total Protein 8.4 g/dL (6.6-8.7)
[2023-09-03 01:03] LABS: Add Urine Microscopic? NO; Charge for UA Resulting for Rev
[2023-09-03 01:04] LABS: Bilirubin Urine Neg (Negative); Blood Urine Neg (Negative); Glucose Urine UA Norm (Normal); Ketones Urine Negative (Negative); Leukocyte Esterase Urine Negative (Negative); Nitrate Urine Negative (Negative); Protein Urine Neg (Negative); Urine Appearance Clear (CLEAR); Urine Color Colorless (Yellow); Urobilinogen Urine Neg (Negative); pH Urine 6 (5-7)
[2023-09-03 01:14] LABS: Acetaminophen < 5.0 ug/mL (10-30); Salicylate < 0.3 mg/dL (3-10)
[2023-09-03 01:14] LABS: Amphetamines Screen Urine Negative (Negative); Barbiturates Screen Urine Negative (Negative); Benzodiazepines Screen Urine Negative (Negative); Cocaine Screen Urine Negative (Negative); Opiate Screen Urine Negative (Negative); PCP Screen Urine Negative (Negative); THC Screen Urine Positive (Negative)
[2023-09-03 02:08] VITALS: BP 110/75; PULSE 59; RESP 17; TEMP 36.6; O2SAT 98
[2023-09-03 06:00] VITALS: BP 104/58; PULSE 51; RESP 16; O2SAT 95
[2023-09-03] MEDS: gabapentin 100 mg Capsule PO ×3 (08:35→20:50)
[2023-09-03] MEDS: acetaminophen 325 mg Tablet 650 MG PO (08:45)
[2023-09-03] MEDS: nicotine 21 mg Patch 1 PATCH TRANSDERMA (08:45)
[2023-09-03] MEDS: ipratropium-albuterol 3 mL Neb 2.5 ML INHALATION (10:03)
[2023-09-03 10:07] VITALS: PULSE 69; RESP 18; O2SAT 96
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
[2023-09-03 14:00] VITALS: BP 116/77; PULSE 85; RESP 20; TEMP 36.8; O2SAT 95
[2023-09-03] MEDS: hyDROXYzine 25 mg Capsule 50 MG PO (18:44)
[2023-09-03 19:52] VITALS: BP 143/80; PULSE 70; RESP 17; TEMP 36.7; O2SAT 98
[2023-09-03] MEDS: trazodone 50 mg Tablet 100 MG PO (20:50)
[2023-09-04 05:10] VITALS: PULSE 89; RESP 22; O2SAT 93
[2023-09-04] MEDS: ipratropium-albuterol 3 mL Neb 2.5 ML INHALATION ×2 (05:10→12:48)
[2023-09-04 05:22] VITALS: PULSE 77; O2SAT 98
[2023-09-04] MEDS: hyDROXYzine 25 mg Capsule 50 MG PO ×2 (05:24→17:56)
[2023-09-04 06:00] VITALS: BP 125/80; PULSE 64; RESP 18; TEMP 36.3; O2SAT 95
--- NOTE | 2023-09-04 08:12 | P.NPUPN_ITS ---
Subjective NPU 2 Subjective: Patient presented today reporting that she is feeling okay. She denied any problems with the initiation of the Abilify reporting that she feels like she is less stressed and overwhelmed. She reports feeling like she is a little tired but she thinks that is just not taking care of her kids and when that happens that she has a break if like her body tries to do all the catching up that he can. She denied any side effects of the medication and reports being hopeful that this is a short stay. Mental Status Exam 2 MSE Comments: This is an obese white female in hospital scrubs with limited grooming and adequate eye contact. No abnormal movements except for psychomotor retardation. Significant tattooing on her exposed skin including her neck. Cooperative with exam in mild distress. Speech was slightly decreased rate and volume. Mood described as a little better, affect is congruent.? Thought process: linear and logical.?Thought content: patient denies current suicidal or homicidal ideation, there were no delusions reported or noted, she denied current auditory or visual hallucinations. Patient reports constant thoughts of self-harm but has not acted on them. She experiences feelings of helplessness, hopelessness, and worthlessness, along with sleep problems and low energy. She also experiences anxiety and panic attacks, describing them as feeling like being electrocuted. She has had hallucinations in the past. She also exhibits symptoms of OCD, such as counting how many times she chews on one side of her mouth and the other. Attention and concentration are intact and memory appears mostly reliable but none were formally tested. She is alert and oriented times 3. ? Insight and judgment limited. Impulse control is limited. Vitals/I&O/Wt Last Vital Signs Temp 97.4 F L 09/04/23 06:00 Pulse 64 09/04/23 06:00 Resp 18 09/04/23 06:00 BP 125/80 09/04/23 06:00 Pulse Ox 95 09/04/23 06:00 O2 Del Method Room Air 09/04/23 06:00 Weight last 48 hrs Weight 81.647 kg Data NPU 09/03/23 00:08 09/03/23 00:08 A&P Assessment and plan (1) Posttraumatic stress disorder: (2) Borderline personality disorder: (3) Major depressive disorder, recurrent, moderate: (4) Generalized anxiety disorder: (5) Cannabis use disorder, severe, dependence: (6) History of methamphetamine use: Plan This is a 23-year-old white female with a long history of psychiatric illness and addiction going back to childhood with reports of significant trauma and PTSD symptoms who presents presents with a complex history of trauma, substance use, and mental health issues, including PTSD, BPD, depression, anxiety, and possible OCD. She is currently experiencing a high level of distress and is seeking help to manage her symptoms. 1.? ?Encourage individual ,milieu, and group therapy 2. ? We will attempt to gather collateral information. 3. ? TO-15 minute checks on the unit. 4.? Recommend sober living treatment at the highest level of care to which the patient is willing to commit. 5. Continue current medication except restarted Abilify at 5 mg p.o. daily. Involuntary Hold Information 2 96 Hour Hold: 96 Hour Involuntary Admission: No Attestations NPU 2 Medical Necessity Statement*: Inpatient hospitalization is medically necessary and the clinically appropriate intervention at this time. We will monitor/initiate medications and make changes as indicated. Likely length of stay is 2-4 days. Coding Level of Care Code Acute Code for g Fwd Diagnoses Posttraumatic stress disorder F43.10 Borderline personality disorder F60.3 Major depressive disorder, recurrent, moderate F33.1 Generalized anxiety disorder F41.1 Cannabis use disorder, severe, dependence F12.20 History of methamphetamine use F15.91
[2023-09-04] MEDS: gabapentin 100 mg Capsule PO ×3 (08:22→20:26)
[2023-09-04] MEDS: nicotine 21 mg Patch 1 PATCH TRANSDERMA (08:22)
[2023-09-04] MEDS: ARIPiprazole 10 mg Tablet 5 MG PO (08:23)
--- NOTE | 2023-09-04 08:58 | PC.NURSE ---
During morning assessment, patient stated that today is going to be a good day for herself, stating that she is excited about getting restarted on Abilify. Patient said she was going to draw some tattoos today.
[2023-09-04] MEDS: ibuprofen 600 mg Tablet PO (09:17)
[2023-09-04 11:00] VITALS: PULSE 86; RESP 16; O2SAT 97
[2023-09-04] MEDS: diphenhydrAMINE 50 mg Capsule PO (13:09)
[2023-09-04 14:00] VITALS: BP 110/72; PULSE 87; RESP 20; TEMP 36.8; O2SAT 98
[2023-09-04 16:35] LABS: HCG Qualitative Urine. Negative (Negative)
--- NOTE | 2023-09-04 17:57 | PC.NURSE ---
Patient anxious, reports anxiety 6-11/23. Administered Vistaril 50mg PO to patient. Patient is now going to shower in hopes of alleviating some anxiety.
[2023-09-04] MEDS: OLANZapine 5 mg ODT PO (18:19)
--- NOTE | 2023-09-04 18:20 | PC.NURSE ---
After her shower, patient appears ansy, agitated. Patient states that it feels as though her skin is crawling, that sometimes this happens if she comes in contact with certain textures, such as wool. Patient wringing her hands. This nurse administered zyprexa 5mg ODT to patient. Will continue to monitor patient.
[2023-09-04 19:34] VITALS: BP 120/84; PULSE 76; RESP 18; TEMP 36.7; O2SAT 97
[2023-09-04] MEDS: trazodone 50 mg Tablet 100 MG PO (20:27)
[2023-09-04] MEDS: acetaminophen 325 mg Tablet 650 MG PO (20:27)
[2023-09-05 06:00] VITALS: BP 119/78; PULSE 69; RESP 16; O2SAT 96
[2023-09-05 08:28] VITALS: PULSE 66; RESP 16; O2SAT 96
[2023-09-05] MEDS: albuterol 2.5 mg/3 mL Neb INHALATION (08:28)
[2023-09-05 08:33] VITALS: PULSE 71
[2023-09-05] MEDS: ARIPiprazole 10 mg Tablet 5 MG PO (08:35)
[2023-09-05] MEDS: gabapentin 100 mg Capsule PO ×3 (08:35→20:34)
[2023-09-05] MEDS: nicotine 21 mg Patch 1 PATCH TRANSDERMA (08:35)
[2023-09-05] MEDS: cetirizine 10 mg Tablet PO (10:19)
[2023-09-05] MEDS: ibuprofen 600 mg Tablet PO (10:51)
--- NOTE | 2023-09-05 11:05 | W.PM.NPUPNS ---
Subjective NPU Subjective: Patient presented today reporting that she is getting a little better each day. She had a rough morning where she was having some breathing issues and got a breathing treatment. She had significant somatic complaints today per staff and direct observation. She was very focused on having back pain and needing something for back pain. Staff report her walking and moving with significant stress reportedly secondary to this pain that she identifies as likely due to the lack of quality of the unit beds. She requested something to help with management of that pain. Otherwise she denied side effects to the other medications and endorsed being hopeful that she could return to her family tomorrow. Mental Status Exam MSE Comments: This is an obese white female in hospital scrubs with limited grooming and adequate eye contact. No abnormal movements except for psychomotor retardation and a seemingly performance limp reportedly secondary to her intense back pain. Significant tattooing on her exposed skin including her neck. Cooperative with exam in mild distress. Speech was slightly decreased rate and volume. Mood described as a little better, affect is congruent.? Thought process: linear and logical.?Thought content: patient denies current suicidal or homicidal ideation, there were no delusions reported or noted, she denied current auditory or visual hallucinations. Patient reports constant thoughts of self-harm but has not acted on them. She experiences feelings of helplessness, hopelessness, and worthlessness, along with sleep problems and low energy. She also experiences anxiety and panic attacks, describing them as feeling like being electrocuted. She has had hallucinations in the past. She also exhibits symptoms of OCD, such as counting how many times she chews on one side of her mouth and the other. Attention and concentration are intact and memory appears mostly reliable but none were formally tested. She is alert and oriented times 3. ? Insight and judgment limited. Impulse control is limited. Vitals/I&O/Wt Last Vital Signs Temp 98.1 F 09/04/23 19:34 Pulse 71 09/05/23 08:33 Resp 16 09/05/23 08:28 BP 119/78 09/05/23 06:00 Pulse Ox 96 09/05/23 08:28 O2 Del Method Room Air 09/05/23 08:28 Weight last 48 hrs Weight 83.971 kg Data NPU 09/03/23 00:08 09/03/23 00:08 A&P Assessment and plan (1) Posttraumatic stress disorder: (2) Borderline personality disorder: (3) Major depressive disorder, recurrent, moderate: (4) Generalized anxiety disorder: (5) Cannabis use disorder, severe, dependence: (6) History of methamphetamine use: Plan This is a 23-year-old white female with a long history of psychiatric illness and addiction going back to childhood with reports of significant trauma and PTSD symptoms who presents presents with a complex history of trauma, substance use, and mental health issues, including PTSD, BPD, depression, anxiety, and possible OCD. She is currently experiencing a high level of distress and is seeking help to manage her symptoms. 1.? ?Encourage individual ,milieu, and group therapy 2. ? We will attempt to gather collateral information. 3. ? TO-15 minute checks on the unit. 4.? Recommend sober living treatment at the highest level of care to which the patient is willing to commit. 5. Continue current medication except restarted Abilify at 5 mg p.o. daily. Involuntary Hold Information 96 Hour Hold: 96 Hour Involuntary Admission: No Attestations NPU Medical Necessity Statement*: Inpatient hospitalization is medically necessary and the clinically appropriate intervention at this time. We will monitor/initiate medications and make changes as indicated. Likely length of stay is 1-3 days. Coding Level of Care Code Acute Code for [facility] Fwd Diagnoses Posttraumatic stress disorder F43.10 Borderline personality disorder F60.3 Major depressive disorder, recurrent, moderate F33.1 Generalized anxiety disorder F41.1 Cannabis use disorder, severe, dependence F12.20 History of methamphetamine use F15.91
[2023-09-05] MEDS: acetaminophen 325 mg Tablet 650 MG PO (11:38)
[2023-09-05 14:00] VITALS: BP 110/68; PULSE 82; RESP 20; TEMP 36.8; O2SAT 97
--- NOTE | 2023-09-05 15:53 | PC.NURSE ---
Patient tearful, visibly anxious. This nurse administered zyprexa 5mg ODT to patient. After about 15 minutes, patient appeared less distraught and stated that the medication helped a little bit.
[2023-09-05] MEDS: nicotine 4 mg lozenge MUCOUS MEM (16:22)
--- NOTE | 2023-09-05 16:22 | PC.NURSE ---
Patient's nicotine patch fell off of her body during shower at approximately 1400.
[2023-09-05] MEDS: TRAMadol 50 mg Tablet PO (17:28)
[2023-09-05] MEDS: nicotine 2 mg Gum BUCCAL (19:52)
[2023-09-05 19:55] VITALS: BP 116/72; PULSE 62; RESP 17; TEMP 36.5; O2SAT 98
[2023-09-05] MEDS: trazodone 50 mg Tablet 100 MG PO (20:36)
[2023-09-06 06:00] VITALS: BP 114/79; PULSE 73; RESP 16; TEMP 36.6; O2SAT 98
[2023-09-06 06:40] VITALS: PULSE 67; RESP 18; O2SAT 98
[2023-09-06] MEDS: ipratropium-albuterol 3 mL Neb 2.5 ML INHALATION (06:40)
[2023-09-06 06:50] VITALS: PULSE 70
[2023-09-06] MEDS: gabapentin 100 mg Capsule PO ×2 (08:37→14:10)
[2023-09-06] MEDS: ARIPiprazole 10 mg Tablet 5 MG PO (08:37)
[2023-09-06] MEDS: cetirizine 10 mg Tablet PO (08:38)
[2023-09-06] MEDS: nicotine 21 mg Patch 1 PATCH TRANSDERMA (08:39)
[2023-09-06 14:00] VITALS: BP 126/73; PULSE 63; RESP 15; TEMP 36.6; O2SAT 96
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
[2023-09-06 14:53] VITALS: BP 126/73; PULSE 63; RESP 15; TEMP 36.6; O2SAT 96
[2023-09-06] MEDS: acetaminophen 325 mg Tablet 650 MG PO (15:27)
== END 2023-09-06 16:47 | disposition home or self-care (01) | DRG 885 ==
LOC: ER 09-03 00:12 → NP 09-03 01:33
PROVIDERS: Admitting Provider Psychiatry & Neurology Psychiatry; Emergency Provider Internal Medicine; PCP Registered Nurse; Visit Provider Psychiatry & Neurology Psychiatry
DX: F33.1 Major depressive disorder, recurrent, moderate (principal); F43.12 Post-traumatic stress disorder, chronic; F60.3 Borderline personality disorder; F41.1 Generalized anxiety disorder; F12.20 Cannabis dependence, uncomplicated; F15.11 Other stimulant abuse, in remission; Z62.810 Personal history of physical and sexual abuse in childhood; Z91.52 Personal history of nonsuicidal self-harm; Z91.51 Personal history of suicidal behavior; Z72.0 Tobacco use
CPT/HCPCS: 80053; 80306; 80307; 81003; 81025; 85025; 94640; 97150; 97165; 99285; J7613; J9999; Q0163

== ENCOUNTER → 2023-12-14 14:53 | Outpatient (BNVA) | payer BC, MEDICAID, SELFPAY | PROVIDERS: PCP Registered Nurse; Visit Provider Nurse Practitioner | DX: R50.9 Fever, unspecified (principal) | CPT/HCPCS: 87400 ==

== ENCOUNTER 2024-02-20 00:06 | Emergency (ER) | payer BC, MEDICAID, SELFPAY ==
[2024-02-20 00:19] VITALS: BP 127/89; PULSE 69; RESP 16; TEMP 36.8; O2SAT 97; BMI 34.2
--- NOTE | 2024-02-20 00:26 | XRR_ITS ---
PROCEDURE INFORMATION: Exam: XR Left Knee Exam date and time: 02/20/2024 12:30 AM Age: 24 years old Clinical indication: Injury or trauma; Blunt trauma; Patient HX: C/O left knee pain after fall last night; Additional info: Fall L knee pain TECHNIQUE: Imaging protocol: Radiologic exam of the left knee. Views: 3 views. COMPARISON: CR XR foot LT min 3V* [id number] 10/22/2017 3:01 PM FINDINGS: Bones/joints: No acute fracture or dislocation. Soft tissues: Unremarkable. XR/XR knee LT 3V* [id number] IMPRESSION: No acute bony findings.
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
[2024-02-20 02:18] VITALS: RESP 18
[2024-02-20] MEDS: oxyCODONE-APAP 5-325 mg Tablet 2 TAB PO (02:18)
[2024-02-20 02:33] VITALS: BP 127/61; PULSE 65; O2SAT 98
== END 2024-02-20 02:05 | disposition home or self-care (01) ==
PROVIDERS: Emergency Provider Emergency Medicine; PCP Registered Nurse
DX: S83.92XA Sprain of unspecified site of left knee, initial encounter (principal); Z72.0 Tobacco use; X50.9XXA Other and unspecified overexertion or strenuous movements or postures, initial encounter
CPT/HCPCS: 29530; 73562; 99283; E0114

== ENCOUNTER → 2024-02-29 09:18 | Outpatient (BNVA) | payer BC, MEDICAID, SELFPAY | PROVIDERS: PCP Registered Nurse; Visit Provider Nurse Practitioner | DX: S83.207A Unspecified tear of unspecified meniscus, current injury, left knee, initial encounter; M23.52 Chronic instability of knee, left knee; W19.XXXA Unspecified fall, initial encounter | CPT/HCPCS: 73560; 73565 ==

== ENCOUNTER 2024-03-02 03:37 | Inpatient (IN) | payer BC, MEDICAID, SELFPAY ==
[2024-03-02] VITALS (8 sets, daily range): BP systolic 105–129; BP diastolic 63–83; PULSE 57–88; RESP 18; TEMP 36.7–37.1; O2SAT 93–98; BMI 34.2
--- NOTE | 2024-03-02 03:42 | ECG_ITS ---
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
--- NOTE | 2024-03-02 03:55 | ED.C_ITS ---
HPI - Psych 2 General: Chief Complaint: Psychiatric Symptoms Stated Complaint: hearing things Time Seen by Provider: 03/02/24 03:40 History of Present Illness: 24-year-old female with a history of PTS D, borderline personality disorder and apparently schizophrenia who presents emergency room with hallucinations by ambulance. She says she is wanting to bash her head and to make the voices stop. She denies specific suicidal thoughts. No homicidal thoughts. Related Data Previous Rx's Medication Instructions Recorded aripiprazole 5 mg tablet 5 mg PO DAILY 30 days #30 tabs 11/05/23 gabapentin 100 mg capsule 100 mg PO BID 30 days #60 caps 11/05/23 trazodone 100 mg tablet 300 mg (3 x 100 mg) PO BEDTIME 11/05/23 sleep 30 days #90 tabs ondansetron 8 mg disintegrating 8 mg PO Q8H PRN nausea and 12/14/23 tablet vomiting #10 tabs cetirizine 10 mg tablet 10 mg PO DAILY 30 days #30 tabs 02/08/24 fluticasone propionate 50 2 spray intranasal DAILY #16 grams 02/08/24 mcg/actuation nasal spray,suspension (Flonase Allergy Relief) prednisone 20 mg tablet 20 mg PO BID 5 days #10 tabs 02/14/24 ketorolac 10 mg tablet 10 mg PO TID PRN pain #10 tabs 02/20/24 diclofenac potassium 50 mg tablet 50 mg PO TID 30 days #90 tabs 02/29/24 diclofenac sodium 50 mg 50 mg PO TID PRN pain #90 tabs 02/29/24 tablet,delayed release hydrocodone 7.5 mg-acetaminophen 1 tab PO Q8H PRN pain 7 days #15 02/29/24 325 mg tablet tabs Allergies Allergy/AdvReac Type Severity Reaction Status Date / Time fluoxetine [From Prozac] Allergy Severe ADR-Halluci Verified 03/02/24 03:49 nating grass pollen Allergy Intermediate ALGY-Nasal Verified 03/02/24 03:49 Discharge ketchup Allergy Intermediate ADR-Gastrointestinal Verified 03/02/24 03:49 Upset gluten Allergy Unknown ADR-Abdominal Verified 03/02/24 03:49 Pain antipsychotics Allergy Unknown ADR-Halluci Uncoded 03/02/24 03:49 nating Review of Systems 2 Narrative: Constitutional symptoms: Negative except as documented in HPI. Skin symptoms: Negative except as documented in HPI. Eye symptoms: Negative except as documented in HPI. ENMT symptoms: Negative except as documented in HPI. Respiratory symptoms: Negative except as documented in HPI. Cardiovascular symptoms: Negative except as documented in HPI. Gastrointestinal symptoms: Negative except as documented in HPI. Genitourinary symptoms: Negative except as documented in HPI. Musculoskeletal symptoms: Negative except as documented in HPI. Neurologic symptoms: Negative except as documented in HPI. Psychiatric symptoms: Negative except as documented in HPI. Endocrine symptoms: Negative except as documented in HPI. PFSH ED 2 PFSH: Medical History Psychiatric care Mid back pain Depression History of herpes genitalis Posttraumatic stress disorder History of kidney stones Had stone in 08/2015. Seen by Edilma Pena, at that time Degenerative disc disease Diverticulitis Surgical History Status post colonoscopy H/O esophagogastroduodenoscopy History of laparoscopic cholecystectomy (09/02/16) Performed by Dr. Perea at [facility] in [place], [place] History of breast biopsy (~05/2019) Left H/O dilation and curettage (~02/2018) Dr. Tong @ [facility] Family History Father CAD (coronary artery disease) Hyperlipidemia Grandfather CAD (coronary artery disease) Mother Hypertension Lung disease Psychiatric illness PTSD, anxiety, depression, and anger problems. Brother Psychiatric illness Sister Psychiatric illness Family/Other Suicide Uncle Hyperlipidemia paternal side Grandmother Colon cancer, Onset Age: 80 paternal Other Cancer Diabetes Denies family history of Ovarian cancer Clotting disorder Breast cancer Anesthesia complication Bleeding disorder Uterine cancer Thyroid disease Stroke Social History Smoking and tobacco/nicotine status: current every day tobacco/nicotine user Substance/Drug Use: former Date of last use: Marijuana Do you think of yourself as: Straight/Heterosexual Female Reproductive History: Date of last menstrual period: 02/15/24 Physical Exam 2 Narrative: EXAM NARRATIVE: General: Alert, no acute distress. Skin: Warm, dry. Head: Normocephalic, atraumatic. Neck: Supple, trachea midline. Eye: Extraocular movements are intact. Ears, nose, mouth and throat: mucosa moist. Cardiovascular: Regular, Normal peripheral perfusion. Respiratory: Lungs are clear to auscultation, respirations are non-labored, breath sounds are equal, Symmetrical chest wall expansion. Gastrointestinal: Soft, Nontender, Non distended Musculoskeletal: Normal ROM, no deformity. Neurological: Alert and oriented, No focal neurological deficit observed. Psychiatric: Cooperative, depressed affect, reports she wants to bash her head in. Reports hallucinations Course 2 Vital Signs: Vital signs: Vital Signs Temperature 98.5 F 03/02/24 03:39 Pulse Rate 63 03/02/24 03:49 Respiratory Rate 18 03/02/24 03:39 Blood Pressure 113/64 03/02/24 03:49 Pulse Oximetry 93 03/02/24 03:49 Oxygen Delivery Me thod Room Air 03/02/24 03:49 MDM - Psych Medical Decision Making Medical decision making: Differential diagnosis for patient with reported psychosis with plan for psychiatric admission including but not limited to and based on the above HPI, review of systems and physical exam: concerns for infection, alcohol intoxication, cardiac issues or other medical problems prior to psychiatric admission. Orders placed to evaluate differential diagnosis based on the above differential, HPI and physical exam labwork, ekg ordered to evaluate the pathologies and to clear the patient medically prior to psychiatric admission EKG: Time 3:57 AM. Rate 69. Normal sinus rhythm, No ST-T changes, no ectopy, normal ME & QRS intervals, This was reviewed and interpreted by myself the ER physician at 4:01 AM Lab Review: Laboratory results were reviewed and interpreted by myself the emergency room physician. - Medically cleared. - EKG shows no ischemic changes. - Blood alcohol level is 111, - Salicylate and Tylenol are negative - Drug screen is positive for marijuana - No signs of infection, urinalysis clear and white count is not elevated - No anemia. - BUN and creatinine are within normal limits. I reviewed the patient's medical record. Reexamination: Patient remained stable Consultation: I spoke with Dr. Real who is on-call for 6 psychiatry and he agrees to admission. Assessment and plan: Hallucinations Alcohol intoxication -Admission to neuropsychiatric unit for continued evaluation and treatment. - All lab work was reviewed and interpreted personally by myself, the ER physician - Evaluation and treatment of this problem were appropriate in the emergency setting Lab Data 03/02/24 03:56 03/02/24 03:56 Laboratory Results WBC 9.71 10^3/uL (3.29-11.43) 03/02/24 03:56 RBC 4.47 10^6/uL (3.85-5.65) 03/02/24 03:56 Hgb 14.20 g/dL (11.27-16.99) 03/02/24 03:56 Hct 42.9 % (36-47) 03/02/24 03:56 MCV 96.0 fl (85-98) 03/02/24 03:56 MCH 31.8 pg (27-33) 03/02/24 03:56 MCHC 33.1 g/dL (30-55) 03/02/24 03:56 RDW 14.2 % (12.1-15.1) 03/02/24 03:56 Plt Count 312 10^3/cmm (157-399) 03/02/24 03:56 MPV 9.1 fL (7.4-10.4) 03/02/24 03:56 Neut % (Auto) 62.1 % 03/02/24 03:56 Lymph % (Auto) 27.8 % 03/02/24 03:56 Blount % (Auto) 7.5 % 03/02/24 03:56 Eos % (Auto) 1.8 % 03/02/24 03:56 Baso % (Auto) 0.6 % 03/02/24 03:56 Neut # (Auto) 6.03 10^3/uL (1.8-7.7) 03/02/24 03:56 Lymph # (Auto) 2.7 10^3/uL (0.8-4.8) 03/02/24 03:56 Blount # (Auto) 0.7 10^3/uL (0.2-0.9) 03/02/24 03:56 Eos # (Auto) 0.2 10^3/uL (0.0-0.8) 03/02/24 03:56 Baso # (Auto) 0.1 10^3/uL (0.0-0.1) 03/02/24 03:56 Nucleated RBC % (auto) 0 % 03/02/24 03:56 Nucleated RBCs # 0.0 /100WBC 03/02/24 03:56 Sodium 139 mmol/L (136-145) 03/02/24 03:56 Potassium 3.6 mmol/L (3.5-5.1) 03/02/24 03:56 Chloride 107 mmol/L (98-107) 03/02/24 03:56 Carbon Dioxide 20 mmol/L (22-29) L 03/02/24 03:56 Anion Gap 15.6 (5-19) 03/02/24 03:56 BUN 7 mg/dL (6-20) 03/02/24 03:56 Creatinine 0.7 mg/dL (0.5-0.9) 03/02/24 03:56 GFR Calculation 101.1 mL/min (90-130) 03/02/24 03:56 Glucose 94 mg/dL (65-115) 03/02/24 03:56 Calculated Osmolality 286 mOsm/kg (285-295) 03/02/24 03:56 Calcium 8.8 mg/dL (8.5-10.5) 03/02/24 03:56 Total Bilirubin 0.2 mg/dL (0.15-1.2) 03/02/24 03:56 AST 15 U/L (0-32) 03/02/24 03:56 ALT 14 U/L (0-33) 03/02/24 03:56 Alkaline Phosphatase 80 U/L (35-105) 03/02/24 03:56 Total Protein 7.7 g/dL (6.6-8.7) 03/02/24 03:56 Albumin 4.6 g/dL (3.5-5.2) 03/02/24 03:56 Globulin 3.1 g/dL (1.3-4.6) 03/02/24 03:56 TSH 1.91 uIU/mL (0.27-4.20) 03/02/24 03:56 HCG, Qual Negative (Negative) 03/02/24 03:56 Urine Color Yellow (Yellow) 03/02/24 03:45 Urine Appearance Clear (CLEAR) 03/02/24 03:45 Urine pH 6.0 (5-7) 03/02/24 03:45 Ur Specific Hartley 1.007 (1.005-1.030) 03/02/24 03:45 Urine Protein Negative (Negative) 03/02/24 03:45 Urine Glucose (UA) Negative (Normal) 03/02/24 03:45 Urine Ketones Negative (Negative) 03/02/24 03:45 Urine Blood Negative (Negative) 03/02/24 03:45 Urine Nitrate Negative (Negative) 03/02/24 03:45 Urine Bilirubin Negative (Negative) 03/02/24 03:45 Urine Urobilinogen 1.0 mg/dL (Negative) 03/02/24 03:45 Ur Leukocyte Esterase Trace (Negative) A 03/02/24 03:45 Urine RBC 0-2 /hpf (0-2) 03/02/24 03:45 Urine WBC 0-5 /hpf (0-5) 03/02/24 03:45 Ur Squamous Epith Cells 0-5 /hpf (0-5) 03/02/24 03:45 Amorphous Sediment Not Reportable 03/02/24 03:45 Urine Bacteria None seen /hpf (NONE) 03/02/24 03:45 Hyaline Casts 0-4 /lpf H 03/02/24 03:45 Salicylates < 0.3 mg/dL (3-10) L 03/02/24 03:56 Urine Opiates Screen Negative ng/mL (Negative) 03/02/24 03:45 Acetaminophen < 5.0 ug/mL (10-30) L 03/02/24 03:56 Ur Barbiturates Screen Negative ng/mL (Negative) 03/02/24 03:45 Ur Phencyclidine Scrn Negative ng/mL (Negative) 03/02/24 03:45 Ur Amphetamines Screen Negative ng/mL (Negative) 03/02/24 03:45 U Benzodiazepines Scrn Negative ng/mL (Negative) 03/02/24 03:45 Urine Cocaine Screen Negative ng/mL (Negative) 03/02/24 03:45 U Marijuana (THC) Screen Positive ng/mL (Negative) H 03/02/24 03:45 Ethyl Alcohol 111 mg/dL (0-10) H 03/02/24 03:56 No radiology studies performed this visit Discharge Plan Discharge Patient Disposition: Admitted As Inpatient Clinical Impression: Auditory hallucination Condition: Stable Coding Level of Care Code ED Child Watch Attendant for Kacy Ambrosio
[2024-03-02 04:04] LABS: Basophils # 0.1 10^3/uL (0.0-0.1); Basophils % 0.6 %; Eosinophils # 0.2 10^3/uL (0.0-0.8); Eosinophils % 1.8 %; Hematocrit 42.9 % (36-47); Lymphocytes # 2.7 10^3/uL (0.8-4.8); Lymphocytes % 27.8 %; Mean Corpuscular HGB Conc 33.1 g/dL (30-55); Mean Corpuscular Hemoglobin 31.8 pg (27-33); Mean Platelet Volume 9.1 fL (7.4-10.4); Monocytes # 0.7 10^3/uL (0.2-0.9); Monocytes % 7.5 %; Neutrophils # 6.03 10^3/uL (1.8-7.7); Neutrophils % 62.1 %; Nucleated Red Blood Cells % 0 %; Platelet Count 312 10^3/cmm (157-399); Red Blood Count 4.47 10^6/uL (3.85-5.65); Red Cell Distribution Width 14.2 % (12.1-15.1); White Blood Count 9.71 10^3/uL (3.29-11.43)
[2024-03-02 04:07] LABS: Bilirubin Urine Negative (Negative); Blood Urine Negative (Negative); Glucose Urine UA Negative (Normal); Ketones Urine Negative (Negative); Leukocyte Esterase Urine Trace (Negative); Nitrate Urine Negative (Negative); Protein Urine Negative (Negative); Specific Gravity, Urine 1.007 (1.005-1.030); Urine Appearance Clear (CLEAR); Urine Color Yellow (Yellow)
[2024-03-02 04:12] LABS: Bacteria Urine None Seen /hpf; Hyaline Casts Urine 0-4 /lpf; RBC Urine 0-2 /hpf (0-2); Squamous Epithelial Cell Urine 0-5 /hpf (0-5); WBC Urine 0-5 /hpf (0-5)
[2024-03-02 04:14] LABS: Amphetamines Screen Urine Negative (Negative); Barbiturates Screen Urine Negative (Negative); Benzodiazepines Screen Urine Negative (Negative); Cocaine Screen Urine Negative (Negative); Opiate Screen Urine Negative (Negative); PCP Screen Urine Negative (Negative); THC Screen Urine Positive (Negative)
[2024-03-02 04:15] LABS: HCG, Serum Qual Negative (Negative)
[2024-03-02 04:29] LABS: Alanine Aminotransferase 14 U/L (0-33); Albumin Level 4.6 g/dL (3.5-5.2); Alcohol Level 111 mg/dL (0-10); Alkaline Phosphatase 80 U/L (35-105); Anion Gap 15.6 (5-19); Aspartate Amino Transferase 15 U/L (0-32); Blood Urea Nitrogen 7 mg/dL (6-20); Calcium 8.8 mg/dL (8.5-10.5); Carbon Dioxide 20 mmol/L (22-29); Chloride 107 mmol/L (98-107); Creatinine Clr Calc Pharmacy 113.5337; Globulin 3.1 g/dL (1.3-4.6); Glomerular Filtration Rate 101.1 mL/min (90-130); Glucose 94 mg/dL (65-115); Osmolality Calculated 286 mOsm/kg (285-295); Potassium 3.6 mmol/L (3.5-5.1); Sodium 139 mmol/L (136-145); Total Bilirubin 0.2 mg/dL (0.15-1.2); Total Protein 7.7 g/dL (6.6-8.7)
[2024-03-02 04:30] LABS: Acetaminophen < 5.0 ug/mL (10-30); Salicylate < 0.3 mg/dL (3-10)
[2024-03-02 04:35] LABS: Thyroid Stimulating Hormone 1.91 uIU/mL (0.27-4.20)
--- NOTE | 2024-03-02 06:22 | PC.NURSE ---
96 Hour Involuntary Hold Patient Rights have been read to the patient and a copy of the same has been given to her. Vat Packer Gianfranco was present at bedside at the time of presentation of Rights.
[2024-03-02] MEDS: acetaminophen 325 mg Tablet 650 MG PO (06:59)
[2024-03-02] MEDS: nicotine 2 mg Gum BUCCAL (07:06)
[2024-03-02] MEDS: folic acid 1 mg Tablet PO (08:35)
[2024-03-02] MEDS: nicotine 21 mg Patch 1 PATCH TRANSDERMA (08:35)
[2024-03-02] MEDS: multivitamin therapeutic Tablet 1 TAB PO (08:35)
[2024-03-02] MEDS: thiamine 100 mg Tablet PO (08:35)
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
[2024-03-02] MEDS: LORazepam 2 mg Tablet PO (19:42)
[2024-03-02] MEDS: trazodone 100 mg Tablet 300 MG PO (20:22)
[2024-03-03] VITALS: BP 110/76; PULSE 80; RESP 16; O2SAT 98
[2024-03-03 04:00] VITALS: BP 117/62; PULSE 82; RESP 18; TEMP 36.8; O2SAT 96
[2024-03-03] MEDS: cetirizine 10 mg Tablet PO (08:19)
[2024-03-03] MEDS: folic acid 1 mg Tablet PO (08:19)
[2024-03-03] MEDS: thiamine 100 mg Tablet PO (08:19)
[2024-03-03] MEDS: multivitamin therapeutic Tablet 1 TAB PO (08:19)
[2024-03-03] MEDS: fluticasone nasal spray 16gm Btl 2 SPRAY INTRANASAL (08:19)
[2024-03-03] MEDS: nicotine 21 mg Patch 1 PATCH TRANSDERMA (10:59)
[2024-03-03 12:00] VITALS: BP 122/81; PULSE 66; RESP 18; TEMP 37.1; O2SAT 98
[2024-03-03] MEDS: hyDROXYzine 25 mg Capsule 50 MG PO (12:44)
[2024-03-03] MEDS: diclofenac 75 mg DR Tablet PO (15:17)
[2024-03-03 15:22] VITALS: BP 115/72; PULSE 82; RESP 16; TEMP 36.8; O2SAT 98
--- NOTE | 2024-03-03 19:25 | W.PM.NPUPNS ---
Subjective NPU Subjective: Patient presented today reporting that she is doing okay. She continues to be on a one-to-one because of her leg brace and she injured herself trying to get to her child who was seeming to run out to the road. We discussed risks, benefits and alternatives of increasing her Abilify to 10 mg and to make sure that we have a trial at an appropriate dose prior to discontinuation if necessary and she understood and agreed to proceed as is documented in this note. She denied any side effects of the medication and we discussed some different pain management strategies while she is here. Mental Status Exam MSE Comments: This is an obese white female in hospital scrubs with limited grooming and adequate eye contact. No abnormal movements except for psychomotor retardation. Significant tattooing on her exposed skin including her neck. Cooperative with exam in mild distress. Speech was slightly decreased rate and volume. Mood described as depressed and wanting to fix things before they got worse, affect is congruent and slightly subdued.? Thought process: linear and logical.?Thought content: patient denies current suicidal or homicidal ideation, there were no delusions reported or noted, she endorsed some perceptual disturbances. Patient reports having had some self-injurious behavior which really concerned her.. She experiences feelings of helplessness, hopelessness, and worthlessness, along with sleep problems and low energy. She also experiences anxiety and panic attacks, describing them as feeling like being electrocuted. She has had hallucinations in the past. She also exhibits symptoms of OCD, such as counting how many times she chews on one side of her mouth and the other. Attention and concentration are intact and memory appears mostly reliable but none were formally tested. She is alert and oriented times 3. ? Insight and judgment limited. Impulse control is limited. Vitals/I&O/Wt Last Vital Signs Temp 98.2 F 03/03/24 15:22 Pulse 82 03/03/24 15:22 Resp 16 03/03/24 15:22 BP 115/72 03/03/24 15:22 Pulse Ox 98 03/03/24 15:22 O2 Del Method Room Air 03/03/24 15:22 Weight last 48 hrs Weight 79.379 kg Data NPU 03/02/24 03:56 03/02/24 03:56 A&P Assessment and plan (1) Posttraumatic stress disorder: (2) Borderline personality disorder: (3) Major depressive disorder, recurrent, moderate: (4) Generalized anxiety disorder: (5) Cannabis use disorder, severe, dependence: (6) History of methamphetamine use: Plan This is a 23-year-old white female with a long history of psychiatric illness and addiction going back to childhood with reports of significant trauma and PTSD symptoms who presents presents with a complex history of trauma, substance use, and mental health issues, including PTSD, BPD, depression, anxiety, and possible OCD. She is currently experiencing a high level of distress and is seeking help to manage her symptoms. 1.? ?Encourage individual ,milieu, and group therapy 2. ? We will attempt to gather collateral information. 3. ? TO-15 minute checks on the unit. 4.? Recommend sober living treatment at the highest level of care to which the patient is willing to commit. 5. Continue current medication except consider increasing Abilify more aggressively than she has been taking it in the past. Will start at Abilify 10 mg p.o. daily. Involuntary Hold Information 96 Hour Hold: 96 Hour Involuntary Admission: No 96 Hour Hold Ending Date: 03/08/24 96 Hour Hold Ending Time: 04:35 Attestations NPU Medical Necessity Statement*: Inpatient hospitalization is medically necessary and the clinically appropriate intervention at this time. We will monitor/initiate medications and make changes as indicated Likely length of stay is 3 to 5 days. Coding Level of Care Code Acute Code for [facility] Fwd Diagnoses Posttraumatic stress disorder F43.10 Borderline personality disorder F60.3 Major depressive disorder, recurrent, moderate F33.1 Generalized anxiety disorder F41.1 Cannabis use disorder, severe, dependence F12.20 History of methamphetamine use F15.91
[2024-03-03 19:35] VITALS: BP 102/68; PULSE 62; RESP 17; TEMP 36.9; O2SAT 98
[2024-03-03] MEDS: ARIPiprazole 10 mg Tablet 5 MG PO (20:38)
[2024-03-03] MEDS: trazodone 100 mg Tablet 300 MG PO (20:42)
[2024-03-03] MEDS: lidocaine 5% Patch 1 PATCH TOPICAL (21:09)
[2024-03-03 23:58] VITALS: BP 102/62; PULSE 61; RESP 16; O2SAT 97
[2024-03-04 04:00] VITALS: BP 115/67; PULSE 65; RESP 17; TEMP 36.8; O2SAT 97
[2024-03-04 07:35] VITALS: BP 103/66; PULSE 68; RESP 16; TEMP 37.2; O2SAT 97
[2024-03-04] MEDS: ARIPiprazole 10 mg Tablet PO (08:02)
[2024-03-04] MEDS: multivitamin therapeutic Tablet 1 TAB PO (08:02)
[2024-03-04] MEDS: cetirizine 10 mg Tablet PO (08:02)
[2024-03-04] MEDS: thiamine 100 mg Tablet PO (08:02)
[2024-03-04] MEDS: folic acid 1 mg Tablet PO (08:02)
[2024-03-04] MEDS: fluticasone nasal spray 16gm Btl 2 SPRAY INTRANASAL (08:03)
[2024-03-04] MEDS: diclofenac 75 mg DR Tablet PO (08:04)
[2024-03-04] MEDS: nicotine 21 mg Patch 1 PATCH TRANSDERMA (08:11)
--- NOTE | 2024-03-04 09:46 | P.NPUPN_ITS ---
Subjective NPU 2 Subjective: Patient presents today reporting that she is feeling better with the increase in the Abilify. She started asking about what discharge would look like. We discussed the likelihood of discharge at the beginning of the week and that we need to make sure that she has appropriate follow-up appointments etc. She denied any side effects to the medications. She reported that pain has been managed better since we had our conversation. Mental Status Exam 2 MSE Comments: This is an obese white female in hospital scrubs with limited grooming and adequate eye contact. No abnormal movements except for psychomotor retardation. Significant tattooing on her exposed skin including her neck. Cooperative with exam in mild distress. Speech was slightly decreased rate and volume. Mood described as getting a little better, affect is congruent and less subdued.? Thought process: linear and logical.?Thought content: patient denies current suicidal or homicidal ideation, there were no delusions reported or noted, she endorsed some perceptual disturbances. Patient reports having had some self- injurious behavior which really concerned her.. She experiences feelings of helplessness, hopelessness, and worthlessness, along with sleep problems and low energy. She also experiences anxiety and panic attacks, describing them as feeling like being electrocuted. She has had hallucinations in the past. She also exhibits symptoms of OCD, such as counting how many times she chews on one side of her mouth and the other. Attention and concentration are intact and memory appears mostly reliable but none were formally tested. She is alert and oriented times 3. ? Insight and judgment limited. Impulse control is limited. Vitals/I&O/Wt Last Vital Signs Temp 98.9 F 03/04/24 07:35 Pulse 68 03/04/24 07:35 Resp 16 03/04/24 07:35 BP 103/66 03/04/24 07:35 Pulse Ox 97 03/04/24 07:35 O2 Del Method Room Air 03/04/24 07:35 Data NPU 03/02/24 03:56 03/02/24 03:56 A&P Assessment and plan (1) Posttraumatic stress disorder: (2) Borderline personality disorder: (3) Major depressive disorder, recurrent, moderate: (4) Generalized anxiety disorder: (5) Cannabis use disorder, severe, dependence: (6) History of methamphetamine use: Plan This is a 23-year-old white female with a long history of psychiatric illness and addiction going back to childhood with reports of significant trauma and PTSD symptoms who presents presents with a complex history of trauma, substance use, and mental health issues, including PTSD, BPD, depression, anxiety, and possible OCD. She is currently experiencing a high level of distress and is seeking help to manage her symptoms. 1.? ?Encourage individual ,milieu, and group therapy 2. ? We will attempt to gather collateral information. 3. ? TO-15 minute checks on the unit. 4.? Recommend sober living treatment at the highest level of care to which the patient is willing to commit. 5. Continue current medication except consider increasing Abilify more aggressively than she has been taking it in the past. Started Abilify 10 mg p.o. daily Involuntary Hold Information 2 96 Hour Hold: 96 Hour Involuntary Admission: No 96 Hour Hold Ending Date: 96 Hour Hold Ending Time: 04:35 Attestations NPU 2 Medical Necessity Statement*: Inpatient hospitalization is medically necessary and the clinically appropriate intervention at this time. We will monitor/initiate medications and make changes as indicated Likely length of stay is 2-4 days. Coding Level of Care Code Acute Code for [facility] Fwd Diagnoses Posttraumatic stress disorder F43.10 Borderline personality disorder F60.3 Major depressive disorder, recurrent, moderate F33.1 Generalized anxiety disorder F41.1 Cannabis use disorder, severe, dependence F12.20 History of methamphetamine use F15.91
[2024-03-04 11:01] VITALS: BP 106/75; PULSE 62; RESP 16; TEMP 37.3; O2SAT 97
[2024-03-04] MEDS: hyDROXYzine 25 mg Capsule 50 MG PO ×2 (12:48→20:19)
[2024-03-04] MEDS: OLANZapine 5 mg ODT PO (13:09)
[2024-03-04] MEDS: lidocaine 5% Patch 1 PATCH TOPICAL ×2 (13:11→20:19)
[2024-03-04 13:47] VITALS: BP 127/86; PULSE 80; RESP 17; TEMP 36.6; O2SAT 97
[2024-03-04] MEDS: trazodone 100 mg Tablet 300 MG PO (20:19)
[2024-03-04 20:57] VITALS: BP 97/57; PULSE 72; RESP 16; TEMP 37.2; O2SAT 97
[2024-03-05 06:00] VITALS: BP 91/59; PULSE 61; RESP 16; TEMP 37.1; O2SAT 95
--- NOTE | 2024-03-05 07:55 | P.NPUPN_ITS ---
Subjective NPU 2 Subjective: Patient presented today reporting that she is feeling better. She endorses that the medication increase has been very helpful and she feels she will be able to manage on an outpatient basis. She reports she really needs to get back to work. We discussed the fact that Dr. Harris would be back tomorrow but that there was a likelihood for discharge tomorrow. She denied any side effects to the medication. Mental Status Exam 2 MSE Comments: This is an obese white female in hospital scrubs with limited grooming and adequate eye contact. No abnormal movements except for psychomotor retardation. Significant tattooing on her exposed skin including her neck. Cooperative with exam in mild distress. Speech was slightly decreased rate and volume. Mood described as getting a little better, affect is congruent and less subdued.? Thought process: linear and logical.?Thought content: patient denies current suicidal or homicidal ideation, there were no delusions reported or noted, she denied any perceptual disturbances. Patient reports having had some self- injurious behavior which really concerned her, but denies any urges for self- injurious behavior currently. Attention and concentration are intact and memory appears mostly reliable but none were formally tested. She is alert and oriented times 3. ? Insight and judgment limited. Impulse control is limited. Vitals/I&O/Wt Last Vital Signs Temp 98.7 F 03/05/24 06:00 Pulse 61 03/05/24 06:00 Resp 16 03/05/24 06:00 BP 91/59 03/05/24 06:00 Pulse Ox 95 03/05/24 06:00 O2 Del Method Room Air 03/04/24 13:47 Weight last 48 hrs Weight 82.826 kg Data NPU 03/02/24 03:56 03/02/24 03:56 A&P Assessment and plan (1) Posttraumatic stress disorder: (2) Borderline personality disorder: (3) Major depressive disorder, recurrent, moderate: (4) Generalized anxiety disorder: (5) Cannabis use disorder, severe, dependence: (6) History of methamphetamine use: Plan This is a 23-year-old white female with a long history of psychiatric illness and addiction going back to childhood with reports of significant trauma and PTSD symptoms who presents presents with a complex history of trauma, substance use, and mental health issues, including PTSD, BPD, depression, anxiety, and possible OCD. She is currently experiencing a high level of distress and is seeking help to manage her symptoms. 1.? ?Encourage individual ,milieu, and group therapy 2. ? We will attempt to gather collateral information. 3. ? TO-15 minute checks on the unit. 4.? Recommend sober living treatment at the highest level of care to which the patient is willing to commit. 5. Continue current medication except consider increasing Abilify more aggressively than she has been taking it in the past. Started Abilify 10 mg p.o. daily. Involuntary Hold Information 2 96 Hour Hold: 96 Hour Involuntary Admission: No 96 Hour Hold Ending Date: 1 96 Hour Hold Ending Time: 04:35 Other Hold: Hold End Date: 03/08/24 Attestations NPU 2 Medical Necessity Statement*: Inpatient hospitalization is medically necessary and the clinically appropriate intervention at this time. We will monitor/initiate medications and make changes as indicated Likely length of stay is 1-3 days. Coding Level of Care Code Acute Code for [facility] Fwd Diagnoses Posttraumatic stress disorder F43.10 Borderline personality disorder F60.3 Major depressive disorder, recurrent, moderate F33.1 Generalized anxiety disorder F41.1 Cannabis use disorder, severe, dependence F12.20 History of methamphetamine use F15.91
[2024-03-05] MEDS: multivitamin therapeutic Tablet 1 TAB PO (08:13)
[2024-03-05] MEDS: fluticasone nasal spray 16gm Btl 2 SPRAY INTRANASAL (08:13)
[2024-03-05] MEDS: thiamine 100 mg Tablet PO (08:13)
[2024-03-05] MEDS: ARIPiprazole 10 mg Tablet PO (08:13)
[2024-03-05] MEDS: diclofenac 75 mg DR Tablet PO ×2 (08:13→14:10)
[2024-03-05] MEDS: folic acid 1 mg Tablet PO (08:13)
[2024-03-05] MEDS: cetirizine 10 mg Tablet PO (08:13)
[2024-03-05] MEDS: nicotine 21 mg Patch 1 PATCH TRANSDERMA (09:14)
--- NOTE | 2024-03-05 11:54 | PC.NURSE ---
Patient reports that she was prescribed hydrocodone recently. This nurse talked with staff at [facility], hydrocone 7.5-325 1 tab PO every 8 hours as needed for pain, 7 day supply. This was sent in by [employer]. It was picked up on 02/28. This medication was restarted with verbal permission from Dr. Real.
[2024-03-05] MEDS: HYDROcodone-acetaminophen 7.5-325 mg Tablet 1 TAB PO (12:08)
[2024-03-05] MEDS: OLANZapine 5 mg ODT PO (12:31)
[2024-03-05 14:00] VITALS: BP 106/63; PULSE 66; RESP 16; TEMP 37.2; O2SAT 98
[2024-03-05] MEDS: acetaminophen 325 mg Tablet 650 MG PO (16:06)
[2024-03-05] MEDS: neomycin-poly-bacitracin oint 28 gm 1 APPLIC TOPICAL (17:52)
--- NOTE | 2024-03-05 17:54 | PC.NURSE ---
Neosporin applied to small abrasion located on patient's middle left back. The area is about 0.5 inches long, and scabbed over.
[2024-03-05] MEDS: hyDROXYzine 25 mg Capsule 50 MG PO (18:00)
[2024-03-05 19:54] VITALS: BP 113/70; PULSE 66; RESP 17; TEMP 37.1; O2SAT 97
[2024-03-05] MEDS: trazodone 100 mg Tablet 300 MG PO (20:11)
[2024-03-05] MEDS: nicotine 2 mg Gum BUCCAL (20:11)
[2024-03-05] MEDS: lidocaine 5% Patch 1 PATCH TOPICAL (20:18)
[2024-03-06 06:00] VITALS: BP 97/57; PULSE 50; RESP 16; TEMP 36.3; O2SAT 99
[2024-03-06] MEDS: fluticasone nasal spray 16gm Btl 2 SPRAY INTRANASAL (07:46)
[2024-03-06] MEDS: thiamine 100 mg Tablet PO (07:46)
[2024-03-06] MEDS: cetirizine 10 mg Tablet PO (07:46)
[2024-03-06] MEDS: folic acid 1 mg Tablet PO (07:46)
[2024-03-06] MEDS: nicotine 21 mg Patch 1 PATCH TRANSDERMA (07:46)
[2024-03-06] MEDS: multivitamin therapeutic Tablet 1 TAB PO (07:47)
[2024-03-06] MEDS: ARIPiprazole 10 mg Tablet PO (07:47)
[2024-03-06] MEDS: HYDROcodone-acetaminophen 7.5-325 mg Tablet 1 TAB PO (08:06)
[2024-03-06] MEDS: hyDROXYzine 25 mg Capsule 50 MG PO (08:06)
[2024-03-06] MEDS: diclofenac 75 mg DR Tablet PO (11:02)
[2024-03-06 14:00] VITALS: BP 125/81; PULSE 65; RESP 16; TEMP 37.1; O2SAT 99
[2024-03-06] MEDS: acetaminophen 325 mg Tablet 650 MG PO (14:07)
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
[2024-03-06 14:29] VITALS: BP 97/57; PULSE 50; RESP 16; TEMP 36.3; O2SAT 99
== END 2024-03-06 14:47 | disposition home or self-care (01) | DRG 883 ==
LOC: ER 04:24 → NP 05:27
PROVIDERS: Admitting Provider Psychiatry & Neurology Psychiatry; Emergency Provider Emergency Medicine; PCP Registered Nurse; Visit Provider Psychiatry & Neurology Psychiatry
DX: F60.3 Borderline personality disorder (principal); F33.1 Major depressive disorder, recurrent, moderate; F43.10 Post-traumatic stress disorder, unspecified; F41.1 Generalized anxiety disorder; F12.20 Cannabis dependence, uncomplicated; E66.9 Obesity, unspecified; Z68.35 Body mass index [BMI] 35.0-35.9, adult
CPT/HCPCS: 80053; 80306; 80307; 81001; 84443; 84703; 85025; 93005; 97150; 97165; 99285

== ENCOUNTER 2024-03-16 21:16 | Emergency (ER) | payer BC, MEDICAID, SELFPAY ==
[2024-03-16 21:19] VITALS: BP 124/70; PULSE 67; RESP 20; TEMP 36.6; O2SAT 100; BMI 26.6
[2024-03-16 21:43] VITALS: BP 109/77; PULSE 54; RESP 16; O2SAT 99
--- NOTE | 2024-03-16 22:07 | XRR_ITS ---
PROCEDURE INFORMATION: Exam: XR Chest Exam date and time: 03/16/2024 10:16 PM Age: 24 years old Clinical indication: Pain; Chest pressure; Additional info: Chest pain TECHNIQUE: Imaging protocol: Radiologic exam of the chest. Views: 1 view. COMPARISON: CR XR chest 2V* [id number] 03/18/2017 8:35 AM FINDINGS: Lungs: Unremarkable. No consolidation. Pleural spaces: Unremarkable. No pleural effusion. No pneumothorax. Heart/Mediastinum: Unremarkable. No cardiomegaly. Bones/joints: Unremarkable. XR/XR chest 1V portable [id number] IMPRESSION: No acute findings.
[2024-03-16 22:40] LABS: Bacteria Urine 1+ /hpf; Hyaline Casts Urine 0-4 /lpf; RBC Urine 0-2 /hpf (0-2)
[2024-03-16 22:48] LABS: Add Urine Microscopic? YES; Bilirubin Urine Negative (Negative); Blood Urine Negative (Negative); Glucose Urine UA Negative (Normal); Ketones Urine Negative (Negative); Leukocyte Esterase Urine 1+ (Negative); Nitrate Urine Negative (Negative); Protein Urine Negative (Negative); Specific Gravity, Urine 1.011 (1.005-1.030); Urine Appearance Clear (CLEAR); Urine Color Yellow (Yellow); pH Urine 6.5 (5-7)
[2024-03-16 23:07] LABS: Basophils # 0.1 10^3/uL (0.0-0.1); Basophils % 0.7 %; Eosinophils # 0.2 10^3/uL (0.0-0.8); Eosinophils % 1.5 %; Hematocrit 40.5 % (36-47); Lymphocytes % 29.1 %; Mean Corpuscular HGB Conc 32.3 g/dL (30-55); Mean Corpuscular Hemoglobin 31.6 pg (27-33); Mean Corpuscular Volume 97.8 fl (85-98); Mean Platelet Volume 9.1 fL (7.4-10.4); Monocytes # 0.8 10^3/uL (0.2-0.9); Monocytes % 7.5 %; Neutrophils # 6.29 10^3/uL (1.8-7.7); Neutrophils % 60.9 %; Nucleated Red Blood Cells % 0 %; Platelet Count 333 10^3/cmm (157-399); Red Blood Count 4.14 10^6/uL (3.85-5.65); Red Cell Distribution Width 13.9 % (12.1-15.1); White Blood Count 10.34 10^3/uL (3.29-11.43)
[2024-03-16 23:28] VITALS: BP 93/49; PULSE 56; RESP 16; O2SAT 98
[2024-03-16 23:28] LABS: Alanine Aminotransferase 19 U/L (0-33); Albumin Level 4.4 g/dL (3.5-5.2); Alkaline Phosphatase 80 U/L (35-105); Anion Gap 14.1 (5-19); Aspartate Amino Transferase 18 U/L (0-32); Blood Urea Nitrogen 6 mg/dL (6-20); Calcium 8.6 mg/dL (8.5-10.5); Carbon Dioxide 25 mmol/L (22-29); Chloride 102 mmol/L (98-107); Creatine Phosphokinase 88 U/L (26-192); Creatinine Clr Calc Pharmacy 121.5672; Globulin 2.9 g/dL (1.3-4.6); Glomerular Filtration Rate 101.1 mL/min (90-130); Glucose 95 mg/dL (65-115); Osmolality Calculated 281 mOsm/kg (285-295); Potassium 4.1 mmol/L (3.5-5.1); Sodium 137 mmol/L (136-145); Total Bilirubin 0.2 mg/dL (0.15-1.2); Total Protein 7.3 g/dL (6.6-8.7)
[2024-03-16 23:29] LABS: Lithium 0.3 mmol/L (0.6-1.2)
--- NOTE | 2024-03-16 23:57 | ED_ITS ---
HPI - Allergic Reaction 2 General: Chief complaint: Allergic Reaction Stated complaint: believes new med reaction Time Seen by Provider: 03/16/24 21:32 Source: patient Mode of arrival: ambulatory Limitations: no limitations History of Present Illness: HPI narrative: Patient is a 24-year-old female who presents to the emergency department complaining of medication reaction onset today. She states that she took her lithium as normal this morning, but took 1 hydrocodone in the afternoon after she had some musculoskeletal pain after moving furniture. She states that she felt dizzy and lightheaded as well as nauseous, is concerned that her medications reacted. At this time she is asymptomatic, just stating that she is tired because it is so late. Also her primary complaint is that she needs a work note for leaving work early today. No other symptoms reported this time. She notes that she took her lithium this morning around 0900, took the hydrocodone at 1600. MD complaint: other (Medication reaction) Onset (ago): hour(s) Exposure: medication Associated symptoms: Reports dizziness and nausea; Deny abdominal pain or vomiting Treatment prior to arrival: none Related Data Previous Rx's Medication Instructions Recorded ondansetron 8 mg disintegrating 8 mg PO Q8H PRN nausea and 12/14/23 tablet vomiting #10 tabs cetirizine 10 mg tablet 10 mg PO DAILY 30 days #30 tabs 02/08/24 fluticasone propionate 50 2 spray intranasal DAILY #16 grams 02/08/24 mcg/actuation nasal spray,suspension (Flonase Allergy Relief) ketorolac 10 mg tablet 10 mg PO TID PRN pain #10 tabs 02/20/24 diclofenac potassium 50 mg tablet 50 mg PO TID 30 days #90 tabs 02/29/24 diclofenac sodium 50 mg 50 mg PO TID PRN pain #90 tabs 02/29/24 tablet,delayed release hydrocodone 7.5 mg-acetaminophen 1 tab PO Q8H PRN pain 7 days #15 02/29/24 325 mg tablet tabs aripiprazole 10 mg tablet 10 mg PO DAILY 30 days #30 tabs 03/06/24 hydroxyzine pamoate 25 mg capsule 50 mg (2 x 25 mg) PO Q6H PRN 03/06/24 Anxiety 30 days #60 caps trazodone 100 mg tablet 300 mg (3 x 100 mg) PO BEDTIME 30 03/06/24 days #90 tabs lithium carbonate 300 mg 300 mg PO BID #60 tabs 03/07/24 tablet,extended release Allergies Allergy/AdvReac Type Severity Reaction Status Date / Time fluoxetine [From Prozac] Allergy Severe ADR-Halluci Verified 03/07/24 13:22 nating grass pollen Allergy Intermediate ALGY-Nasal Verified 03/07/24 13:22 Discharge ketchup Allergy Intermediate ADR-Gastrointestinal Verified 03/07/24 13:22 Upset gluten Allergy Unknown ADR-Abdominal Verified 03/07/24 13:22 Pain antipsychotics Allergy Unknown ADR-Halluci Uncoded 03/07/24 13:22 nating Review of Systems 2 General: Reports: 10 or more systems reviewed and unremarkable except in HPI and below Const: Reports: other (Medication reaction); Denies: fever(s), chills or fatigue Eyes: Denies: change in vision ENMT: Denies: throat pain, ear or mastoid pain or nasal discharge Card: Reports: lightheadedness; Denies: chest pain, palpitations or swelling of feet/ankles Resp: Denies: dyspnea, productive cough or wheezing GI: Reports: nausea; Denies: abdominal pain, vomiting, diarrhea or constipation : Denies: flank pain, difficulty voiding, dysuria or urinary frequency Musc: Denies: neck pain, back pain or joint pain Skin/Breast: Denies: rash Neuro: Reports: dizziness; Denies: headache(s), numbness in extremities or weakness in extremities PFSH ED 2 PFSH: Medical History Positive Jeannine test of left knee Recurrent left knee instability History of methamphetamine use Psychiatric care Mid back pain Depression History of herpes genitalis Posttraumatic stress disorder History of kidney stones Had stone in 08/2015. Seen by Dr. Castro, Uro, at that time Degenerative disc disease Diverticulitis Surgical History Status post colonoscopy H/O esophagogastroduodenoscopy History of laparoscopic cholecystectomy (09/02/16) [place] [facility] [place] History of breast biopsy (~05/2019) Left H/O dilation and curettage (~02/2018) [place] [facility] [place] Family History Father CAD (coronary artery disease) Hyperlipidemia Grandfather CAD (coronary artery disease) Mother Hypertension Lung disease Psychiatric illness PTSD, anxiety, depression, and anger problems. Brother Psychiatric illness Sister Psychiatric illness Family/Other Suicide Uncle Hyperlipidemia paternal side Grandmother Colon cancer, Onset Age: 80 paternal Other Cancer Diabetes Denies family history of Ovarian cancer Clotting disorder Breast cancer Anesthesia complication Bleeding disorder Uterine cancer Thyroid disease Stroke Social History Smoking and tobacco/nicotine status: current every day tobacco/nicotine user Substance/Drug Use: former Date of last use: Marijuana Do you think of yourself as: Straight/Heterosexual Physical Exam 2 Const: COMMON NORMALS: no acute distress, patient oriented x3 and no limitations GENERAL APPEARANCE: cooperative, comfortable and well developed ORIENTATION/CONSCIOUSNESS: Yes awake, Yes oriented to person, Yes oriented to place and Yes oriented to time HENMT: COMMON NORMALS: normocephalic, atraumatic and hearing grossly normal bilaterally HEAD & SCALP: normocephalic and atraumatic Eye: COMMON NORMALS: Equal, round and reactive pupils present, EOMs intact bilaterally and conjunctivae normal CONJUNCTIVA: Yes conjunctivae normal P UPIL: Yes Equal, round and reactive pupils present Neck/C-Spine: COMMON NORMALS: full ROM, supple and no JVD Resp: COMMON NORMALS: normal respiratory effort, No retractions, No use of accessory muscles and clear to auscultation bilaterally AUSCULTATION: clear to auscultation bilaterally Cardio: COMMON NORMALS: no JVD, regular rate, regular rhythm, No clicks present (Cardio), No murmurs present (Cardio) and No rub (Cardio) RATE: r egular rate RHYTHM: regular rhythm GI: COMMON NORMALS: Normal to inspection, nondistended, normoactive bowel sounds present, Soft to palpation and non-tender AUSCULTATION: Yes normoactive bowel sounds PALPATION: Yes Soft to palpation RECTAL EXAM: d eferred Extremity: COMMON NORMALS: normal to inspection, full ROM and capillary refill normal Neuro: COMMON NORMALS: patient oriented x3, CN's II-XII intact bilaterally, moves all extremities, no focal motor deficits and no sensory deficits noted SENSORIUM/ORIENTATION: Yes oriented to person, Yes oriented to place and Yes oriented to time Psych: COMMON NORMALS: mental status grossly normal and Normal thought process present THOUGHT PROCESS: Normal thought process present Skin: COMMON NORMALS: no rashes or lesions noted GENERAL SKIN EXAM: no rashes or lesions noted Course 2 Vital Signs: Vital signs: Vital Signs Temperature 98 F 03/16/24 21:19 Pulse Rate 56 L 03/16/24 23:28 Respiratory Rate 16 03/16/24 23:28 Blood Pressure 93/49 03/16/24 23:28 Pulse Oximetry 98 03/16/24 23:28 Oxygen Delivery Me thod Room Air 03/16/24 23:28 MDM - Allergic Reaction Medical Decision Making Patient presented to the ED she had a medication reaction with lithium and hydrocodone. Asymptomatic at time of examination. She was requesting a work note primarily for leaving earlier today. Obtained some labs, all were normal. A lithium level was obtained and appeared subtherapeutic, making it less likely that this was a medication interaction. She had no symptoms consistent with a serotonin syndrome and her presentation was not aligned with this, I have very low suspicion for this at this time. A creatinine kinase was negative to support this. Urinalysis was obtained, mild signs of UTI but patient asymptomatic so will not treat at this time. EKG reviewed with physician and unremarkable. Chest x-ray normal. Her heart rate was noted at times to drop in the high 40s and stay in the 50s and low 60s, when reviewed the prior vitals this seemed stable and she was not symptomatic with this. Her blood pressure also will drop in the 90s systolic, again this was consistent with prior visits. She was walked prior to discharge to see if she was symptomatic, she had no symptoms to report. Because of this we will discharge home have her closely follow-up with primary care. Discussed with Dr. Goldsmith. Lab Data 03/16/24 22:32 03/16/24 22:32 Radiology Impressions Chest X-Ray 03/16/24 22:07 IMPRESSION: No acute findings. Laboratory Results WBC 10.34 10^3/uL (3.29-11.43) 03/16/24 22:32 RBC 4.14 10^6/uL (3.85-5.65) 03/16/24 22:32 Hgb 13.10 g/dL (11.27-16.99) 03/16/24 22: Hct 40.5 % (36-47) 03/16/24: MCV 97.8 fl (85-98) 03/16/24: MCH 31.6 pg (27-33) 03/16/24: MCHC 32.3 g/dL (30-55) 03/16/24: RDW 13.9 % (12.1-15.1) 03/16/24: Plt Count 333 10^3/cmm (157-399) 03/16/24 22: MPV 9.1 fL (7.4-10.4) 03/16/24: Neut % (Auto) 60.9 % 03/16/24: Lymph % (Auto) 29.1 % 03/16/24: [place] % (Auto) 7.5 % 03/16/24: Eos % (Auto) 1.5 % 03/16/24: Baso % (Auto) 0.7 % 03/16/24: Neut # (Auto) 6.29 10^3/uL (1.8-7.7) 03/16/24: Lymph # (Auto) 3.0 10^3/uL (0.8-4.8) 03/16/24: [place] # (Auto) 0.8 10^3/uL (0.2-0.9) 03/16/24: Eos # (Auto) 0.2 10^3/uL (0.0-0.8) 03/16/24: Baso # (Auto) 0.1 10^3/uL (0.0-0.1) 03/16/24: Nucleated RBC % (auto) 0 % 03/16/24: Nucleated RBCs # 0.0 /100WBC 03/16/24 22: Sodium 137 mmol/L (136-145) 03/16/24 22:32 Potassium 4.1 mmol/L (3.5-5.1) 03/16/24 22: Chloride 102 mmol/L (98-107) 03/16/24 22: Carbon Dioxide 25 mmol/L (22-29) 10/31/24 22:32 Anion Gap 14.1 (5-19) 03/16/24 22:32 BUN 6 mg/dL (6-20) 03/16/24 22:32 Creatinine 0.7 mg/dL (0.5-0.9) 03/16/24 22:32 GFR Calculation 101.1 mL/min (90-130) 03/16/24 22:32 Glucose 95 mg/dL (65-115) 03/16/24 22:32 Calculated Osmolality 281 mOsm/kg (285-295) L 03/16/24 22:32 Calcium 8.6 mg/dL (8.5-10.5) 03/16/24 22:32 Total Bilirubin 0.2 mg/dL (0.15-1.2) 03/16/24 22:32 AST 18 U/L (0-32) 03/16/24 22:32 ALT 19 U/L (0-33) 03/16/24 22:32 Alkaline Phosphatase 80 U/L (35-105) 03/16/24 22:32 Creatine Kinase 88 U/L (26-192) 03/16/24 22:32 Total Protein 7.3 g/dL (6.6-8.7) 03/16/24 22:32 Albumin 4.4 g/dL (3.5-5.2) 03/16/24 22:32 Globulin 2.9 g/dL (1.3-4.6) 03/16/24 22:32 Urine Color Yellow (Yellow) 03/16/24 20:34 Urine Appearance Clear (CLEAR) 03/16/24 20:34 Urine pH 6.5 (5-7) 03/16/24 20:34 Ur Specific [place] 1.011 (1.005-1.030) 03/16/24 20:34 Urine Protein Negative (Negative) 03/16/24 20:34 Urine Glucose (UA) Negative (Normal) 03/16/24 20:34 Urine Ketones Negative (Negative) 03/16/24 20:34 Urine Blood Negative (Negative) 03/16/24 20:34 Urine Nitrate Negative (Negative) 03/16/24 20:34 Urine Bilirubin Negative (Negative) 03/16/24:34 Urine Urobilinogen 1.0 mg/dL (Negative) 03/16/24 20:34 Ur Leukocyte Esterase 1+ (Negative) A 03/16/24 20:34 Urine RBC 0-2 /hpf (0-2) 03/16/24 20:34 Urine WBC 11-20 /hpf (0-5) H 03/16/24 20:34 Ur Squamous Epith Cells 6-10 /hpf (0-5) 03/16/24 20:34 Amorphous Sediment Not Reportable 03/16/24 20:34 Urine Bacteria 1+ /hpf (NONE) H 03/16/24 20:34 Hyaline Casts 0-4 /lpf H 03/16/24 20:34 [place] 0.3 mmol/L (0.6-1.2) L 03/16/24 22:32 All radiology interpretation(s) finalized by discharge Discharge Plan Discharge Patient Disposition: Home Clinical Impression: Medication reaction Condition: Stable Prescriptions: No Action hydrocodone-acetaminophen 7.5-325 mg tablet 1 tab PO Q8H PRN (Reason: pain) 7 Days Qty: 15 0RF diclofenac potassium 50 mg tablet 50 mg PO TID 30 Days Qty: 90 0RF ondansetron 8 mg tablet,disintegrating 8 mg PO Q8H PRN (Reason: nausea and vomiting) Qty: 10 0RF fluticasone propionate [Flonase Allergy Relief] 50 mcg/actuation spray,suspension 2 spray intranasal DAILY Qty: 16 0RF Rx Instructions: administer into each nostril cetirizine 10 mg tablet 10 mg PO DAILY 30 Days Qty: 30 0RF lithium carbonate 300 mg tablet extended release 300 mg PO BID Qty: 60 2RF Rx Instructions: Take 1 time daily for 3 days then twice daily diclofenac sodium 50 mg tablet,delayed release (DR/EC) 50 mg PO TID PRN (Reason: pain) Qty: 90 0RF ketorolac 10 mg tablet 10 mg PO TID PRN (Reason: pain) Qty: 10 0RF hydroxyzine pamoate 25 mg Capsule 50 mg PO Q6H PRN (Reason: Anxiety) 30 Days Qty: 60 1RF aripiprazole 10 mg Tablet 10 mg PO DAILY 30 Days Qty: 30 1RF trazodone 100 mg Tablet 300 mg PO BEDTIME 30 Days Qty: 90 1RF Discharge Orders: Discharge ED (Routine); Ordered 03/16/24 Ordered By: Jeovanny Olivares Referrals: Antoinette Peralta FNP [Primary Care Provider] - Patient Instructions: Opioid Safety Activity Restrictions/Additional Instructions: Follow-up with your primary care provider to discuss alternative pain medications. Continue taking the lithium twice a day as prescribed. Please return if you develop any new or concerning symptoms. 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
[2024-03-17 00:25] VITALS: BP 106/70; PULSE 50; RESP 16; O2SAT 99
== END 2024-03-17 00:15 | disposition home or self-care (01) ==
PROVIDERS: Emergency Provider Physician Assistant; PCP Registered Nurse
DX: T50.905A Adverse effect of unspecified drugs, medicaments and biological substances, initial encounter (principal); X58.XXXA Exposure to other specified factors, initial encounter
CPT/HCPCS: 36415; 71045; 80053; 80178; 81001; 82550; 85025; 99285

== ENCOUNTER → 2024-04-03 11:48 | Outpatient (BNVA) | payer BC, MEDICAID, SELFPAY | PROVIDERS: PCP Registered Nurse; Visit Provider Nurse Practitioner | DX: J02.9 Acute pharyngitis, unspecified (principal) | CPT/HCPCS: 87880 ==

== ENCOUNTER 2024-05-07 20:45 | Emergency (ER) | payer SELFPAY ==
[2024-05-07 20:53] VITALS: BP 109/69; PULSE 56; RESP 16; TEMP 36.7; O2SAT 98
--- NOTE | 2024-05-07 21:09 | ED_ITS ---
HPI - Nausea/Vomiting/Diarrhea General: Chief complaint: Nausea/Vomiting/Diarrhea Stated complaint: fever vomitting Time Seen by Provider: 05/07/24 21:06 History of Present Illness: Presents to the ER with complaints of nausea vomiting and diarrhea. Onset symptoms yesterday. Patient reports that two of the 3 children with her have had similar symptoms. She reports she is feeling better but her employer requires a work release for missing today She denies fever, chills, chest pain, shortness of breath, abdominal pain. Associated nausea: Yes Associated symtoms: Reports headache(s) and nausea; Denies chest pain Related Data Previous Rx's Medication Instructions Recorded cetirizine 10 mg tablet 10 mg PO DAILY 30 days #30 tabs 02/08/24 fluticasone propionate 50 2 spray intranasal DAILY #16 grams 02/08/24 mcg/actuation nasal spray,suspension (Flonase Allergy Relief) ketorolac 10 mg tablet 10 mg PO TID PRN pain #10 tabs 02/20/24 diclofenac potassium 50 mg tablet 50 mg PO TID 30 days #90 tabs 02/29/24 diclofenac sodium 50 mg 50 mg PO TID PRN pain #90 tabs 02/29/24 tablet,delayed release aripiprazole 10 mg tablet 10 mg PO DAILY 30 days #30 tabs 03/06/24 hydroxyzine pamoate 25 mg capsule 50 mg (2 x 25 mg) PO Q6H PRN 03/06/24 Anxiety 30 days #60 caps trazodone 100 mg tablet 300 mg (3 x 100 mg) PO BEDTIME 30 03/06/24 days #90 tabs lithium carbonate 300 mg 300 mg PO BID #60 tabs 03/07/24 tablet,extended release amoxicillin 500 mg tablet 500 mg PO BID 10 days #20 tabs 04/03/24 Allergies Allergy/AdvReac Type Severity Reaction Status Date / Time fluoxetine [From Prozac] Allergy Severe ADR-Halluci Verified 05/07/24 20:57 nating grass pollen Allergy Intermediate ALGY-Nasal Verified 05/07/24 20:57 Discharge ketchup Allergy Intermediate ADR-Gastrointestinal Verified 05/07/24 20:57 Upset gluten Allergy Unknown ADR-Abdominal Verified 05/07/24 20:57 Pain antipsychotics Allergy Unknown ADR-Halluci Uncoded 05/07/24 20:57 nating Review of Systems Const: Denies: fever(s) ENMT: Reports: throat pain, odynophagia, nasal discharge and nasal congestion; Denies: ear or mastoid pain Card: Denies: chest pain Resp: Reports: non-productive cough and chest congestion; Denies: dyspnea or wheezing GI: Reports: nausea, vomiting and diarrhea; Denies: abdominal pain Skin/Breast: Denies: rash Neuro: Reports: headache(s) Psych: Denies: difficulty concentrating PFSH ED PFSH: Medical History Positive Jeannine test of left knee Recurrent left knee instability History of methamphetamine use Psychiatric care Mid back pain Depression History of herpes genitalis Posttraumatic stress disorder History of kidney stones Had stone in 08/2015. Seen by Edilma Pena, at that time Degenerative disc disease Diverticulitis Surgical History Status post colonoscopy H/O esophagogastroduodenoscopy History of laparoscopic cholecystectomy (09/02/16) Performed by Dr. Perea [place] [facility] [place], [place] History of breast biopsy (~05/2019) Left H/O dilation and curettage (~02/2018) Dr. Tong @ [facility] [place] Family History Father CAD (coronary artery disease) Hyperlipidemia Grandfather CAD (coronary artery disease) Mother Hypertension Lung disease Psychiatric illness PTSD, anxiety, depression, and anger problems. Brother Psychiatric illness Sister Psychiatric illness Family/Other Suicide Uncle Hyperlipidemia paternal side Grandmother Colon cancer, Onset Age: 80 paternal Other Cancer Diabetes Denies family history of Ovarian cancer Clotting disorder Breast cancer Anesthesia complication Bleeding disorder Uterine cancer Thyroid disease Stroke Social History Smoking and tobacco/nicotine status: unknown if used tobacco/nicotine Substance/Drug Use: former Date of last use: Marijuana Do you think of yourself as: Straight/Heterosexual Physical Exam Const: COMMON NORMALS: patient oriented x3 GENERAL APPEARANCE: cooperative HENMT: COMMON NORMALS: external ears normal, EAC's normal, TM's normal bilaterally and Normal external nose present NOSE: Normal external nose present and Normal nares present EXTERNAL EAR: Yes external ears normal EXTERNAL AUDITORY CANAL: EAC's normal TYMPANIC MEMBRANE: TM's normal bilaterally THROAT: posterior oropharynx abnormal erythema Eye: COMMON NORMALS: EOMs intact bilaterally Lymph: LYMPHATIC: no lymphadenopathy noted Resp: COMMON NORMALS: normal respiratory effort and clear to auscultation bilaterally EFFORT & INSPECTION: Yes able to speak in complete sentences AUSCULTATION: clear to auscultation bilaterally Cardio: COMMON NORMALS: regular rate and regular rhythm RATE: regular rate RHYTHM: regular rhythm GI: AUSCULTATION: Yes normoactive bowel sounds Neuro: COMMON NORMALS: patient oriented x3 SPEECH: speech normal GAIT: Yes Normal gait present Psych: COMMON NORMALS: cooperative and speech normal SPEECH: Yes normal speech Skin: RASHES: no rashes Course Vital Signs: Vital signs: Vital Signs Temperature 98.1 F 05/07/24 20:53 Pulse Rate 56 L 05/07/24 20:53 Respiratory Rate 16 05/07/24 20:53 Blood Pressure 109/69 05/07/24 20:53 Pulse Oximetry 98 05/07/24 20:53 MDM - Nausea/Vomiting/Diarrhea Medical Decision Making Patient presents to the emergency department with nausea vomiting diarrhea for the last 24 hours. Patient missed her scheduled shift today and was told she needed a work note in order to return. Providing her with a work note. Patient denies any other needs. She states she is feeling much better. She is nontoxic-appearing. At this time no further diagnostics are warranted No radiology studies performed this visit Discharge Plan Discharge Patient Disposition: Home Clinical Impression: Nausea & vomiting Condition: Stable Prescriptions: No Action diclofenac potassium 50 mg tablet 50 mg PO TID 30 Days Qty: 90 0RF fluticasone propionate [Flonase Allergy Relief] 50 mcg/actuation spray,suspension 2 spray intranasal DAILY Qty: 16 0RF Rx Instructions: administer into each nostril cetirizine 10 mg tablet 10 mg PO DAILY 30 Days Qty: 30 0RF lithium carbonate 300 mg tablet extended release 300 mg PO BID Qty: 60 2RF Rx Instructions: Take 1 time daily for 3 days then twice daily amoxicillin 500 mg tablet 500 mg PO BID 10 Days Qty: 20 0RF diclofenac sodium 50 mg tablet,delayed release (DR/EC) 50 mg PO TID PRN (Reason: pain) Qty: 90 0RF ketorolac 10 mg tablet 10 mg PO TID PRN (Reason: pain) Qty: 10 0RF hydroxyzine pamoate 25 mg Capsule 50 mg PO Q6H PRN (Reason: Anxiety) 30 Days Qty: 60 1RF aripiprazole 10 mg Tablet 10 mg PO DAILY 30 Days Qty: 30 1RF trazodone 100 mg Tablet 300 mg PO BEDTIME 30 Days Qty: 90 1RF Discharge Orders: Discharge ED (Routine); Ordered 05/07/24 Ordered By: Ada Menendez Referrals: Antoinette Peralta FNP [Primary Care Provider] - Discharge Diet: Advance as tolerated Discharge Activity: Resume usual activity Patient Instructions: Pain Management, Acute Nausea and Vomiting (ED) Stand Alone Forms: Work/School Release Coding 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
== END 2024-05-07 21:25 | disposition home or self-care (01) ==
PROVIDERS: Emergency Provider Nurse Practitioner; PCP Registered Nurse
DX: R11.2 Nausea with vomiting, unspecified (principal)
CPT/HCPCS: 99281

== ENCOUNTER → 2024-07-20 15:33 | Outpatient (BNVA) | payer SELFPAY | PROVIDERS: PCP Registered Nurse; Visit Provider Physician Assistant | DX: J30.9 Allergic rhinitis, unspecified (principal) | CPT/HCPCS: 87426 ==

== ENCOUNTER 2024-09-15 14:39 | Emergency (ER) | payer SELFPAY ==
[2024-09-15 14:41] VITALS: BP 114/68; PULSE 70; RESP 14; TEMP 36.7; O2SAT 99
[2024-09-15 15:15] LABS: Basophils # 0.1 10^3/uL (0.0-0.1); Basophils % 0.9 %; Eosinophils # 0.1 10^3/uL (0.0-0.8); Eosinophils % 0.7 %; Hematocrit 43.7 % (36-47); Lymphocytes # 2.6 10^3/uL (0.8-4.8); Lymphocytes % 25.5 %; Mean Corpuscular HGB Conc 32.3 g/dL (30-55); Mean Corpuscular Hemoglobin 31.9 pg (27-33); Mean Corpuscular Volume 98.9 fl (85-98); Mean Platelet Volume 9.6 fL (7.4-10.4); Monocytes # 0.6 10^3/uL (0.2-0.9); Monocytes % 5.5 %; Neutrophils # 6.73 10^3/uL (1.8-7.7); Neutrophils % 67.2 %; Nucleated Red Blood Cells % 0 %; Platelet Count 278 10^3/cmm (157-399); Red Blood Count 4.42 10^6/uL (3.85-5.65); Red Cell Distribution Width 14.2 % (12.1-15.1); White Blood Count 10.02 10^3/uL (3.29-11.43)
[2024-09-15 15:34] LABS: HCG Quantitative < 1.00 mIU/mL
[2024-09-15 15:45] LABS: Alanine Aminotransferase 28 U/L (0-33); Albumin Level 4.3 g/dL (3.5-5.2); Alkaline Phosphatase 76 U/L (35-105); Anion Gap 15.8 (5-19); Aspartate Amino Transferase 20 U/L (0-32); Blood Urea Nitrogen 6 mg/dL (6-20); Calcium 9.2 mg/dL (8.5-10.5); Carbon Dioxide 23 mmol/L (22-29); Chloride 103 mmol/L (98-107); Creatinine Clr Calc Pharmacy 136.9323; Globulin 3.1 g/dL (1.3-4.6); Glomerular Filtration Rate 120.8 mL/min (90-130); Glucose 90 mg/dL (65-115); Osmolality Calculated 283 mOsm/kg (285-295); Potassium 3.8 mmol/L (3.5-5.1); Sodium 138 mmol/L (136-145); Total Bilirubin 0.4 mg/dL (0.15-1.2); Total Protein 7.4 g/dL (6.6-8.7)
--- NOTE | 2024-09-15 15:48 | W.ED.FEMALGU ---
Documented by User: DENG Segura 09/15/24 15:59 HPI - Female Genitourinary General: Chief complaint: Vaginal Bleeding Stated complaint: vaginal bleeding Time Seen by Provider: 09/15/24 15:05 Source: patient Mode of arrival: ambulatory Limitations: no limitations History of Present Illness: Patient is a 24-year-old female presents to ED today with complaint of vaginal bleeding and right lower abdominal/pelvic pain over the past 3 days. Patient states she is not scheduled to start her menstrual cycle for another 10 days or so. She does have a previous history of tubal ligation for sterilization purposes. She states normally she has regular menstrual cycles. She states pain started approximately 3 days ago and has been fairly constant since. No fevers. No vomiting or changes in bowel movements. She is not complaining of any hematuria or dysuria. She arrives in no acute distress with stable vital signs. MD elicited complaint: vaginal bleeding Onset (ago): day(s) Severity: moderate Quality of pain: sharp Consistency: constant Vaginal discharge: none Vaginal bleeding: moderate Exacerbating factors: movement Relieving factors: none Associated symptoms: Reports abdominal pain; Deny headache(s), nausea or vaginal discharge Treatment prior to arrival: none Patient : No Related Data Previous Rx's ?Medication ?Instructions ?Recorded ketorolac 10 mg tablet 10 mg PO Q6H PRN pain 5 days #20 09/15/24 tabs tamsulosin 0.4 mg capsule 0.4 mg PO DAILY #14 caps 09/15/24 Allergies Allergy/AdvReac Type Severity Reaction Status Date / Time fluoxetine (From Prozac) Allergy Severe ADR-Halluci Verified 09/15/24 14:46 nating grass pollen Allergy Intermediate ALGY-Nasal Verified 09/15/24 14:46 Discharge ketchup Allergy Intermediate ADR-Gastrointestinal Verified 09/15/24 14:46 Upset gluten Allergy Unknown ADR-Abdominal Verified 09/15/24 14:46 Pain antipsychotics Allergy Unknown ADR-Halluci Uncoded 09/15/24 14:46 nating Review of Systems Const: Denies: fever(s), chills, body aches, fatigue or malaise Card: Denies: chest pain Resp: Denies: dyspnea GI: Reports: abdominal pain; Denies: nausea, vomiting, diarrhea or change in bowel habits : Reports: urinary frequency, vaginal bleeding, irregular period and pelvic pain; Denies: flank pain, difficulty voiding, dysuria, urinary urgency, urinary hesitancy, vaginal odor or vaginal discharge Musc: Denies: back pain Neuro: Denies: headache(s) or dizziness PFSH ED PFSH: Medical History Positive Jeannine test of left knee Recurrent left knee instability History of methamphetamine use Psychiatric care Mid back pain Depression History of herpes genitalis Posttraumatic stress disorder History of kidney stones Had stone in 08/2015. Seen by Dr. Castro, Uro, at that time Degenerative disc disease Diverticulitis Surgical History Status post colonoscopy H/O esophagogastroduodenoscopy History of laparoscopic cholecystectomy (09/02/16) Performed by Dr. Perea at [facility] in [place], [place] History of breast biopsy (~05/2019) Left H/O dilation and curettage (~02/2018) Dr. Tong @ [facility] Family History Father CAD (coronary artery disease) Hyperlipidemia Grandfather CAD (coronary artery disease) Mother Hypertension Lung disease Psychiatric illness PTSD, anxiety, depression, and anger problems. Brother Psychiatric illness Sister Psychiatric illness Family/Other Suicide Uncle Hyperlipidemia paternal side Grandmother Colon cancer, Onset Age: 80 paternal Other Cancer Diabetes Denies family history of Ovarian cancer Clotting disorder Breast cancer Anesthesia complication Bleeding disorder Uterine cancer Thyroid disease Stroke Social History Smoking and tobacco/nicotine status: never used tobacco/nicotine Substance/Drug Use: former Date of last use: Marijuana Do you think of yourself as: Straight/Heterosexual Physical Exam Const: COMMON NORMALS: no acute distress, patient oriented x3, no limitations, alert and well nourished GENERAL APPEARANCE: cooperative NUTRITIONAL APPEARANCE: overweight ORIENTATION/CONSCIOUSNESS: Yes awake, Yes oriented to person, Yes oriented to place and Yes oriented to time Resp: COMMON NORMALS: normal respiratory effort and clear to auscultation bilaterally AUSCULTATION: clear to auscultation bilaterally Cardio: COMMON NORMALS: regular rate and regular rhythm RATE: regular rate RHYTHM: regular rhythm GI: COMMON NORMALS: Normal to inspection, nondistended, normoactive bowel sounds present, Soft to palpation, No hepatosplenomegaly present and no masses INSPECTION: Yes normal to inspection AUSCULTATION: Yes normoactive bowel sounds PALPATION: Yes Soft to palpation, Yes Tenderness to palpation present (GI) (RLQ/R pelvis), No Guarding due to palpation present (GI), No Rigid due to palpation and Yes No hepatosplenomegaly present : COMMON NORMALS: Yes no CVA tenderness BLADDER/KIDNEY EXAM: Yes no CVA tenderness Back/Pelvis: COMMON NORMALS: no CVA tenderness Extremity: GENERAL: Yes normal exam except as noted Neuro: COMMON NORMALS: patient oriented x3, moves all extremities, no focal motor deficits, no sensory deficits noted and gait normal SENSORIUM/ORIENTATION: Yes alert, Yes oriented to person, Yes oriented to place and Yes oriented to time Skin: COMMON NORMALS: no rashes or lesions noted GENERAL SKIN EXAM: no rashes or lesions noted Course Vital Signs: Vital signs: Vital Signs Temperature 98.1 F 09/15/24 14:41 Pulse Rate 70 09/15/24 14:41 Respiratory Rate 14 09/15/24 14:41 Blood Pressure 114/68 09/15/24 14:41 Pulse Oximetry 99 09/15/24 14:41 Oxygen Delivery Me thod Room Air 09/15/24 14:41 MDM - Female Lab Data 09/15/24 15:03 09/15/24 15:03 Radiology Impressions Transvaginal US 09/15/24 16:29 IMPRESSION: Preserved flow to both ovaries. Complex cystic structure in the left ovary may represent a hemorrhagic cyst and fits O-RADS 2 criteria. Short-term 3 to six-month follow up can be obtained. Laboratory Results WBC 10.02 10^3/uL (3.29-11.43) 09/15/24 15:03 RBC 4.42 10^6/uL (3.85-5.65) 09/15/24 15:03 Hgb 14.10 g/dL (11.27-16.99) 09/15/24 15:03 Hct 43.7 % (36-47) 09/15/24 15:03 MCV 98.9 fl (85-98) H 09/15/24 15:03 MCH 31.9 pg (27-33) 09/15/24 15:03 MCHC 32.3 g/dL (30-55) 09/15/24 15:03 RDW 14.2 % (12.1-15.1) 09/15/24 15:03 Plt Count 278 10^3/cmm (157-399) 09/15/24 15:03 MPV 9.6 fL (7.4-10.4) 09/15/24 15:03 Neut % (Auto) 67.2 % 09/15/24 15:03 Lymph % (Auto) 25.5 % 09/15/24 15:03 Schuyler % (Auto) 5.5 % 09/15/24 15:03 Eos % (Auto) 0.7 % 09/15/24 15:03 Baso % (Auto) 0.9 % 09/15/24 15:03 Neut # (Auto) 6.73 10^3/uL (1.8-7.7) 09/15/24 15:03 Lymph # (Auto) 2.6 10^3/uL (0.8-4.8) 09/15/24 15:03 Schuyler # (Auto) 0.6 10^3/uL (0.2-0.9) 09/15/24 15:03 Eos # (Auto) 0.1 10^3/uL (0.0-0.8) 09/15/24 15:03 Baso # (Auto) 0.1 10^3/uL (0.0-0.1) 09/15/24 15:03 Nucleated RBC % (auto) 0 % 09/15/24 15:03 Nucleated RBCs # 0.0 /100WBC 09/15/24 15:03 Sodium 138 mmol/L (136-145) 09/15/24 15:03 Potassium 3.8 mmol/L (3.5-5.1) 09/15/24 15:03 Chloride 103 mmol/L (98-107) 09/15/24 15:03 Carbon Dioxide 23 mmol/L (22-29) 09/15/24 15:03 Anion Gap 15.8 (5-19) 09/15/24 15:03 BUN 6 mg/dL (6-20) 09/15/24 15:03 Creatinine 0.6 mg/dL (0.5-0.9) 09/15/24 15:03 GFR Calculation 120.8 mL/min (90-130) 09/15/24 15:03 Glucose 90 mg/dL (65-115) 09/15/24 15:03 Calculated Osmolality 283 mOsm/kg (285-295) L 09/15/24 15:03 Calcium 9.2 mg/dL (8.5-10.5) 09/15/24 15:03 Total Bilirubin 0.4 mg/dL (0.15-1.2) 09/15/24 15:03 AST 20 U/L (0-32) 09/15/24 15:03 ALT 28 U/L (0-33) 09/15/24 15:03 Alkaline Phosphatase 76 U/L (35-105) 09/15/24 15:03 C-Reactive Protein 3.5 mg/L (0.0-4.9) 09/15/24 15:03 Total Protein 7.4 g/dL (6.6-8.7) 09/15/24 15:03 Albumin 4.3 g/dL (3.5-5.2) 09/15/24 15:03 Globulin 3.1 g/dL (1.3-4.6) 09/15/24 15:03 Ser , Semi-Qnt < 1.00 mIU/mL 09/15/24 15:03 Urine Color Yellow (Yellow) 09/15/24 15:55 Urine Appearance Slightly cloudy (CLEAR) 09/15/24 15:55 Urine pH 6.5 (5-7) 09/15/24 15:55 Ur Specific [place] 1.015 (1.005-1.030) 09/15/24 15:55 Urine Protein Negative (Negative) 09/15/24 15:55 Urine Glucose (UA) Negative (Normal) 09/15/24 15:55 Urine Ketones Trace (Negative) 09/15/24 15:55 Urine Blood 2+ (Negative) A 09/15/24 15:55 Urine Nitrate Negative (Negative) 09/15/24 15:55 Urine Bilirubin Negative (Negative) 09/15/24 15:55 Urine Urobilinogen 1.0 mg/dL (Negative) 09/15/24 15:55 Ur Leukocyte Esterase 2+ (Negative) A 09/15/24 15:55 Urine RBC 0-2 /hpf (0-2) 09/15/24 15:55 Urine WBC 21-50 /hpf (0-5) H 09/15/24 15:55 Ur Squamous Epith Cells 0-5 /hpf (0-5) 09/15/24 15:55 Amorphous Sediment Not Reportable 09/15/24 15:55 Urine Bacteria None seen /hpf (NONE) 09/15/24 15:55 Hyaline Casts 0.40 /lpf 09/15/24 15:55 Discharge Plan Discharge Patient Disposition: Home Clinical Impression: Abdominal pain in female, Complex cyst of left ovary Condition: Stable Prescriptions: New tamsulosin 0.4 mg capsule 0.4 mg PO DAILY Qty: 14 0RF ketorolac 10 mg tablet 10 mg PO Q6H PRN (Reason: pain) 5 Days Qty: 20 0RF Discharge Orders: Discharge ED (Routine); Ordered 09/15/24 Ordered By: Glenn Elliott Referrals: Antoinette Peralta FNP [Primary Care Provider, [facility]] Discharge Diet: Usual diet Discharge Activity: Increase activity as tolerated Patient Instructions: Abdominal Pain (ED), Opioid Safety, Pain Management Activity Restrictions/Additional Instructions: Left ovarian cyst noted on the ultrasound today Your labs are grossly unremarkable. Blood was noted in your urine, but no indication of urinary tract infection There is still a possibility of a kidney stone. Tamsulosin has been sent to the pharmacy to begin for the possibility of a kidney stone. Ketorolac has been sent to the pharmacy to help with pain. Please do not take ibuprofen or naproxen while taking this medication Follow-up with primary care, call Wednesday with an update of symptoms and to discuss a recheck Return to the emergency department if any rapid worsening symptoms, onset of fever associated with worsening, and as needed Print Language: Yoruba Coding Level of Care Code ED Dry Sander for Chg Fwd Documented by User: ALVIN Lancaster 09/15/24 18:09 HPI - Female Genitourinary General: Chief complaint: Vaginal Bleeding Stated complaint: vaginal bleeding Time Seen by Provider: 09/15/24 15:05 Related Data Previous Rx's ?Medication ?Instructions ?Recorded ketorolac 10 mg tablet 10 mg PO Q6H PRN pain 5 days #20 09/15/24 tabs tamsulosin 0.4 mg capsule 0.4 mg PO DAILY #14 caps 09/15/24 Allergies Allergy/AdvReac Type Severity Reaction Status Date / Time fluoxetine (From Prozac) Allergy Severe ADR-Halluci Verified 09/15/24 14:46 nating grass pollen Allergy Intermediate ALGY-Nasal Verified 09/15/24 14:46 Discharge ketchup Allergy Intermediate ADR-Gastrointestinal Verified 09/15/24 14:46 Upset gluten Allergy Unknown ADR-Abdominal Verified 09/15/24 14:46 Pain antipsychotics Allergy Unknown ADR-Halluci Uncoded 09/15/24 14:46 nating PFS ED PFSH: Medical History Positive Jeannnie test of left knee Recurrent left knee instability History of methamphetamine use Psychiatric care Mid back pain Depression History of herpes genitalis Posttraumatic stress disorder History of kidney stones Had stone in 08/2015. Seen by Dr. Castro, Uro, at that time Degenerative disc disease Diverticulitis Surgical History Status post colonoscopy H/O esophagogastroduodenoscopy History of laparoscopic cholecystectomy (09/02/16) Performed by Dr. Perea at [facility] in [place], [place] History of breast biopsy (~05/2019) Left H/O dilation and curettage (~02/2018) Dr. Tong @ [facility] Family History Father CAD (coronary artery disease) Hyperlipidemia Grandfather CAD (coronary artery disease) Mother Hypertension Lung disease Psychiatric illness PTSD, anxiety, depression, and anger problems. Brother Psychiatric illness Sister Psychiatric illness Family/Other Suicide Uncle Hyperlipidemia paternal side Grandmother Colon cancer, Onset Age: 80 paternal Other Cancer Diabetes Denies family history of Ovarian cancer Clotting disorder Breast cancer Anesthesia complication Bleeding disorder Uterine cancer Thyroid disease Stroke Social History Smoking and tobacco/nicotine status: never used tobacco/nicotine Substance/Drug Use: former Date of last use: Marijuana Do you think of yourself as: Straight/Heterosexual Course Vital Signs: Vital signs: Vital Signs Temperature 98.1 F 09/15/24 14:41 Pulse Rate 70 09/15/24 14:41 Respiratory Rate 14 09/15/24 14:41 Blood Pressure 114/68 09/15/24 14:41 Pulse Oximetry 99 09/15/24 14:41 Oxygen Delivery Me thod Room Air 09/15/24 14:41 MDM - Female Medical Decision Making Received patient at shift change from DENG Gonzales. Patient with a 3-day history of right lower quadrant/pelvic abdominal pain with vaginal bleeding. Patient does havea history of kidney stones. For her labs, no leukocytosis or indication of anemia. hCG quant is less than 1. No electrolyte, renal, or hepatic abnormalities noted. UA with no bacteria, 2+ blood, 21-50 white blood cells, and 2+ leukocyte esterase. Ultrasound does show a complex cystic structure in the left ovary that may represent a hemorrhagic cyst. Discussed all findings with patient and family. Discussed with patient possibility of a kidney stone and further evaluation for confirmation. Reports that her symptoms are similar to when she has had a kidney stone in the past. Patient declines CT scan at this time. Will proceed with tamsulosin and ketorolac due to concern of a kidney stone. Encourage patient to continue to monitor symptoms closely. Recommend follow-up with primary care, call Wednesday with an update of symptoms and to discuss a recheck. Return precautions provided. Patient states understanding and has no further questions or concerns at this time. Medical Records I reviewed the patient's medical records. Lab Data I reviewed the patient's lab results. 09/15/24 15:03 09/15/24 15:03 Radiology Impressions Transvaginal US 09/15/24 16:29 IMPRESSION: Preserved flow to both ovaries. Complex cystic structure in the left ovary may represent a hemorrhagic cyst and fits O-RADS 2 criteria. Short-term 3 to six-month follow up can be obtained. Laboratory Results WBC 10.02 10^3/uL (3.29-11.43) 09/15/24 15:03 RBC 4.42 10^6/uL (3.85-5.65) 09/15/24 15:03 Hgb 14.10 g/dL (11.27-16.99) 09/15/24 15:03 Hct 43.7 % (36-47) 09/15/24 15:03 MCV 98.9 fl (85-98) H 09/15/24 15:03 MCH 31.9 pg (27-33) 09/15/24 15:03 MCHC 32.3 g/dL (30-55) 09/15/24 15:03 RDW 14.2 % (12.1-15.1) 09/15/24 15:03 Plt Count 278 10^3/cmm (157-399) 09/15/24 15:03 MPV 9.6 fL (7.4-10.4) 09/15/24 15:03 Neut % (Auto) 67.2 % 09/15/24 15:03 Lymph % (Auto) 25.5 % 09/15/24 15:03 Schuyler % (Auto) 5.5 % 09/15/24 15:03 Eos % (Auto) 0.7 % 09/15/24 15:03 Baso % (Auto) 0.9 % 09/15/24 15:03 Neut # (Auto) 6.73 10^3/uL (1.8-7.7) 09/15/24 15:03 Lymph # (Auto) 2.6 10^3/uL (0.8-4.8) 09/15/24 15:03 Schuyler # (Auto) 0.6 10^3/uL (0.2-0.9) 09/15/24 15:03 Eos # (Auto) 0.1 10^3/uL (0.0-0.8) 09/15/24 15:03 Baso # (Auto) 0.1 10^3/uL (0.0-0.1) 09/15/24 15:03 Nucleated RBC % (auto) 0 % 09/15/24 15:03 Nucleated RBCs # 0.0 /100WBC 09/15/24 15:03 Sodium 138 mmol/L (136-145) 09/15/24 15:03 Potassium 3.8 mmol/L (3.5-5.1) 09/15/24 15:03 Chloride 103 mmol/L (98-107) 09/15/24 15:03 Carbon Dioxide 23 mmol/L (22-29) 09/15/24 15:03 Anion Gap 15.8 (5-19) 09/15/24 15:03 BUN 6 mg/dL (6-20) 09/15/24 15:03 Creatinine 0.6 mg/dL (0.5-0.9) 09/15/24 15:03 GFR Calculation 120.8 mL/min (90-130) 09/15/24 15:03 Glucose 90 mg/dL (65-115) 09/15/24 15:03 Calculated Osmolality 283 mOsm/kg (285-295) L 09/15/24 15:03 Calcium 9.2 mg/dL (8.5-10.5) 09/15/24 15:03 Total Bilirubin 0.4 mg/dL (0.15-1.2) 09/15/24 15:03 AST 20 U/L (0-32) 09/15/24 15:03 ALT 28 U/L (0-33) 09/15/24 15:03 Alkaline Phosphatase 76 U/L (35-105) 09/15/24 15:03 C-Reactive Protein 3.5 mg/L (0.0-4.9) 09/15/24 15:03 Total Protein 7.4 g/dL (6.6-8.7) 09/15/24 15:03 Albumin 4.3 g/dL (3.5-5.2) 09/15/24 15:03 Globulin 3.1 g/dL (1.3-4.6) 09/15/24 15:03 Ser , Semi-Qnt < 1.00 mIU/mL 09/15/24 15:03 Urine Color Yellow (Yellow) 09/15/24 15:55 Urine Appearance Slightly cloudy (CLEAR) 09/15/24 15:55 Urine pH 6.5 (5-7) 09/15/24 15:55 Ur Specific [place] 1.015 (1.005-1.030) 09/15/24 15:55 Urine Protein Negative (Negative) 09/15/24 15:55 Urine Glucose (UA) Negative (Normal) 09/15/24 15:55 Urine Ketones Trace (Negative) 09/15/24 15:55 Urine Blood 2+ (Negative) A 09/15/24 15:55 Urine Nitrate Negative (Negative) 09/15/24 15:55 Urine Bilirubin Negative (Negative) 09/15/24 15:55 Urine Urobilinogen 1.0 mg/dL (Negative) 09/15/24 15:55 Ur Leukocyte Esterase 2+ (Negative) A 09/15/24 15:55 Urine RBC 0-2 /hpf (0-2) 09/15/24 15:55 Urine WBC 21-50 /hpf (0-5) H 09/15/24 15:55 Ur Squamous Epith Cells 0-5 /hpf (0-5) 09/15/24 15:55 Amorphous Sediment Not Reportable 09/15/24 15:55 Urine Bacteria None seen /hpf (NONE) 09/15/24 15:55 Hyaline Casts 0.40 /lpf 09/15/24 15:55 All radiology interpretation(s) finalized by discharge Discharge Plan Discharge Patient Disposition: Home Clinical Impression: Abdominal pain in female, Complex cyst of left ovary Condition: Stable Prescriptions: New tamsulosin 0.4 mg capsule 0.4 mg PO DAILY Qty: 14 0RF ketorolac 10 mg tablet 10 mg PO Q6H PRN (Reason: pain) 5 Days Qty: 20 0RF Discharge Orders: Discharge ED (Routine); Ordered 09/15/24 Ordered By: Glenn Elliott Referrals: Antoinette Peralta FNP [Primary Care Provider, Family Practice] Discharge Diet: Usual diet Discharge Activity: Increase activity as tolerated Patient Instructions: Abdominal Pain (ED), Opioid Safety, Pain Management Activity Restrictions/Additional Instructions: Left ovarian cyst noted on the ultrasound today Your labs are grossly unremarkable. Blood was noted in your urine, but no indication of urinary tract infection There is still a possibility of a kidney stone. Tamsulosin has been sent to the pharmacy to begin for the possibility of a kidney stone. Ketorolac has been sent to the pharmacy to help with pain. Please do not take ibuprofen or naproxen while taking this medication Follow-up with primary care, call Wednesday with an update of symptoms and to discuss a recheck Return to the emergency department if any rapid worsening symptoms, onset of fever associated with worsening, and as needed Print Language: Yoruba Coding Level of Care Code ED Dry Sander for Kacy Ambrosio
[2024-09-15 16:13] LABS: Bacteria Urine None Seen /hpf; RBC Urine 0-2 /hpf (0-2); Squamous Epithelial Cell Urine 0-5 /hpf (0-5); WBC Urine 21-50 /hpf (0-5)
[2024-09-15 16:16] LABS: C Reactive Protein 3.5 mg/L (0.0-4.9)
--- NOTE | 2024-09-15 16:29 | USR_ITS ---
PROCEDURE INFORMATION: Exam: US Pelvis, Transvaginal, Non-Obstetric Exam date and time: 09/15/2024 5:05 PM Age: 24 years old Clinical indication: Pelvic pain; Prior surgery; Surgery date: 6+ months; Surgery type: Unsure of dates. HX of d&c; Additional info: R pelvic pain TECHNIQUE: Imaging protocol: Real-time transvaginal pelvic (non-obstetric) ultrasound with image documentation. Transvaginal imaging was used for better evaluation of the endometrium, adnexa, and/or cervix. COMPARISON: US OB transvaginal [facility] 05/19/2021 9:11 AM FINDINGS: Uterus: Nabothian cysts. The uterus measures 3.8 x 4.2 cm in height and width. Right ovary/adnexa: The right ovary measures 2.6 x 2.0 x 1.9 cm. There is preserved flow to the right ovary. Left ovary/adnexa: The left ovary measures 2.2 x 2.0 x 1.8 cm. There is preserved flow to the left ovary. There is a slightly complex cyst in the left ovary measuring 1.3 x 1.1 x 1.2 cm and may represent a hemorrhagic cyst. Urinary bladder: Urinary bladder is limited. Intraperitoneal space: There is a small amount of free fluid in the pelvic cul-de-sac. US/US transvaginal [id number] IMPRESSION: Preserved flow to both ovaries. Complex cystic structure in the left ovary may represent a hemorrhagic cyst and fits O-RADS 2 criteria. Short-term 3 to six-month follow up can be obtained.
[2024-09-15 16:49] LABS: Add Urine Microscopic? YES; Bilirubin Urine Negative (Negative); Blood Urine 2+ (Negative); Glucose Urine UA Negative (Normal); Ketones Urine Trace (Negative); Leukocyte Esterase Urine 2+ (Negative); Nitrate Urine Negative (Negative); Protein Urine Negative (Negative); Specific Gravity, Urine 1.015 (1.005-1.030); Urine Color Yellow (Yellow); pH Urine 6.5 (5-7)
[2024-09-15 16:54] LABS: Urine Appearance Slightly Cloudy (CLEAR)
[2024-09-15 16:55] LABS: Add Urine Culture? Yes
== END 2024-09-15 18:16 | disposition home or self-care (01) ==
PROVIDERS: Emergency Medicine; Emergency Provider Physician Assistant; PCP Registered Nurse
DX: R10.9 Unspecified abdominal pain (principal); N83.292 Other ovarian cyst, left side
CPT/HCPCS: 36415; 76830; 80053; 81001; 84702; 85025; 86140; 87077; 87086; 87186; 99284

== ENCOUNTER 2024-10-16 10:08 | Emergency (ER) | payer SELFPAY ==
--- NOTE | 2024-10-16 10:10 | XR_ITS ---
WS: [id number] XR foot RT min 3V* [id number] REASON FOR EXAM: pain FINDINGS: No significant soft tissue swelling or radiopaque foreign body. No fracture or focal bone lesion. No periosteal reaction or bone erosion. Joint spaces of the forefoot, midfoot, and hindfoot are intact and well preserved. XR/XR foot RT min 3V* [id number] IMPRESSION: No acute bone or joint abnormality as above.
[2024-10-16 10:50] VITALS: BP 124/95; PULSE 82; RESP 18; TEMP 37; O2SAT 96; BMI 33.2
--- NOTE | 2024-10-16 10:59 | XR_ITS ---
WS: [id number] XR ankle RT min 3V* [id number] REASON FOR EXAM: injury FINDINGS: Soft tissue swelling over the lateral malleolus. No radiopaque soft tissue foreign body. No fracture identified. Joint spaces of the right ankle are intact and well preserved. XR/XR ankle RT min 3V* [id number] IMPRESSION: No acute abnormality.
--- NOTE | 2024-10-16 11:04 | W.ED.EXTPRO ---
HPI - Extremity Problem General: Chief complaint: Extremity Injury, Lower Stated complaint: R foot injury Time Seen by Provider: 10/16/24 10:27 Source: patient Mode of arrival: ambulatory Limitations: no limitations History of Present Illness: 24-year-old female states she got drunk last night and is unsure what happened when she woke up this morning she is having severe right foot and ankle pain states she is not able to bear weight on it rates her pain an 8 out of 10 denies any pain elsewhere. Associated symptoms: Deny chest pain, fever(s) or rash Related Data Previous Rx's ?Medication ?Instructions ?Recorded tamsulosin 0.4 mg capsule 0.4 mg PO DAILY #14 caps 09/15/24 naproxen 500 mg tablet (Naprosyn) 500 mg PO BID PRN pain #20 tabs 10/16/24 Allergies Allergy/AdvReac Type Severity Reaction Status Date / Time fluoxetine (From Prozac) Allergy Severe ADR-Halluci Verified 09/15/24 14:46 nating grass pollen Allergy Intermediate ALGY-Nasal Verified 09/15/24 14:46 Discharge ketchup Allergy Intermediate ADR-Gastrointestinal Verified 09/15/24 14:46 Upset gluten Allergy Unknown ADR-Abdominal Verified 09/15/24 14:46 Pain antipsychotics Allergy Unknown ADR-Halluci Uncoded 09/15/24 14:46 nating Review of Systems Const: Denies: fever(s), chills, body aches or change in appetite ENMT: Denies: throat pain or dental pain Card: Denies: chest pain Resp: Denies: dyspnea GI: Denies: abdominal pain, nausea, vomiting or diarrhea Musc: Reports: extremity pain; Denies: neck pain or back pain Skin/Breast: Denies: rash Neuro: Denies: headache(s) PFS ED PFSH: Medical History Positive Jeannine test of left knee Recurrent left knee instability History of methamphetamine use Psychiatric care Mid back pain Depression History of herpes genitalis Posttraumatic stress disorder History of kidney stones Had stone in 08/2015. Seen by Dr. Castro Uro, at that time Degenerative disc disease Diverticulitis Surgical History Status post colonoscopy H/O esophagogastroduodenoscopy History of laparoscopic cholecystectomy (09/02/16) Performed by Dr. Perea at [facility] in [place], [place] History of breast biopsy (~05/2019) Left H/O dilation and curettage (~02/2018) Dr. Tong @ [facility] Family History Father CAD (coronary artery disease) Hyperlipidemia Grandfather CAD (coronary artery disease) Mother Hypertension Lung disease Psychiatric illness PTSD, anxiety, depression, and anger problems. Brother Psychiatric illness Sister Psychiatric illness Family/Other Suicide Uncle Hyperlipidemia paternal side Grandmother Colon cancer, Onset Age: 80 paternal Other Cancer Diabetes Denies family history of Ovarian cancer Clotting disorder Breast cancer Anesthesia complication Bleeding disorder Uterine cancer Thyroid disease Stroke Social History Smoking and tobacco/nicotine status: never used tobacco/nicotine Substance/Drug Use: former Date of last use: Marijuana Do you think of yourself as: Straight/Heterosexual Physical Exam Const: COMMON NORMALS: no acute distress, patient oriented x3 and healthy appearing HENMT: COMMON NORMALS: normocephalic and atraumatic HEAD & SCALP: normocephalic and atraumatic Neck/C-Spine: COMMON NORMALS: full ROM and supple Chest: COMMONS NORMALS: normal inspection of the chest Resp: COMMON NORMALS: normal respiratory effort Cardio: COMMON NORMALS: regular rate RATE: regular rate Extremity: NARRATIVE EXTREMITY EXAM: Tenderness to right foot no obvious deformities distal pulses intact Neuro: COMMON NORMALS: patient oriented x3, moves all extremities and no focal motor deficits Psych: COMMON NORMALS: mental status grossly normal, Normal thought process present and cooperative THOUGHT PROCESS: Normal thought process present Skin: COMMON NORMALS: no rashes or lesions noted and no wounds GENERAL SKIN EXAM: no rashes or lesions noted Course Vital Signs: Vital signs: Vital Signs Temperature 98.6 F 10/16/24 10:50 Pulse Rate 77 10/16/24 11:12 Respiratory Rate 18 10/16/24 10:50 Blood Pressure 130/80 10/16/24 11:12 Pulse Oximetry 95 10/16/24 11:12 Oxygen Delivery Me thod Room Air 10/16/24 11:12 MDM - Extremity (Nontraumatic) Medical Decision Making 24-year-old female who presents here with a likely foot sprain imaging here shows no fracture she has good distal pulses she is stable for discharge follow-up PCP return if worsening. Medical Records I reviewed the patient's medical records. Lab Data Radiology Impressions Foot X-Ray 10/16/24 10:10 IMPRESSION: No acute bone or joint abnormality as above. Ankle X-Ray 10/16/24 10:59 IMPRESSION: No acute abnormality. All radiology interpretation(s) finalized by discharge Discharge Plan Discharge Patient Disposition: Home Clinical Impression: Right foot sprain Condition: Stable Prescriptions: New naproxen [Naprosyn] 500 mg tablet 500 mg PO BID PRN (Reason: pain) Qty: 20 0RF No Action tamsulosin 0.4 mg capsule 0.4 mg PO DAILY Qty: 14 0RF Discharge Orders: Discharge ED (Routine); Ordered 10/16/24 Ordered By: Awilda Montes Referrals: Gerardo Bruno DPM [Physician, Podiatry] - 4-7 days Antoinette Peralta FNP [Primary Care Provider, Family Practice] Discharge Diet: Advance as tolerated Discharge Activity: Resume usual activity Patient Instructions: Foot Sprain (ED) Stand Alone Forms: Work/School Release Print Language: Micronesian Coding Level of Care Code ED Fine Unhairer for Kacy Ambrosio
[2024-10-16] MEDS: HYDROcodone-acetaminophen 7.5-325 mg Tablet 1 TAB PO (11:11)
[2024-10-16 11:12] VITALS: BP 130/80; PULSE 77; O2SAT 95
[2024-10-16 11:57] VITALS: BP 137/83; PULSE 72; O2SAT 96
--- NOTE | 2024-10-18 07:41 | DCPLANNER ---
messaged podiatry for er f/u
== END 2024-10-16 11:58 | disposition home or self-care (01) ==
PROVIDERS: Emergency Provider Emergency Medicine; PCP Registered Nurse
DX: S93.601A Unspecified sprain of right foot, initial encounter (principal); X58.XXXA Exposure to other specified factors, initial encounter
CPT/HCPCS: 73610; 73630; 99283; E0114; J9999

== ENCOUNTER 2024-12-08 00:45 | Emergency (ER) | payer SELFPAY ==
--- OUTSIDE RECORDS SUMMARY | 2022-10-27 03:00 | XMS_ITS | Continuity of Care Document ---
Author Organization [facility] Address [id number] [address] Phone Care Team Providers Care Steward/Stewardess Third Class Name Role Phone Yovanny De La Rosa DDS Unavailable Unavailable Allergies, Adverse Reactions, Alerts Substance Reaction Status Criticality ketchup Active No Information Medications Medication Instructions Dosage Effective Dates (start - stop) Status Comments amoxicillin 500 mg capsule take 1 capsule by oral route every 8 hours 500 MG - Active hydroxyzine HCl 50 mg/mL intramuscular solution inject 1 milliliter by intramuscular route every 6 hours as needed 50 MG - Active trazodone 50 mg tablet take 1 tablet by oral route every day at bedtime 50 MG - Active prazosin 2 mg capsule take 1 capsule by oral route 3 times every day 2 MG - Active Procedures Procedure Date No Work Today/No Charge Treatment Plan Complete Limited Oral Evaluation Problem Focused Intraoral Periapical First Film Extraction, Erupted Tooth Or Exposed [place] t (Elevati EDR Approval Note Limited Oral Evaluation Problem Focused Extraction, Erupted Tooth Or Exposed [place] t (Elevati Extraction, Erupted Tooth Or Exposed [place] t (Elevati Intraoral Periapical First Film Intraoral Periapical Each Additional Film Intraoral Periapical Each Additional Film EDR Approval Note EDR Approval Note Extraction, Erupted Tooth Or Exposed [place] t (Elevati EDR Approval Note EDR Approval Note Limited Oral Evaluation Problem Focused Intraoral Periapical First Film Intraoral Periapical Each Additional Film Intraoral Periapical Each Additional Film Extraction, Erupted Tooth Or Exposed [place] t (Elevati Extraction, Erupted Tooth Or Exposed [place] t (Elevati Treatment Plan Complete Treatment Plan Complete EDR Approval Note Duplicate Encounter Advance Directives Directive Yes / No Effective Date File Name No Information Encounters Encounter Description Practice Location Reason(s) For Visit Diagnoses Date Provider Providers Copied on Encounter [facility], [id number]- [place], [place], [address], [place] tel:[phone] [facility] Encounter for dental exam and cleaning w/o abnormal findings 3 Estrella Hairston. [address] [place], [place], [address], [place]. tel:[phone] Referring Provider: Yovanny Harvey, [address] [place], [address]. tel:[phone] [facility], [id number]- [place], [place], [address], [place] tel:[phone] [facility] Encounter for dental exam and cleaning w/o abnormal findings 1 Estrella Hairston. [address] [place], [place], [address], [place]. tel:[phone] Referring Provider: Yovanny Harvey, [address] [place], [address]. tel:[phone] [facility], [id number]- [place], [place], [address], [place] tel:[phone] [facility] Encounter for dental exam and cleaning w/o abnormal findings 1 Rupal Lee. [address] [place], [place], [address], [place]. tel:[phone] Referring Provider: Jesus Goldsmith, [address] [place], [address]. tel:[phone] 1695 [facility], [id number]- [place], [place], [address], [place] tel:[phone] [facility] Encounter for dental exam and cleaning w/o abnormal findings Aug- 0 No Information [facility], [id number]- [place], [place], [address], [place] tel:[phone] [facility] Encounter for dental exam and cleaning w/o abnormal findings Aug- 0 Ailyn Boothe. [address] [place], [address], [place]. tel:[phone] Referring Provider: Tl Robertson, [address] [place], [address]. tel:[phone] 4504 [facility], [id number]- [place], [place], [address], [place] tel:[phone] [facility] No Information Aug- 0 Vinita Bush. [address] [place], [address], [place]. tel:[phone] Referring Provider: Eleazar Rodriguez, [address] [place], [address]. tel:[phone] Family History Family Member Type Diagnosis Age At Onset No Information Payers Payer name Insurance type Covered alliance party ID Juju parisi(benita) Candice [facility] CI [id number] Social History Type Description Quantity Date Captured Comments Alcohol Use Details No Caffeine Use Details Unknown Tobacco Use Status Smoking Status No Information Sex Female Sexual Orientation Bisexual Gender Identity Female Chief Complaint And Reason For Visit No Information Reason For Referral Reason For Referral No Information Plan Of Treatment Date Type Action Status Goal Tobacco cessation counseling completed Goal Tobacco cessation counseling completed Goal Tobacco cessation counseling completed Goal Tobacco cessation counseling completed History Of Present Illness Encounter Date Complaint History Of Prese nt Illness No Information Functional Status Date Functional Assessmen t No Information Instructions Date Instruction Additional Infor sandra Lifestyle education Related to D ental Examination Lifestyle education Related to D ental Examination Lifestyle education Related to D ental Examination Lifestyle education Related to D ental Examination Assessments Type Assessment Date No Information Patient Care Teams Name Effective Dates (start - stop) Status Members No Information
[2024-12-08 00:51] VITALS: BP 123/82; PULSE 60; RESP 16; TEMP 36.7; O2SAT 96; BMI 5342.8
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
--- NOTE | 2024-12-08 00:55 | ED_ITS ---
HPI - URI/Sore Throat General: Chief Complaint: Upper Respiratory Infection Stated Complaint: Possible Strepthroat Time Seen by Provider: 12/08/24 00:47 Source: patient Mode of arrival: ambulatory Limitations: no limitations History of Present Illness: Patient is a 24-year-old female who presents to the ED today with a complaint of a sore throat. Symptoms started this morning. She is still able to eat and drink. States she has a history of strep throat and is concerned about this. No fevers. She has no other URI-like symptoms. She does not complain of any dental pain. No neck pain or difficulty swallowing. MD elicited complaint: other (sore throat) Consistency: constant Severity: moderate Able to tolerate fluids by mouth: Yes Associated symptoms: Deny abdominal pain, chills, ear or mastoid pain, fever(s), headache(s), nasal congestion or sinus pain Treatments prior to arrival: none Related Data Previous Rx's ?Medication ?Instructions ?Recorded tamsulosin 0.4 mg capsule 0.4 mg PO DAILY #14 caps 07/11 naproxen 500 mg tablet (Naprosyn) 500 mg PO BID PRN pa in #20 tabs 10/16/24 Allergies Allergy/AdvReac Type Severity Reaction Status Date / Time fluoxetine (From Prozac) Allergy Severe ADR-Halluci Verified 12/08/24 00:54 nating grass pollen Allergy Intermediate ALGY-Nasal Verified 12/08/24 00:54 Discharge ketchup Allergy Intermediate ADR-Gastrointestinal Verified 12/08/24 00:54 Upset gluten Allergy Unknown ADR-Abdominal Verified 12/08/24 00:54 Pain antipsychotics Allergy Unknown ADR-Halluci Uncoded 12/08/24 00:54 nating Review of Systems Const: Denies: fever(s), chills, body aches, fatigue or malaise Eyes: Denies: eye discharge ENMT: Reports: throat pain and odynophagia; Denies: hoarseness, mouth pain, swelling of lips/tongue, oral sores, bleeding gums, dental pain, ear or mastoid pain, nasal discharge, nasal congestion or sinus pain Resp: Denies: chest congestion GI: Denies: abdominal pain Musc: Denies: neck pain Skin/Breast: Denies: rash Neuro: Denies: headache(s) PFSH ED PFSH: Medical History Positive Jeannine test of left knee Recurrent left knee instability History of methamphetamine use Psychiatric care Mid back pain Depression History of herpes genitalis Posttraumatic stress disorder History of kidney stones Had stone in 08/2015. Seen by Dr. Castro Uro, at that time Degenerative disc disease Diverticulitis Surgical History Status post colonoscopy H/O esophagogastroduodenoscopy History of laparoscopic cholecystectomy (09/02/16) Performed by Dr. Perea at [facility] in [place], [place] History of breast biopsy (~05/2019) Left H/O dilation and curettage (~02/2018) Dr. Tong @ [facility] Family History Father CAD (coronary artery disease) Hyperlipidemia Grandfather CAD (coronary artery disease) Mother Hypertension Lung disease Psychiatric illness PTSD, anxiety, depression, and anger problems. Brother Psychiatric illness Sister Psychiatric illness Family/Other Suicide Uncle Hyperlipidemia paternal side Grandmother Colon cancer, Onset Age: 80 paternal Other Cancer Diabetes Denies family history of Ovarian cancer Clotting disorder Breast cancer Anesthesia complication Bleeding disorder Uterine cancer Thyroid disease Stroke Social History Smoking and tobacco/nicotine status: never used tobacco/nicotine Substance/Drug Use: former Date of last use: Marijuana Do you think of yourself as: Straight/Heterosexual Physical Exam Const: COMMON NORMALS: no acute distress, average body habitus, no limitations, healthy appearing, alert and well nourished HENMT: FACE & SINUS: normal facial exam MOUTH: Normal oral and palatal mucosa present, lip normal, tongue normal and Normal salivary glands and ducts present TEETH & GINGIVA: Yes other (extremely poor dentition) THROAT: tonsils normal and posterior oropharynx abnormal erythema Neck/C-Spine: COMMON NORMALS: full ROM and no lymphadenopathy GENERAL: Yes normal visual inspection, No anterior neck swelling and No submandibular swelling Resp: COMMON NORMALS: normal respiratory effort and clear to auscultation bilaterally AUSCULTATION: clear to auscultation bilaterally Cardio: COMMON NORMALS: regular rate and regular rhythm RATE: regular rate RHYTHM: regular rhythm GI: COMMON NORMALS: No hepatosplenomegaly present PALPATION: Yes No hep atosplenomegaly present Neuro: SENSORIUM/ORIENTATION: Yes alert Skin: COMMON NORMALS: no rashes or lesions noted GENERAL SKIN EXAM: no rashes or lesions noted Course Vital Signs: Vital signs: Vital Signs Temperature 98.0 F 12/08/24 00:51 Pulse Rate 60 12/08/24 00:51 Respiratory Rate 16 12/08/24 00:51 Blood Pressure 123/82 12/08/24 00:51 Pulse Oximetry 96 12/08/24 00:51 Oxygen Delivery Me thod Room Air 12/08/24 00:51 MDM - URI/Sore Throat Medical Decision Making Patient clinically appears in no acute distress. Her vital signs are stable. Strep was negative. Patient was given instructions on treatment for a viral pharyngitis. Return to ED precautions discussed. Medical Records I reviewed the patient's medical records. Lab Data I reviewed the patient's lab results. Laboratory Results Group A Strep Rapid Negative (Negative) 12/08/24 00:57 No radiology studies performed this visit Discharge Plan Discharge Patient Disposition: Home Clinical Impression: Acute viral pharyngitis Condition: Stable Prescriptions: No Action naproxen [Naprosyn] 500 mg tablet 500 mg PO BID PRN (Reason: pain) Qty: 20 0RF tamsulosin 0.4 mg capsule 0.4 mg PO DAILY Qty: 14 0RF Discharge Orders: Discharge ED (Routine); Ordered 12/08/24 Ordered By: Miriam Gonzales Referrals: Antoinette Peralta, [facility]TER [Primary Care Provider, Family Practice] Patient Instructions: Pharyngitis (ED), Patient Portal & Connie Instructions Activity Restrictions/Additional Instructions: As we discussed, your strep is negative today. We discussed conservative therapies to help with the discomfort of your throat. You need to return to the emergency department for difficulty eating or drinking, swallowing or controlling your saliva, drooling, worsening pain, generally feeling worse or unwell or any other concerns you may have. I hope you begin to feel better soon. Print Language: Djiboutian Coding Level of Care Code ED Human Services Manager for Kacy Ambrosio
[2024-12-08 01:07] LABS: Rapid Strep A Test Negative (Negative)
[2024-12-08 01:32] VITALS: BP 123/82; PULSE 61; O2SAT 95
== END 2024-12-08 01:33 | disposition home or self-care (01) ==
PROVIDERS: Emergency Provider Physician Assistant; PCP Registered Nurse
DX: J02.9 Acute pharyngitis, unspecified (principal)
CPT/HCPCS: 87081; 87880; 99283

== ENCOUNTER 2025-01-13 01:24 | Emergency (ER) | payer SELFPAY ==
--- OUTSIDE RECORDS SUMMARY | 2022-10-27 03:00 | XMS_ITS | Continuity of Care Document ---
Author Organization [facility] Address [id number][place] [address] Phone Care Team Providers Care Termite Treater Helper Name Role Phone Yovanny De La Rosa [...] Diagnoses Date Provider Providers Copied on Encounter [facility], [id number]- [place], [place], [address], [place] tel:[phone] [facility] Encounter for dental exam and cleaning w/o abnormal findings 3 Estrella Hairston. [address] [place], [place], [address], [place]. tel:[phone] Referring Provider: Yovanny Harvey, [address] [place], [address]. tel:[phone] 4500 [facility], [id number]- [place], [place], [address], [place] tel:[phone] [facility] Encounter for dental exam and cleaning w/o abnormal findings 1 Estrella Hairston. [address] [place], [place], [address], [place]. tel:[phone] Referring Provider: Yovanny Harvey, [address] [place], [address]. tel:[phone] 8911 [facility], [id number]- [place], [place], [address], [place] tel:[phone] [facility] Care Encounter for dental exam and cleaning w/o abnormal findings 1 Rupal Lee. [address] [place], [place], [address], [place]. tel:[phone] Referring Provider: Jesus Goldsmith, [address] [place], [address]. tel:[phone] 3960 [facility], [id number]- [place], [place], [address], [place] tel:[phone] [facility] Encounter for dental exam and cleaning w/o abnormal findings Aug- 0 No Information [facility], [id number]- [place], [place], [address], [place] tel:[phone] [facility] Encounter for dental exam and cleaning w/o abnormal findings Aug- 0 Ailyn Boothe. [address] [place], [address], [place]. tel:[phone] Referring Provider: Tl Robertson, [address] [place], [address]. tel:[phone] 0710 [facility], [id number]- [place], [place], [address], [place] tel:[phone] [facility] No Information Aug- 0 Vinita Bush. [address] [place], [address], [place]. tel:[phone] Referring Provider: Eleazar Rodriguez, [address] [place], [address]. tel:[phone] Family History Family Member Type Diagnosis Age At Onset No Information Payers Payer name Insurance type Covered constitution party ID Juju parisi(benita) Candice [facility] [place] [id number] Social History Type Description Quantity Date Captured [...]
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
[2025-01-13 01:35] VITALS: BP 124/73; PULSE 62; RESP 20; TEMP 36.9; O2SAT 98; BMI 32.8
--- NOTE | 2025-01-13 04:30 | ED_ITS ---
HPI - Skin/Abscess/Foreign Bdy General: Chief complaint: Skin/Abscess/Foreign Body Stated complaint: Boil on Left Breast Time Seen by Provider: 01/13/25 04:24 History of Present Illness: Patient is a 24-year-old female who presents with a skin lesion on her left breast that has been present for approximately 5-6 months. She reports that the lesion has been draining consistently during this time, requiring her to express fluid from it daily. The lesion has never completely resolved or drained completely. Over the past week, the patient notes that the lesion has started to 'cave in' forming a hole, and as of last night, she began experiencing a burning sensation. The area is tender to touch, which appears to be a new development. Patient has attempted to treat the area with triple antibiotic ointment without improvement. She denies fever or other systemic symptoms. Related Data Previous Rx's ?Medication ?Instructions ?Recorded tamsulosin 0.4 mg capsule 0.4 mg PO DAILY #14 caps 07/11 naproxen 500 mg tablet (Naprosyn) 500 mg PO BID PRN pa in #20 tabs 10/16/24 diclofenac sodium 50 mg 50 mg PO TID PRN pain #14 ta bs 01/13/25 tablet,delayed release sulfamethoxazole 800 1 tab PO BID #20 tabs mg-trimethoprim 160 mg tablet (Bactrim DS) Allergies Allergy/AdvReac Type Severity Reaction Status Date / Time fluoxetine (From Prozac) Allergy Severe ADR-Halluci Verified 12/08/24 00:54 nating grass pollen Allergy Intermediate ALGY-Nasal Verified 12/08/24 00:54 Discharge ketchup Allergy Intermediate ADR-Gastrointestinal Verified 12/08/24 00:54 Upset gluten Allergy Unknown ADR-Abdominal Verified 12/08/24 00:54 Pain antipsychotics Allergy Unknown ADR-Halluci Uncoded 12/08/24 00:54 nating [facility] ED PFS: Medical History (Updated 01/13/25 @ 04:33 by Sridhar Bejarano DO) Positive Jeannine test of left knee Recurrent left knee instability History of methamphetamine use Psychiatric care Mid back pain Depression History of herpes genitalis Posttraumatic stress disorder History of kidney stones Had stone in 08/2015. Seen by Dr. Castro, Uro, at that time Degenerative disc disease Diverticulitis Surgical History Status post colonoscopy H/O esophagogastroduodenoscopy History of laparoscopic cholecystectomy (09/02/16) Performed by Dr. Perea at [facility] in [place], [place] History of breast biopsy (~05/2019) Left H/O dilation and curettage (~02/2018) Dr. Tong @ [facility] Family History Father CAD (coronary artery disease) Hyperlipidemia Grandfather CAD (coronary artery disease) Mother Hypertension Lung disease Psychiatric illness PTSD, anxiety, depression, and anger problems. Brother Psychiatric illness Sister Psychiatric illness Family/Other Suicide Uncle Hyperlipidemia paternal side Grandmother Colon cancer, Onset Age: 80 paternal Other Cancer Diabetes Denies family history of Ovarian cancer Clotting disorder Breast cancer Anesthesia complication Bleeding disorder Uterine cancer Thyroid disease Stroke Social History Smoking and tobacco/nicotine status: never used tobacco/nicotine Substance/Drug Use: former Date of last use: Marijuana Do you think of yourself as: Straight/Heterosexual Physical Exam Const: COMMON NORMALS: no acute distress GENERAL APPEARANCE: cooperative; not ill appearing and not frail appearing HENMT: COMMON NORMALS: normocephalic, atraumatic and Normal external nose present HEAD & SCALP: normocephalic and atraumatic FACE & SINUS: normal facial exam and face symmetric NOSE: Normal external nose present Eye: COMMON NORMALS: Equal, round and reactive pupils present and EOMs intact bilaterally PUPIL: Yes Equal, round and reactive pupils present Neck/C-Spine: GENERAL: Yes trachea midline Chest: CHEST: Yes Symmetrical chest wall rise Resp: COMMON NORMALS: normal respiratory effort, No retractions, No use of accessory muscles and clear to auscultation bilaterally AUSCULTATION: clear to auscultation bilaterally Cardio: COMMON NORMALS: regular rate and regular rhythm RATE: regular rate RHYTHM: regular rhythm Neuro: CHERRY COMA SCALE: document GCS findings Cherry coma scale eye opening: Spontaneous [place] coma scale verbal response: Orientated Cherry coma scale motor response: Obey commands Cherry coma scale total score: 15 SENSORY EXAM: Yes extremities (intact) Psych: COMMON NORMALS: speech normal SPEECH: Yes normal speech Skin: COMMON NORMALS: no rashes or lesions noted NARRATIVE SKIN EXAM: Signs of hidradenitis. TIVA present. Small punctate draining lesion in the inferior left breast. Minimal cellulitis. Mild tenderness. Minimal fluctuance. It is 2 mm in diameter. GENERAL SKIN EXAM: no rashes or lesions noted Course Vital Signs: Vital signs: Vital Signs Temperature 98.4 F 01/13/25 01:35 Pulse Rate 62 01/13/25 01:35 Respiratory Rate 20 H 01/13/25 01:35 Blood Pressure 124/73 01/13/25 01:35 Pulse Oximetry 98 01/13/25 01:35 MDM - Skin/Abscess/Foreign Bdy Medicial Decision Making Small draining hidradenitis type abscess. Some clear fluid expelled from the wound. Wound is very small and superficial, not felt clinically amenable to incision and drainage. She will be placed on antibiotics. Outpatient follow- up. Return for new or worsening symptoms. No radiology studies performed this visit Discharge Plan Discharge Patient Disposition: Home Clinical Impression: Hidradenitis, Cellulitis, Abscess of breast Condition: Stable Prescriptions: New sulfamethoxazole-trimethoprim [Bactrim DS] 800-160 mg tablet 1 tab PO BID Qty: 20 0RF diclofenac sodium 50 mg tablet,delayed release (DR/EC) 50 mg PO TID PRN (Reason: pain) Qty: 14 0RF No Action naproxen [Naprosyn] 500 mg tablet 500 mg PO BID PRN (Reason: pain) Qty: 20 0RF tamsulosin 0.4 mg capsule 0.4 mg PO DAILY Qty: 14 0RF Discharge Orders: Discharge ED (Routine); Ordered 01/13/25 Ordered By: Sridhar Bejarano Referrals: Antoinette Peralta FNP [Primary Care Provider, Family Practice] - 4-7 days Patient Instructions: Abscess (ED), Opioid Safety, Pain Management, Patient Portal & Connie Instructions Activity Restrictions/Additional Instructions: Antibiotics as directed. You may use a topical drawing salve on it as well [id number]. Heat may help to draw out fluid. Follow-up with your doctor next week for wound check. Call Wednesday or Wednesday for an appointment. Print Language: Kyrgyz Coding Level of Care Code ED Interior Systems Carpenter for Kacy Ambrosio
[2025-01-13] MEDS: sulfamethoxazole-trimeth DS 160-800 mg Tablet 2 TAB PO (05:18)
--- NOTE | 2025-01-13 05:18 | PC.NURSE ---
When answering patients call light , patient very rude and irritated because she states that she is waiting on discharge and some antibiotics and she has been waiting for a while. The boyfriend of the patient interupts the conversation to say it has actually been 47 minutes. I explained that it takes a little while to get the order and get it through pharmacy and patient and boyfriend sarcastically laugh and state OK
== END 2025-01-13 05:15 | disposition home or self-care (01) ==
PROVIDERS: Emergency Provider Emergency Medicine; PCP Registered Nurse
DX: L73.2 Hidradenitis suppurativa (principal); N61.1 Abscess of the breast and nipple
CPT/HCPCS: 99283; J9999

== ENCOUNTER 2025-01-13 12:23 | Emergency (ER) | payer SELFPAY ==
--- OUTSIDE RECORDS SUMMARY | 2022-10-27 03:00 | XMS_ITS | Continuity of Care Document ---
Author Organization [facility] Address [address] [id number][place] [address] Phone Care Team Providers Care Platen Press Feeder Name Role Phone Yovanny De La Rosa [...] Diagnoses Date Provider Providers Copied on Encounter [facility], [id number]- [place], [place], [address], [place] tel:[phone] [facility] Encounter for dental exam and cleaning w/o abnormal findings 3 Estrella Hairston. [address] [place], [place], [address], [place]. tel:[phone] Referring Provider: Yovanny Harvey, [address] [place], [address]. tel:[phone] [facility], [id number]- [place], [place], [address], [place] tel:[phone] [facility] Encounter for dental exam and cleaning w/o abnormal findings 1 Estrella Hairston. [address] [place], [place], [address], [place]. tel:[phone] Referring Provider: Yovanny Harvey, [address] [place], [address]. tel:[phone] 7425 [facility], [id number]- [place], [address], [place] tel:[phone] [facility] Care Encounter for dental exam and cleaning w/o abnormal findings 1 Rupal Lee. [address] [place], [place], [address], [place]. tel:[phone] Referring Provider: Jesus Goldsmith, [address] [place], [address]. tel:[phone] 3254 [facility], [id number]- [place], [place], [address], [place] tel:[phone] [facility] Encounter for dental exam and cleaning w/o abnormal findings Aug- 0 No Information [facility], [id number]- [place], [place], [address], [place] tel:[phone] [facility] Encounter for dental exam and cleaning w/o abnormal findings Aug- 0 Ailyn Boothe. [address] [place], [address], [place]. tel:[phone] Referring Provider: Tl Robertson, [address] [place], [address]. tel:[phone] 6589 [facility], [id number]- [place], [place], [address], [place] tel:[phone] [facility] No Information Aug- 0 Vinita Bush. [address] [place], [address], [place]. tel:[phone] Referring Provider: Eleazar Rodriguez, [address] [place], [address]. tel:[phone] Family History Family Member Type Diagnosis Age At Onset No Information Payers Payer name Insurance type Covered libertarian ID Juju parisi(benita) Candice [facility] CI [id number] Social History Type Description Quantity Date Captured [...]
[2025-01-13 12:33] VITALS: BP 118/85; PULSE 67; RESP 17; TEMP 36.9; O2SAT 96; BMI 32.8
[2025-01-13 13:37] LABS: Hematocrit 44.0 % (36-47); Hemoglobin 15.10 g/dL (11.27-16.99); Mean Corpuscular HGB Conc 34.3 g/dL (30-55); Mean Corpuscular Hemoglobin 33.5 pg (27-33); Mean Corpuscular Volume 97.6 fl (85-98); Nucleated Red Blood Cells % 0 %; Platelet Count 318 10^3/cmm (157-399); Red Blood Count 4.51 10^6/uL (3.85-5.65); White Blood Count 10.45 10^3/uL (3.29-11.43)
[2025-01-13 13:46] LABS: HCG, Serum Qual Negative (Negative)
[2025-01-13 13:50] LABS: Glucose Urine UA Negative (Normal); Nitrate Urine Negative (Negative); Specific Gravity, Urine 1.009 (1.005-1.030)
[2025-01-13 13:55] LABS: Add Urine Microscopic? YES; Universal Test for UA Present (0)
[2025-01-13 13:56] LABS: Alanine Aminotransferase 24 U/L (0-33); Albumin Level 4.6 g/dL (3.5-5.2); Alkaline Phosphatase 99 U/L (35-105); Anion Gap 16.5 (5-19); Aspartate Amino Transferase 22 U/L (0-32); Blood Urea Nitrogen 5 mg/dL (6-20); Calcium 9.5 mg/dL (8.5-10.5); Carbon Dioxide 23 mmol/L (22-29); Chloride 101 mmol/L (98-107); Creatinine Clr Calc Pharmacy 111.0920; Globulin 3.8 g/dL (1.3-4.6); Glucose 93 mg/dL (65-115); Lipase 11 U/L (13-60); Osmolality Calculated 281 mOsm/kg (285-295); Potassium 3.5 mmol/L (3.5-5.1); Sodium 137 mmol/L (136-145); Total Protein 8.4 g/dL (6.6-8.7)
[2025-01-13 14:04] LABS: UA Manual Slide Review YES
--- NOTE | 2025-01-13 14:07 | ED_ITS ---
HPI - Skin/Abscess/Foreign Bdy 2 General: Chief complaint: Skin/Abscess/Foreign Body Stated complaint: hot flashes n/v panic attacks Time Seen by Provider: 01/13/25 12:56 Source: patient Mode of arrival: ambulatory Limitations: no limitations History of Present Illness: This patient is a 24-year-old female who was seen here earlier this morning, presenting with nausea and vomiting after starting Bactrim for diagnosed hidradenitis boil. At that time had normal workup and deemed incision and drainage was not necessary, no systemic symptoms. She was started on Bactrim told to return with any new or worsening. States that she went home and has been having chills, nausea and vomiting. She states that there is purple appearance around the lesion that she thinks might be from pressing on it. Overall this lesion has been giving her problems for 5 to 6 months, is nontoxic at this time. States that the drainage material will alternate different colors and consistency, but there is no active drainage at this time. She denies fever or other systemic symptoms. Vitals are within normal limits at this time. MD complaint: lesion Onset (ago): month(s) Location: chest (left breast) Severity: similar to previous episodes Associated symptoms: Reports chills, nausea and vomiting; Deny fever(s) Treatments prior to arrival: antibiotic Related Data Previous Rx's ?Medication ?Instructions ?Recorded tamsulosin 0.4 mg capsule 0.4 mg PO DAILY #14 caps 07/11 naproxen 500 mg tablet (Naprosyn) 500 mg PO BID PRN pa in #20 tabs 10/16/24 diclofenac sodium 50 mg 50 mg PO TID PRN pain #14 ta bs 01/13/25 tablet,delayed release doxycycline hyclate 100 mg tablet 100 mg PO BID 10 day s #20 tabs 01/13/25 ondansetron 4 mg disintegrating 4 mg PO TID PRN nausea and 01/13/25 tablet vomiting #30 tabs Allergies Allergy/AdvReac Type Severity Reaction Status Date / Time fluoxetine (From Prozac) Allergy Severe ADR-Halluci Verified 12/08/24 00:54 nating grass pollen Allergy Intermediate ALGY-Nasal Verified 12/08/24 00:54 Discharge ketchup Allergy Intermediate ADR-Gastrointestinal Verified 12/08/24 00:54 Upset gluten Allergy Unknown ADR-Abdominal Verified 12/08/24 00:54 Pain antipsychotics Allergy Unknown ADR-Halluci Uncoded 12/08/24 00:54 nating Review of Systems 2 General: Reports: 10 or more systems reviewed and unremarkable except in HPI and below Const: Reports: chills; Denies: fever(s) Card: Denies: chest pain Resp: Denies: dyspnea GI: Reports: nausea and vomiting; Denies: abdominal pain or diarrhea Musc: Denies: extremity pain or joint pain Skin/Breast: Reports: skin pain, skin tenderness, changing lesions and lesions; Denies: rash Neuro: Denies: headache(s) PFSH ED 2 PFSH: Medical History Positive Jeannine test of left knee Recurrent left knee instability History of methamphetamine use Psychiatric care Mid back pain Depression History of herpes genitalis Posttraumatic stress disorder History of kidney stones Had stone in 08/2015. Seen by Edilma Pena, at that time Degenerative disc disease Diverticulitis Surgical History Status post colonoscopy H/O esophagogastroduodenoscopy History of laparoscopic cholecystectomy (09/02/16) Performed by Dr. Perea at [facility] [place], [place] History of breast biopsy (~05/2019) Left H/O dilation and curettage (~02/2018) Dr. Tong @ [facility] Family History Father CAD (coronary artery disease) Hyperlipidemia Grandfather CAD (coronary artery disease) Mother Hypertension Lung disease Psychiatric illness PTSD, anxiety, depression, and anger problems. Brother Psychiatric illness Sister Psychiatric illness Family/Other Suicide Uncle Hyperlipidemia paternal side Grandmother Colon cancer, Onset Age: 80 paternal Other Cancer Diabetes Denies family history of Ovarian cancer Clotting disorder Breast cancer Anesthesia complication Bleeding disorder Uterine cancer Thyroid disease Stroke Social History Smoking and tobacco/nicotine status: never used tobacco/nicotine Substance/Drug Use: former Date of last use: Marijuana Do you think of yourself as: Straight/Heterosexual Physical Exam 2 Const: COMMON NORMALS: no acute distress, average body habitus, patient oriented x3, no limitations, healthy appearing, alert and well nourished HENMT: COMMON NORMALS: normocephalic and atraumatic HEAD & SCALP: n ormocephalic and atraumatic Neck/C-Spine: COMMON NORMALS: full ROM, no lymphadenopathy, supple and no meningeal signs Resp: COMMON NORMALS: normal respiratory effort, No use of accessory muscles and clear to auscultation bilaterally AUSCULTATION: clear to auscultation bilaterally Cardio: COMMON NORMALS: regular rate and regular rhythm RATE: regular rate RHYTHM: regular rhythm Extremity: COMMON NORMALS: full ROM and capillary refill normal Neuro: COMMON NORMALS: patient oriented x3 SENSORIUM/ORIENTATION: Yes alert MENINGEAL SIGNS: Yes no meningeal signs Skin: COMMON NORMALS: no wounds and turgor normal NARRATIVE SKIN EXAM: Small superficial lesion to inferior left breast, appearance of possible folliculitis or hidradenitis lesion. No palpable fluctuance active drainage or significant induration. Mild surrounding ecchymosis likely trauma induced. GENERAL SKIN EXAM: turgor normal Course 2 Vital Signs: Vital signs: Vital Signs Temperature 98.5 F 01/13/25 12:33 Pulse Rate 67 01/13/25 12:33 Respiratory Rate 17 01/13/25 12:33 Blood Pressure 118/85 01/13/25 12:33 Pulse Oximetry 96 01/13/25 12:33 Oxygen Delivery Me thod Room Air 01/13/25 12:33 MDM - Skin/Abscess/Foreign Bdy Medicial Decision Making Patient is a 24-year-old female, initially seen yesterday for chronic breast boil and started on Bactrim. Now reporting nausea vomiting hot flashes and worsening pain at the site. Vitals normal, and lab studies including CBC, CMP, lipase, urinalysis are all within normal limits. Nontoxic-appearing on exam. Wound culture will be obtained with results pending. Given absence of systemic infection and temporal association with Bactrim initiation, her symptoms are most consistent with antibiotic intolerance. The abscess appears localized and does not require incision and drainage at this time. Plan to discontinue Bactrim and initiate doxycycline 100 mg p.o. twice daily for management of the lesion, provide symptomatic treatment with antiemetics and analgesics as needed, continue local wound care, and ensure dermatology follow-up for ongoing hidradenitis management if this issue continues to bother her. She is counseled on return precautions. Lab Data 01/13/25 13:28 01/13/25 13:28 Laboratory Results WBC 10.45 10^3/uL (3.29-11.43) 01/13/25 13:28 RBC 4.51 10^6/uL (3.85-5.65) 01/13/25 13:28 Hgb 15.10 g/dL (11.27-16.99) 01/13/25 13:28 Hct 44.0 % (36-47) 01/13/25 13:28 MCV 97.6 fl (85-98) 01/13/25 13:28 MCH 33.5 pg (27-33) H 01/13/25 13:28 MCHC 34.3 g/dL (30-55) 01/13/25 13:28 RDW 14.0 % (12.1-15.1) 01/13/25 13:28 Plt Count 318 10^3/cmm (157-399) 01/13/25 13:28 MPV 9.0 fL (7.4-10.4) 01/13/25 13:28 Neut % (Auto) 75.5 % 01/13/25 13:28 Lymph % (Auto) 16.2 % 01/13/25 13:28 [place] % (Auto) 6.4 % 01/13/25 13:28 Eos % (Auto) 1.1 % 01/13/25 13:28 Baso % (Auto) 0.5 % 01/13/25 13:28 Neut # (Auto) 7.89 10^3/uL (1.8-7.7) H 01/13/25 13:28 Lymph # (Auto) 1.7 10^3/uL (0.8-4.8) 01/13/25 13:28 [place] # (Auto) 0.7 10^3/uL (0.2-0.9) 01/13/25 13:28 Eos # (Auto) 0.1 10^3/uL (0.0-0.8) 01/13/25 13:28 Baso # (Auto) 0.1 10^3/uL (0.0-0.1) 01/13/25 13:28 Nucleated RBC % (auto) 0 % 01/13/25 13:28 Nucleated RBCs # 0.0 /100WBC 01/13/25 13:28 Sodium 137 mmol/L (136-145) 01/13/25 13:28 Potassium 3.5 mmol/L (3.5-5.1) 01/13/25 13:28 Chloride 101 mmol/L (98-107) 01/13/25 13:28 Carbon Dioxide 23 mmol/L (22-29) 01/13/25 13:28 Anion Gap 16.5 (5-19) 01/13/25 13:28 BUN 5 mg/dL (6-20) L 01/13/25 13:28 Creatinine 0.7 mg/dL (0.5-0.9) 01/13/25 13:28 GFR Calculation 101.1 mL/min (90-130) 01/13/25 13:28 Glucose 93 mg/dL (65-115) 01/13/25 13:28 Calculated Osmolality 281 mOsm/kg (285-295) L 01/13/25 13:28 Calcium 9.5 mg/dL (8.5-10.5) 01/13/25 13:28 Total Bilirubin 0.5 mg/dL (0.15-1.2) 01/13/25 13:28 AST 22 U/L (0-32) 01/13/25 13:28 ALT 24 U/L (0-33) 01/13/25 13:28 Alkaline Phosphatase 99 U/L (35-105) 01/13/25 13:28 Total Protein 8.4 g/dL (6.6-8.7) 01/13/25 13:28 Albumin 4.6 g/dL (3.5-5.2) 01/13/25 13:28 Globulin 3.8 g/dL (1.3-4.6) 01/13/25 13:28 Lipase 11 U/L (13-60) L 01/13/25 13:28 HCG, Qual Negative (Negative) 01/13/25 13:28 Urine Color Yellow (Yellow) 01/13/25 13:30 Urine Appearance Clear (CLEAR) 01/13/25 13:30 Urine pH 7.0 (5-7) 01/13/25 13:30 Ur Specific [place] 1.009 (1.005-1.030) 01/13/25 13:30 Urine Protein Negative (Negative) 01/13/25 13:30 Urine Glucose (UA) Negative (Normal) 01/13/25 13:30 Urine Ketones Negative (Negative) 01/13/25 13:30 Urine Blood Negative (Negative) 01/13/25 13:30 Urine Nitrate Negative (Negative) 01/13/25 13:30 Urine Bilirubin Negative (Negative) 01/13/25 13:30 Urine Urobilinogen 1.0 mg/dL (Negative) 01/13/25 13:30 Ur Leukocyte Esterase 1+ (Negative) A 01/13/25 13:30 Urine RBC Rare /hpf (0-2) 01/13/25 13:30 Urine WBC 5-10 /hpf (0-5) H 01/13/25 13:30 Ur Squamous Epith Cells 10-15 /hpf (0-5) H 01/13/25 13:30 Amorphous Sediment Not Reportable 01/13/25 13:30 Urine Bacteria Few /hpf (NONE) 01/13/25 13:30 No radiology studies performed this visit Discharge Plan Discharge Patient Disposition: Home Clinical Impression: Abscess of breast, Hidradenitis Condition: Stable Prescriptions: New ondansetron 4 mg tablet,disintegrating 4 mg PO TID PRN (Reason: nausea and vomiting) Qty: 30 0RF doxycycline hyclate 100 mg tablet 100 mg PO BID 10 Days Qty: 20 0RF Discontinued sulfamethoxazole-trimethoprim [Bactrim DS] 800-160 mg tablet 1 tab PO BID Qty: 20 0RF No Action naproxen [Naprosyn] 500 mg tablet 500 mg PO BID PRN (Reason: pain) Qty: 20 0RF diclofenac sodium 50 mg tablet,delayed release (DR/EC) 50 mg PO TID PRN (Reason: pain) Qty: 14 0RF tamsulosin 0.4 mg capsule 0.4 mg PO DAILY Qty: 14 0RF Discharge Orders: Discharge ED (Routine); Ordered 01/13/25 Ordered By: Jeovanny Olivares Referrals: Antoinette Peralta, [facility] [Primary Care Provider, Family Practice] Patient Instructions: Patient Portal & Connie Instructions Activity Restrictions/Additional Instructions: HS and Abscess Discharge Diagnosis and Hospital Course: - 24-year-old female presented with hidradenitis suppurativa and a breast abscess. - Initial antibiotic therapy with trimethoprim-sulfamethoxazole (Bactrim) was discontinued due to nausea and vomiting, likely attributable to the medication. - Transitioned to doxycycline for ongoing management. Discharge Instructions: 1. Medication Management - Begin doxycycline 100 mg orally twice daily. This regimen is supported as first-line therapy for pefr-ax-jajchujf HS by the [place] Hidradenitis Suppurativa [employer]. - Take doxycycline with a full glass of water and remain upright for at least 30 minutes to reduce risk of esophageal irritation. - Avoid taking doxycycline with dairy products, antacids, or iron supplements, as these may decrease absorption. - Complete the full course as prescribed, typically 12 weeks for HS, unless otherwise directed. - Monitor for common side effects: photosensitivity (advise sun protection), gastrointestinal upset, and, rarely, esophagitis. 2. Management of Nausea and Vomiting - Symptoms likely related to trimethoprim-sulfamethoxazole should resolve after discontinuation. - If nausea persists with doxycycline, consider taking with food (but not dairy) to minimize GI upset. 3. Wound and Skin Care - Continue local wound care for the breast abscess: gentle cleansing with mild soap and water, keep area dry, and apply sterile dressings as needed. - Monitor for signs of infection: increased redness, swelling, warmth, purulent drainage, or fever. - For HS lesions, recommend wearing loose-fitting clothing, avoiding friction, and maintaining good hygiene. 4. Follow-Up and Referral - If there is any worsening of the lesion (increased pain, size, drainage, or new lesions), or lack of improvement after 2-4 weeks of doxycycline, refer to dermatology for further evaluation and consideration of advanced therapies (e.g., combination antibiotics, biologics). - Schedule outpatient follow-up within 1-2 weeks to reassess clinical response. 5. Additional Considerations - Screen for comorbidities associated with HS (obesity, diabetes, metabolic syndrome) as part of ongoing management. - Blueberry Grower on smoking cessation and weight management if applicable, as these may improve disease control. - Advise on mental health support if quality of life is affected. 6. When to Seek Immediate Care - Return to the emergency department for signs of systemic infection: high fever, chills, rapid heart rate, confusion, or inability to tolerate oral intake. - Seek urgent care for rapidly expanding redness, severe pain, or new abscess formation. 7. Patient Education - HS is a chronic inflammatory skin condition; flares and recurrences are common. - Early intervention and adherence to therapy are griffiths to preventing progression and scarring. Summary of Evidence: - Doxycycline is recommended as first-line systemic therapy for onxv-ko-vyzdhror HS. - Management of skin abscesses includes appropriate antibiotic therapy and wound care, with follow-up for recurrence or worsening. - Dermatology referral is indicated for refractory or progressive disease. Print Language: Azeri Coding Level of Care Code ED Sheet Sewer for Kacy Ambrosio
[2025-01-13] MEDS: metoclopramide 5 mg/mL SDV 2 mL 10 MG IVP (14:12)
[2025-01-13 14:21] VITALS: BP 110/71; PULSE 61; O2SAT 97
--- NOTE | 2025-01-15 08:17 | DCPLANNER ---
messaged derm for er f/u
== END 2025-01-13 14:21 | disposition home or self-care (01) ==
PROVIDERS: Emergency Medicine; Emergency Provider Physician Assistant; PCP Registered Nurse
DX: N61.1 Abscess of the breast and nipple (principal); L73.2 Hidradenitis suppurativa
CPT/HCPCS: 36415; 80053; 81001; 83690; 84703; 85025; 96374; 99284; J2765

== ENCOUNTER → 2025-01-29 16:15 | Outpatient (BNVA) | payer SELFPAY | PROVIDERS: PCP Registered Nurse; Visit Provider Family Medicine | DX: J02.9 Acute pharyngitis, unspecified (principal) | CPT/HCPCS: 87071; 87880 ==

== ENCOUNTER 2025-02-06 00:18 | Emergency (ER) | payer SELFPAY ==
[2025-02-06 00:26] VITALS: BP 109/79; PULSE 62; RESP 17; TEMP 36.7; O2SAT 97; BMI 30.2
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
--- NOTE | 2025-02-06 00:35 | W.ED.SKABFB ---
HPI - Skin/Abscess/Foreign Bdy General: Chief complaint: Skin/Abscess/Foreign Body Stated complaint: Painful Lump in LT armpit Time Seen by Provider: 02/06/25 00:19 Source: patient Mode of arrival: ambulatory Limitations: no limitations History of Present Illness: 24-year-old female states she has a painful lump in her left armpit. States she did have a recent URI denies any current illness or fever. States it is a painful small pea-sized lump denies any redness denies any drainage. Related Data Home Medications ?Medication ?Instructions ?Recorded ?Confirmed albuterol sulfate 90 mcg/actuation 1 inh inhalation QID 01/29/25 01/29/25 breath activated powder inhaler Previous Rx's ?Medication ?Instructions ?Recorded fluticasone propionate 50 2 spray intranasal DAILY #16 grams 01/29/25 mcg/actuation nasal spray,suspension (Flonase Allergy Relief) naproxen 500 mg tablet (Naprosyn) 500 mg PO BID PRN pain #20 tabs 02/06/25 Allergies Allergy/AdvReac Type Severity Reaction Status Date / Time fluoxetine (From Prozac) Allergy Severe ADR-Halluci Verified 01/29/25 16:08 nating grass pollen Allergy Intermediate ALGY-Nasal Verified 01/29/25 16:08 Discharge ketchup Allergy Intermediate ADR-Gastrointestinal Verified 01/29/25 16:08 Upset gluten Allergy Unknown ADR-Abdominal Verified 01/29/25 16:08 Pain antipsychotics Allergy Unknown ADR-Halluci Uncoded 01/29/25 16:08 nating [facility] ED PFSH: Medical History Positive Jeannine test of left knee Recurrent left knee instability History of methamphetamine use Psychiatric care Mid back pain Depression History of herpes genitalis Posttraumatic stress disorder History of kidney stones Had stone in 08/2015. Seen by Dr. Castro Uro, at that time Degenerative disc disease Diverticulitis Surgical History Status post colonoscopy H/O esophagogastroduodenoscopy History of laparoscopic cholecystectomy (09/02/16) [place] Pe[place] [facility] [place], [place] History of breast biopsy (~05/2019) Left H/O dilation and curettage (~02/2018) Dr. Tong @ [facility] Family History Father CAD (coronary artery disease) Hyperlipidemia Grandfather CAD (coronary artery disease) Mother Hypertension Lung disease Psychiatric illness PTSD, anxiety, depression, and anger problems. Brother Psychiatric illness Sister Psychiatric illness Family/Other Suicide Uncle Hyperlipidemia paternal side Grandmother Colon cancer, Onset Age: 80 paternal Other Cancer Diabetes Denies family history of Ovarian cancer Clotting disorder Breast cancer Anesthesia complication Bleeding disorder Uterine cancer Thyroid disease Stroke Social History Smoking and tobacco/nicotine status: current every day tobacco/nicotine user Substance/Drug Use: former Date of last use: Marijuana Do you think of yourself as: Straight/Heterosexual Physical Exam Const: COMMON NORMALS: no acute distress, patient oriented x3 and healthy appearing HENMT: COMMON NORMALS: normocephalic and atraumatic HEAD & SCALP: normocephalic and atraumatic Eye: COMMON NORMALS: conjunctivae normal CONJUNCTIVA: Yes conjunctivae normal Neck/C-Spine: COMMON NORMALS: full ROM and supple Chest: COMMONS NORMALS: normal inspection of the chest Resp: COMMON NORMALS: normal respiratory effort Cardio: COMMON NORMALS: regular rate RATE: regular rate Extremity: COMMON NORMALS: normal to inspection and full ROM Neuro: COMMON NORMALS: patient oriented x3, moves all extremities and no focal motor deficits Psych: COMMON NORMALS: mental status grossly normal, Normal thought process present and cooperative THOUGHT PROCESS: Normal thought process present Skin: COMMON NORMALS: no rashes or lesions noted and no wounds NARRATIVE SKIN EXAM: Palpable pea-sized lymph node in left armpit that is painful to touch no redness no swelling no abscess GENERAL SKIN EXAM: no rashes or lesions noted Course Vital Signs: Vital signs: Vital Signs Temperature 98.0 F 02/06/25 00:26 Pulse Rate 62 02/06/25 00:26 Respiratory Rate 17 02/06/25 00:26 Blood Pressure 109/79 02/06/25 00:26 Pulse Oximetry 97 02/06/25 00:26 Oxygen Delivery Me thod Room Air 02/06/25 00:26 MDM - Skin/Abscess/Foreign Bdy Medicial Decision Making Patient presents here with a large lymph node she has no signs of abscess no cellulitis she is stable for discharge follow-up with PCP return if worsening she understands agrees to plan Differential Diagnosis Likely abscess of skin or subcutaneous tissue and cellulitis No radiology studies performed this visit Discharge Plan Discharge Patient Disposition: Home Clinical Impression: Enlarged lymph nodes in armpit Condition: Stable Prescriptions: New naproxen [Naprosyn] 500 mg tablet 500 mg PO BID PRN (Reason: pain) Qty: 20 0RF No Action albuterol sulfate 90 mcg/actuation aerosol powdr breath activated 1 inh inhalation QID fluticasone propionate [Flonase Allergy Relief] 50 mcg/actuation spray,suspension 2 spray intranasal DAILY Qty: 16 0RF Rx Instructions: administer into each nostril Discharge Orders: Discharge ED (Routine); Ordered 02/06/25 Ordered By: Awilda Montes Referrals: Antoinette Peralta FNP [Primary Care Provider, Family Practice] - 4-7 days Discharge Diet: Advance as tolerated Discharge Activity: Resume usual activity Patient Instructions: Lymphadenopathy (ED) Print Language: Tajik Coding Level of Care Code ED Tactical Air Control Party Manager for Kacy Ambrosio
[2025-02-06 00:44] VITALS: BP 109/79; PULSE 52; O2SAT 96
[2025-02-06 00:51] VITALS: BP 114/58; PULSE 57; O2SAT 97
[2025-02-06] MEDS: HYDROcodone-acetaminophen 5-325 mg Tablet 1 TAB PO (00:51)
== END 2025-02-06 00:56 | disposition home or self-care (01) ==
PROVIDERS: Emergency Provider Emergency Medicine; PCP Registered Nurse
DX: R59.0 Localized enlarged lymph nodes (principal); Z72.0 Tobacco use
CPT/HCPCS: 99283; J9999

== ENCOUNTER 2025-03-04 10:41 | Emergency (ER) | payer SELFPAY ==
--- NOTE | 2025-03-04 10:45 | XRR_ITS ---
PROCEDURE INFORMATION: Exam: XR Left Elbow Exam date and time: 03/04/2025 10:52 AM Age: 25 years old Clinical indication: Pain; Elbow; Left TECHNIQUE: Imaging protocol: Radiologic exam of the left elbow. Views: 3 or more views. COMPARISON: No relevant prior studies available. FINDINGS: Bones/joints: Normal. Soft tissues: Normal. XR/XR elbow LT min 3V* [id number] IMPRESSION: No acute findings.
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
[2025-03-04 10:47] VITALS: BP 129/81; PULSE 52; RESP 16; TEMP 36.9; O2SAT 100; BMI 32.2
--- NOTE | 2025-03-04 10:55 | ED_ITS ---
HPI - Extremity Problem General: Chief complaint: Extremity Injury, Upper Stated complaint: L elbow pain Time Seen by Provider: 03/04/25 10:45 History of Present Illness: 25-year-old female patient [facility] today for complaints of left elbow pain that started 3 days prior to arrival. Patient reported that she was performing range of motion when she noted a popping/crunching sound both medial and lateral to the elbow. Patient reported since then she has had sharp shooting pain that she associates with the tendon of her elbow. Patient reported that decreased movement has helped the pain however it reoccurs with movement. Related Data Home Medications ?Medication ?Instructions ?Recorded ?Confirmed albuterol sulfate 90 mcg/actuation 1 inh inhalation QI D 01/29/25 01/29/25 breath activated powder inhaler Previous Rx's ?Medication ?Instructions ?Recorded fluticasone propionate 50 2 spray intranasal DAILY #16 grams 01/29/25 mcg/actuation nasal spray,suspension (Flonase Allergy Relief) naproxen 500 mg tablet (Naprosyn) 500 mg PO BID PRN pa in #20 tabs 02/06/25 cyclobenzaprine 10 mg tablet 10 mg PO Q12H PRN muscle spasm #14 03/04/25 tabs naproxen 500 mg tablet (Naprosyn) 500 mg PO BID Anti-i nflammatory 03/04/25 #14 tabs Allergies Allergy/AdvReac Type Severity Reaction Status Date / Time fluoxetine (From Prozac) Allergy Severe ADR-Halluci Verified 01/29/25 16:08 nating grass pollen Allergy Intermediate ALGY-Nasal Verified 01/29/25 16:08 Discharge ketchup Allergy Intermediate ADR-Gastrointestinal Verified 01/29/25 16:08 Upset gluten Allergy Unknown ADR-Abdominal Verified 01/29/25 16:08 Pain antipsychotics Allergy Unknown ADR-Halluci Uncoded 01/29/25 16:08 nating Review of Systems General: Reports: 10 or more systems reviewed and unremarkable except in HPI and below Musc: Reports: joint pain (Left elbow) and limited range of motion (Left elbow) [facility] ED PFSH: Medical History (Updated 03/04/25 @ 11:02 by Princess Ann NP) Positive Jeannine test of left knee Recurrent left knee instability History of methamphetamine use Psychiatric care Mid back pain Depression History of herpes genitalis Posttraumatic stress disorder History of kidney stones Had stone in 08/2015. Seen by Dr. Castro Uro, at that time Degenerative disc disease Diverticulitis Surgical History Status post colonoscopy H/O esophagogastroduodenoscopy History of laparoscopic cholecystectomy (09/02/16) Performed by Dr. Perea at [facility] in [place], [place] History of breast biopsy (~05/2019) Left H/O dilation and curettage (~02/2018) Dr. Tong @ [facility] Family History Father CAD (coronary artery disease) Hyperlipidemia Grandfather CAD (coronary artery disease) Mother Hypertension Lung disease Psychiatric illness PTSD, anxiety, depression, and anger problems. Brother Psychiatric illness Sister Psychiatric illness Family/Other Suicide Uncle Hyperlipidemia paternal side Grandmother Colon cancer, Onset Age: 80 paternal Other Cancer Diabetes Denies family history of Ovarian cancer Clotting disorder Breast cancer Anesthesia complication Bleeding disorder Uterine cancer Thyroid disease Stroke Social History Smoking and tobacco/nicotine status: current every day tobacco/nicotine user Substance/Drug Use: former Date of last use: Marijuana Do you think of yourself as: Straight/Heterosexual Physical Exam Const: COMMON NORMALS: no acute distress, average body habitus, patient oriented x3, no limitations, healthy appearing, alert and well nourished Resp: COMMON NORMALS: normal respiratory effort, No retractions, No use of accessory muscles, clear to auscultation bilaterally and percussion normal AUSCULTATION: clear to auscultation bilaterally PERCUSSION: percussion normal Extremity: LEFT UPPER EXTREMITY: Yes elbow joint Left elbow: Yes inspection (Within normal limit), Yes ROM (Pain with range of motion), Yes neurovascular exam (Neurovascular intact) and Yes special tests Left elbow special tests: Passive tennis elbow test: Positive and Elbow Tinel's sign: Positive Neuro: COMMON NORMALS: patient oriented x3 SENSORIUM/ORIENTATION: Yes alert Course Vital Signs: Vital signs: Vital Signs Temperature 98.4 F 03/04/25 10:47 Pulse Rate 52 L 03/04/25 10:47 Respiratory Rate 16 03/04/25 10:47 Blood Pressure 129/81 03/04/25 10:47 Pulse Oximetry 100 03/04/25 10:47 Oxygen Delivery Me thod Room Air 03/04/25 10:47 MDM - Extremity (Nontraumatic) Medical Decision Making 21-year-old female patient presents to emergency department today with complaints of left elbow pain. Patient reported that suddenly with range of motion a popping/crunching sound about 3 days prior to arrival. She reported that the pain has been persistent and increased with range of motion. I suspect left elbow tendinitis patient is able to perform formal range of motion however golfers elbow test is positive. Patient's left hand and arm are neurovascularly intact. X-ray imaging is ordered and is pending. Differential Diagnosis Likely lower extremity edema (Elbow strain, elbow sprain, elbow tendinitis) XR interpretation done by ED provider, pending radiology final review Discharge Plan Discharge Patient Disposition: Home Clinical Impression: Left elbow tendinitis, Arm pain, left Condition: Stable Prescriptions: New cyclobenzaprine 10 mg tablet 10 mg PO Q12H PRN (Reason: muscle spasm) Qty: 14 0RF naproxen [Naprosyn] 500 mg tablet 500 mg PO BID Qty: 14 0RF No Action albuterol sulfate 90 mcg/actuation aerosol powdr breath activated 1 inh inhalation QID fluticasone propionate [Flonase Allergy Relief] 50 mcg/actuation spray,suspension 2 spray intranasal DAILY Qty: 16 0RF Rx Instructions: administer into each nostril naproxen [Naprosyn] 500 mg tablet 500 mg PO BID PRN (Reason: pain) Qty: 20 0RF Discharge Orders: Discharge ED (Routine); Ordered 03/04/25 Ordered By: Princess Ann Referrals: Antoinette Peralta FNP [Primary Care Provider, Family Practice] Discharge Activity: Limit activity as instructed Patient Instructions: Pain Management, Patient Portal & Connie Instructions Activity Restrictions/Additional Instructions: Please advance your activity as tolerated. Please rest, ice, and elevate your arm on a pillow. If your pain is persistent past 10 days please follow-up with orthopedic surgery and given you a referral for them they will be contacting you. Please take the naproxen twice daily for the next 7 days. You may use the muscle relaxer as needed please not drive or operate heavy machinery with taking this medication. Stand Alone Forms: Work/School Release Print Language: Divehi Coding Level of Care Code ED Lift Operator for Kacy Ambrosio
[2025-03-04 11:29] VITALS: BP 111/84; PULSE 52; O2SAT 100
--- NOTE | 2025-03-05 08:06 | DCPLANNER ---
messaged ortho for er f/u
== END 2025-03-04 11:33 | disposition home or self-care (01) ==
PROVIDERS: Emergency Provider Nurse Practitioner; PCP Registered Nurse
DX: M77.8 Other enthesopathies, not elsewhere classified (principal); M79.602 Pain in left arm; Z72.0 Tobacco use
CPT/HCPCS: 73080; 99283

== ENCOUNTER 2025-03-05 15:38 | Emergency (ER) | payer SELFPAY ==
[2025-03-05 15:41] VITALS: BP 115/74; PULSE 73; RESP 17; TEMP 36.7; O2SAT 100; BMI 32.2
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
[2025-03-05 16:20] VITALS: BP 117/70; PULSE 62; O2SAT 99
== END 2025-03-05 16:22 | disposition home or self-care (01) ==
PROVIDERS: Emergency Provider Physician Assistant; PCP Registered Nurse
DX: S60.221A Contusion of right hand, initial encounter (principal); Z72.0 Tobacco use; W22.09XA Striking against other stationary object, initial encounter
CPT/HCPCS: 73130; 99283

== ENCOUNTER 2025-03-22 13:23 | Emergency (ER) | payer SELFPAY ==
[2025-03-22 13:27] VITALS: BP 123/76; PULSE 88; RESP 17; TEMP 36.8; O2SAT 97; BMI 30.2
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
--- NOTE | 2025-03-22 14:08 | W.ED.GIBLEED ---
HPI - GI Bleed General: Chief complaint: GI Bleed Stated complaint: rectal bleeding Time Seen by Provider: 03/22/25 13:32 History of Present Illness: 25-year-old female extensive history of IBS and GI related issues, presenting with possible rectal bleeding, patient reportedly started her period today but believes that she had passage of some small blood clots from her rectum when wiping at the toilet earlier today, she endorses chronic fatigue and intermittent blood loss and is concerned that she may be anemic, she also reports that she does not have a GI doctor and would like a referral to 1. No fevers, no severe abdominal pain Related Data Home Medications ?Medication ?Instructions ?Recorded ?Confirmed No Known Home Medications 03/22/25 03/22/25 Allergies Allergy/AdvReac Type Severity Reaction Status Date / Time fluoxetine (From Prozac) Allergy Severe ADR-Halluci Verified 01/29/25 16:08 nating grass pollen Allergy Intermediate ALGY-Nasal Verified 01/29/25 16:08 Discharge ketchup Allergy Intermediate ADR-Gastrointestinal Verified 01/29/25 16:08 Upset gluten Allergy Unknown ADR-Abdominal Verified 01/29/25 16:08 Pain antipsychotics Allergy Unknown ADR-Halluci Uncoded 01/29/25 16:08 nating [facility] ED PFSH: Medical History Positive Jeannine test of left knee Recurrent left knee instability History of methamphetamine use Mid back pain Depression History of herpes genitalis Posttraumatic stress disorder History of kidney stones Had stone in 08/2015. Seen by Edilma Pena, at that time Degenerative disc disease Diverticulitis Surgical History Status post colonoscopy H/O esophagogastroduodenoscopy History of laparoscopic cholecystectomy (09/02/16) Performed by Dr. Perea at [facility] in [place], [place] History of breast biopsy (~05/2019) Left H/O dilation and curettage (~02/2018) Dr. Tong @ [facility] Family History Father CAD (coronary artery disease) Hyperlipidemia Grandfather CAD (coronary artery disease) Mother Hypertension Lung disease Psychiatric illness PTSD, anxiety, depression, and anger problems. Brother Psychiatric illness Sister Psychiatric illness Family/Other Suicide Uncle Hyperlipidemia paternal side Grandmother Colon cancer, Onset Age: 80 paternal Other Cancer Diabetes Denies family history of Ovarian cancer Clotting disorder Breast cancer Anesthesia complication Bleeding disorder Uterine cancer Thyroid disease Stroke Social History Smoking and tobacco/nicotine status: current every day tobacco/nicotine user Substance/Drug Use: former Date of last use: Marijuana Do you think of yourself as: Straight/Heterosexual Physical Exam Narrative: EXAM NARRATIVE: Gen: A&Ox4, no acute distress, nontoxic appearing HEENT: Normocephalic, atraumatic, no scleral icterus, external ears normal, moist mucous membranes Neck: Supple, full range of motion, no observable masses Lungs: No Respiratory distress, Lungs clear to auscultation bilaterally no rales, rhonchi, wheezing CV: Regular rate and rhythm, no murmur, no pitting edema to lower extremities bilaterally Abdomen: Soft, nondistended, nontender to palpation MSK: No joint swelling, FROM all 4 extremities Skin: No rashes, petechiae, lesions. Normal color per patient. Neuro: Alert and oriented, no slurred speech, sensation and strength grossly intact all 4 extremities Psych: Appropriate for situation. Course Reevaluation(s): Reevaluation #1: Digital rectal exam performed with Kimberly as RN grape picker, no active hemorrhage from the rectum, minimal external hemorrhoid nonbleeding, BARBARA with empty rectal vault no bleeding or significant stool Time: 14:37 Vital Signs: Vital signs: Vital Signs Temperature 98.3 F 03/22/25 13:27 Pulse Rate 88 03/22/25 13:27 Respiratory Rate 17 03/22/25 13:27 Blood Pressure 123/76 03/22/25 13:27 Pulse Oximetry 97 03/22/25 13:27 Oxygen Delivery Me thod Room Air 03/22/25 13:27 MDM - GI Bleed Medical Decision Making 25-year-old female presenting with possible rectal bleeding versus menstrual bleeding, plan for pelvic exam for rectal when grape picker available, labs to rule out acute blood loss anemia, discharged with outpatient referral to GI for workup of her chronic abdominal related issues. Physical exam benign, reassuring vitals in the ED, no indication of the presence of an emergency medical condition at this time. No radiology studies performed this visit Discharge Plan Discharge Patient Disposition: Home Clinical Impression: Painless rectal bleeding Condition: Stable Prescriptions: No Action No Known Home Medications Discharge Orders: Discharge ED (Routine); Ordered 03/22/25 Ordered By: Robin Ramesh Referrals: Antoinette Peralta FNP [Primary Care Provider, Family Practice] Patient Instructions: Rectal Bleeding (ED), Patient Portal & Connie Instructions Activity Restrictions/Additional Instructions: You were seen for possible rectal bleeding, your blood work is reassuring that there is nothing immediately dangerous occurring, I do recommend given your history and symptoms that you follow-up with a payroll administrator and I am having my case investigator work on getting you an appointment they should call you within the coming days to establish this appointment. Return to the ER if you experience worsening bleeding leading to lightheaded dizziness or passing out, severe pain, fevers, or any other concerns Print Language: Mongolian Coding Level of Care Code ED Workday Consultant for Kacy Ambrosio
--- NOTE | 2025-03-22 15:26 | DCPLANNER ---
messaged general surgery for er f/u
[2025-03-22 16:07] LABS: Hematocrit 43.6 % (36-47); Hemoglobin 14.30 g/dL (11.27-16.99); Mean Corpuscular HGB Conc 32.8 g/dL (30-55); Mean Corpuscular Hemoglobin 32.8 pg (27-33); Mean Corpuscular Volume 100.0 fl (85-98); Nucleated Red Blood Cells % 0 %; Platelet Count 342 10^3/cmm (157-399); Red Blood Count 4.36 10^6/uL (3.85-5.65); White Blood Count 12.93 10^3/uL (3.29-11.43)
[2025-03-22 16:29] LABS: Anion Gap 17.3 (5-19); Blood Urea Nitrogen 6 mg/dL (6-20); Calcium 9.3 mg/dL (8.5-10.5); Carbon Dioxide 23 mmol/L (22-29); Chloride 100 mmol/L (98-107); Creatinine Clr Calc Pharmacy 105.6222; Glucose 88 mg/dL (65-115); Osmolality Calculated 281 mOsm/kg (285-295); Potassium 3.3 mmol/L (3.5-5.1); Sodium 137 mmol/L (136-145)
[2025-03-22 16:56] VITALS: BP 123/96; PULSE 88; O2SAT 97
== END 2025-03-22 16:57 | disposition home or self-care (01) ==
PROVIDERS: Emergency Provider Student in an Organized Health Care Education/Training Program; PCP Registered Nurse
DX: K92.2 Gastrointestinal hemorrhage, unspecified (principal); Z72.0 Tobacco use
CPT/HCPCS: 36415; 80048; 85025; 99283

== ENCOUNTER 2025-04-06 20:09 | Emergency (ER) | payer SELFPAY ==
[2025-04-06 20:13] VITALS: BP 122/84; PULSE 71; RESP 16; TEMP 36.9; O2SAT 97; BMI 32.8
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
--- NOTE | 2025-04-06 20:40 | ED_ITS ---
HPI - Skin/Abscess/Foreign Bdy 2 General: Chief complaint: Skin/Abscess/Foreign Body Stated complaint: absess spot on breast hard and hot now Time Seen by Provider: 04/06/25 20:21 History of Present Illness: Patient is a 25-year-old female without medical issues that presented to the emergency room due to breast mass. She has felt a area of induration for the last several months, as much is a year, and was diagnosed with benign breast mass previously. In the last 2 weeks, worsening in the last 1 week, she had an indurated area that felt like it would drain, and therefore she squeezed it approximately 3-5 days ago. She only got a clear production of fluid out of this area. She has not had any fevers. There is pain in this area locally. It is located on the inner quadrant of her left lower breast. Associated symptoms: Deny chills, fever(s) or nausea Related Data Previous Rx's ?Medication ?Instructions ?Recorded doxycycline hyclate 100 mg capsule 100 mg PO BID 10 da ys #20 caps 04/06/25 Allergies Allergy/AdvReac Type Severity Reaction Status Date / Time fluoxetine (From Prozac) Allergy Severe ADR-Halluci Verified 01/29/25 16:08 nating grass pollen Allergy Intermediate ALGY-Nasal Verified 01/29/25 16:08 Discharge ketchup Allergy Intermediate ADR-Gastrointestinal Verified 01/29/25 16:08 Upset gluten Allergy Unknown ADR-Abdominal Verified 01/29/25 16:08 Pain antipsychotics Allergy Unknown ADR-Halluci Uncoded 01/29/25 16:08 nating Review of Systems 2 General: Reports: 10 or more systems reviewed and unremarkable except in HPI and below Const: Denies: fever(s) or chills Card: Denies: chest pain or palpitations Resp: Denies: dyspnea GI: Denies: abdominal pain, nausea or diarrhea Musc: Denies: back pain, extremity pain or joint pain Skin/Breast: Reports: skin pain, skin tenderness, changing lesions, lesions, breast pain, breast swelling, breast mass and breast skin changes; Denies: rash, nipple discharge or change in breast shape Neuro: Denies: headache(s) or numbness in extremities Psych: Denies: anxiety or depression PFS ED 2 PFSH: Medical History (Updated 04/06/25 @ 20:41 by DENG Olsen) Positive Jeannine test of left knee Recurrent left knee instability History of methamphetamine use Mid back pain Depression History of herpes genitalis Posttraumatic stress disorder History of kidney stones Had stone in 08/2015. Seen by Dr. Castro Uro, at that time Degenerative disc disease Diverticulitis Surgical History Status post colonoscopy H/O esophagogastroduodenoscopy History of laparoscopic cholecystectomy (09/02/16) Performed by Dr. Perea at [facility] in [place], [place] History of breast biopsy (~05/2019) Left H/O dilation and curettage (~02/2018) Dr. Tong @ [facility] Family History Father CAD (coronary artery disease) Hyperlipidemia Grandfather CAD (coronary artery disease) Mother Hypertension Lung disease Psychiatric illness PTSD, anxiety, depression, and anger problems. Brother Psychiatric illness Sister Psychiatric illness Family/Other Suicide Uncle Hyperlipidemia paternal side Grandmother Colon cancer, Onset Age: 80 paternal Other Cancer Diabetes Denies family history of Ovarian cancer Clotting disorder Breast cancer Anesthesia complication Bleeding disorder Uterine cancer Thyroid disease Stroke Social History Smoking and tobacco/nicotine status: current every day tobacco/nicotine user Substance/Drug Use: former Date of last use: Marijuana Do you think of yourself as: Straight/Heterosexual Physical Exam 2 Const: COMMON NORMALS: no acute distress, average body habitus, patient oriented x3, no limitations, healthy appearing, alert and well nourished HENMT: COMMON NORMALS: normocephalic and atraumatic HEAD & SCALP: n ormocephalic and atraumatic Neck/C-Spine: COMMON NORMALS: full ROM, no lymphadenopathy and supple Chest: Breast/axilla inspection: Yes skin changes (Yellow ecchymosis around left inner lower quadrant (bruising from previous ) BREAST/AXILLA PALPATION: Yes breast lump location: Left inner lower quadrant size and shape: Indurated, round, 2.5 cm consistency: Indurated overlying skin changes: Yellowing ecchymosis from previous manipulation mobility: Mobile with in its area fluctuance: No fluctuance and Yes axillary lymphadenopathy (No lymphadenopathy) NIPPLE/AREOLA: Yes nipples/areola normal Chest images (female): 1. 2.5 cm indurated, mobile breast mass Resp: COMMON NORMALS: normal respiratory effort, No retractions and No use of accessory muscles Cardio: COMMON NORMALS: regular rate and regular rhythm RATE: regular rate RHYTHM: regular rhythm GI: COMMON NORMALS: Normal to inspection, nondistended, normoactive bowel sounds present, Soft to palpation, non-tender, No hepatosplenomegaly present and no bruits PALPATION: Yes Soft to palpation and Yes No hepatosplenomegaly present : COMMON NORMALS: Yes no CVA tenderness BLADDER/KIDNEY EXAM: Yes no CVA tenderness Back/Pelvis: COMMON NORMALS: no CVA tenderness and thoracic and lumbar spine normal to inspection Extremity: COMMON NORMALS: normal to inspection, full ROM and capillary refill normal Neuro: COMMON NORMALS: patient oriented x3, CN's II-XII intact bilaterally and moves all extremities SENSORIUM/ORIENTATION: Yes alert Psych: COMMON NORMALS: mental status grossly normal, Normal thought process present and cooperative THOUGHT PROCESS: Normal thought process present Course 2 Vital Signs: Vital signs: Vital Signs Temperature 98.4 F 04/06/25 20:13 Pulse Rate 71 04/06/25 20:13 Respiratory Rate 16 04/06/25 20:13 Blood Pressure 122/84 04/06/25 20:13 Pulse Oximetry 97 04/06/25 20:13 Oxygen Delivery Me thod Room Air 04/06/25 20:13 MDM - Skin/Abscess/Foreign Bdy Medicial Decision Making Patient is a 25-year-old female with history of benign breast mass, with a mobile indurated area, non draining. Given the location, differential including inflammatory breast cancer, I have advised mammogram, run of doxycycline for coverage of MRSA, and follow-up primary care physician. Patient now lives here, her primary care was previously at [place], and she would like to establish care here. Case management referral has been made. Discussed with patient to also work on resources, apply for Medicaid, so she is able to get all these concerns addressed. Patient agrees, and will apply online immediately. Medical Records I reviewed the patient's medical records. Lab Data I reviewed the patient's lab results. NO labs No radiology studies performed this visit Discharge Plan Discharge Patient Disposition: Home Clinical Impression: Left breast mass Qualifiers: Breast mass location: lower inner quadrant Qualified Code(s): N63.24 - Unspecified lump in the left breast, lower inner quadrant Condition: Stable Prescriptions: New doxycycline hyclate 100 mg capsule 100 mg PO BID 10 Days Qty: 20 0RF Discharge Orders: Discharge ED (Routine); Ordered 04/06/25 Ordered By: Susana Almaguer Referrals: Antoinette Peralta, [employer] [Primary Care Provider, Family Practice] Discharge Diet: Usual diet Discharge Activity: Resume usual activity Patient Instructions: Breast Mass (ED), Patient Portal & Connie Instructions Activity Restrictions/Additional Instructions: - As we discussed: You need a mammogram, and follow-up with primary care. Antibiotics at the pharmacy: Doxycycline. Make sure you take with food. Eat daily active culture yogurt, or take probiotic to avoid infectious diarrhea. On the list of things it can be is inflammatory breast cancer. Make sure you follow-up with your mammogram, and arrange for outpatient resources such as Medicaid to make sure you are safe. This can be a garden-variety abscess, however you do not take chances with the breast. - Make sure you place some warm heat against this nodule which will help with pain, and can bring an abscess to the surface. It is not amendable to drainage at this time. -Tylenol and ibuprofen taken together to help with pain. Follow bottle instructions. - Feel free to come back to the emergency room for temperature greater than 100.4, increasing redness, increasing drainage for reevaluation in the interim. - It was nice to meet you, take good care of yourself Thank you for choosing [facility] for your healthcare needs today. You have been screened and evaluated and felt safe for discharge. Health conditions do change or evolve sometimes and as such it is important that you follow up with your Primary Doctor to be re checked, 3-5 days is a general good time frame for follow up. You are always welcome to return to the ED for re assessment if your symptoms are worsening or you have new concerns Stand Alone Forms: Work/School Release Print Language: Stateless Coding Level of Care Code ED Guide Delegate for Kacy Ambrosio
[2025-04-06 20:48] VITALS: BP 116/74; PULSE 88; O2SAT 96
[2025-04-06] MEDS: orphenadrine 30 mg/mL Inj 2 mL 60 MG IM (21:11)
[2025-04-06 21:22] VITALS: BP 111/79; PULSE 57; O2SAT 96
--- NOTE | 2025-04-09 07:40 | DCPLANNER ---
messaged [facility] to establish pcp
== END 2025-04-06 21:23 | disposition home or self-care (01) ==
PROVIDERS: Emergency Provider Physician Assistant; PCP Registered Nurse
DX: N63.24 Unspecified lump in the left breast, lower inner quadrant (principal); Z72.0 Tobacco use
CPT/HCPCS: 96372; 99284; J1885; J2360; J9999

== ENCOUNTER 2025-04-27 11:00 | Emergency (ER) | payer BC, MEDICAID, SELFPAY ==
--- NOTE | 2025-04-27 11:02 | XR_ITS ---
WS: [id number] XR foot RT min 3V* [id number] REASON FOR EXAM: right great toe pain FINDINGS: No fracture or focal bone lesion. No periosteal reaction or bone erosion. The joint spaces of the right foot are intact and well preserved. XR/XR foot RT min 3V* [id number] IMPRESSION: No significant bone or joint abnormality.
[2025-04-27 11:18] VITALS: BP 125/68; PULSE 90; RESP 16; TEMP 36.9; O2SAT 98; BMI 29.2
--- NOTE | 2025-04-27 11:41 | W.ED.EXTPRO ---
HPI - Extremity Problem General: Chief complaint: Extremity Injury, Lower Stated complaint: Rt big toe Time Seen by Provider: 04/27/25 11:31 History of Present Illness: 25-year-old female who presents to the emergency room with right great toe pain. She says she was popping her toe and had made a pop in now 2 days later it is bruised. She said it is difficult to bear weight. No obvious deformities. Neurovascularly intact. Related Data Allergies Allergy/AdvReac Type Severity Reaction Status Date / Time fluoxetine (From Prozac) Allergy Severe ADR-Halluci Verified 04/27/25 11:25 nating grass pollen Allergy Intermediate ALGY-Nasal Verified 04/27/25 11:25 Discharge ketchup Allergy Intermediate ADR-Gastrointestinal Verified 04/27/25 11:25 Upset gluten Allergy Unknown ADR-Abdominal Verified 04/27/25 11:25 Pain antipsychotics Allergy Unknown ADR-Halluci Uncoded 04/27/25 11:25 nating Review of Systems Narrative: Constitutional symptoms: Negative except as documented in HPI. Skin symptoms: Negative except as documented in HPI. Eye symptoms: Negative except as documented in HPI. ENMT symptoms: Negative except as documented in HPI. Respiratory symptoms: Negative except as documented in HPI. Cardiovascular symptoms: Negative except as documented in HPI. Gastrointestinal symptoms: Negative except as documented in HPI. Genitourinary symptoms: Negative except as documented in HPI. Musculoskeletal symptoms: Negative except as documented in HPI. Neurologic symptoms: Negative except as documented in HPI. Psychiatric symptoms: Negative except as documented in HPI. Endocrine symptoms: Negative except as documented in HPI. [facility] ED PFSH: Medical History (Updated 04/27/25 @ 12:01 by Anai Goldsmith MD) Positive Jeannine test of left knee Recurrent left knee instability History of methamphetamine use Mid back pain Depression History of herpes genitalis Posttraumatic stress disorder History of kidney stones Had stone in 08/2015. Seen by Dr. Castro Uro, at that time Degenerative disc disease Diverticulitis Surgical History Status post colonoscopy H/O esophagogastroduodenoscopy History of laparoscopic cholecystectomy (09/02/16) Performed by Dr. Perea at [facility] in [place], [place] History of breast biopsy (~05/2019) Left H/O dilation and curettage (~02/2018) Dr. Tong @ [facility] Family History Father CAD (coronary artery disease) Hyperlipidemia Grandfather CAD (coronary artery disease) Mother Hypertension Lung disease Psychiatric illness PTSD, anxiety, depression, and anger problems. Brother Psychiatric illness Sister Psychiatric illness Family/Other Suicide Uncle Hyperlipidemia paternal side Grandmother Colon cancer, Onset Age: 80 paternal Other Cancer Diabetes Denies family history of Ovarian cancer Clotting disorder Breast cancer Anesthesia complication Bleeding disorder Uterine cancer Thyroid disease Stroke Social History Smoking and tobacco/nicotine status: current every day tobacco/nicotine user Substance/Drug Use: former Date of last use: Marijuana Do you think of yourself as: Straight/Heterosexual Physical Exam Narrative: EXAM NARRATIVE: General: Alert, no acute distress. Skin: warm and dry Head: Normocephalic Neck: Trachea midline Eye: Extraocular movements are intact. Ears, nose, mouth and throat: Oral mucosa moist Respiratory: Respirations are non-labored Musculoskeletal: Some bruising at the base of the great toe into the foot. Mild swelling. No obvious deformity. Gastrointestinal: Abdomen does not appear distended Neurological: Alert and oriented, No focal neurological deficit observed. Psychiatric: Cooperative, appropriate mood & affect. Course Vital Signs: Vital signs: Vital Signs Temperature 98.4 F 04/27/25 11:18 Pulse Rate 90 04/27/25 11:18 Respiratory Rate 16 04/27/25 11:18 Blood Pressure 125/68 04/27/25 11:18 Pulse Oximetry 98 04/27/25 11:18 Oxygen Delivery Me thod Room Air 04/27/25 11:18 MDM - Extremity (Nontraumatic) Medical Decision Making Medical decision making Patient's reason for coming to the emergency room: Toe pain Social determinants: Patient is employed I reviewed the patient's medical record. Was seen in the emergency room most recently on April 06 I reviewed the patient's current home meds Patient takes no chronic medications Alternate historians: None Differential diagnosis including but not limited to and based on the above HPI, review of systems and physical exam: In this patient with a musculoskeletal extremity traumatic injury and x-ray is being ordered to rule out fractures and dislocations. Orders placed to evaluate differential diagnosis based on the above differential, HPI and physical exam X-ray of the right foot: No fractures or dislocations. This was reviewed and interpreted by myself the emergency room physician. I also reviewed the radiology report. Reexamination: Patient remained stable. No increased work of breathing. No altered mental status. No focal motor deficits. Assessment and plan: Toe injury - Discharged home - Discussed plan with patient. Answered any questions. - Evaluation and treatment of this problem were appropriate in the emergency setting. Lab Data Radiology Impressions Foot X-Ray 04/27/25 11:02 IMPRESSION: No significant bone or joint abnormality. All radiology interpretation(s) finalized by discharge Discharge Plan Discharge Patient Disposition: Home Clinical Impression: Bruise of toe Condition: Stable Discharge Orders: Discharge ED (Routine); Ordered 04/27/25 Ordered By: Anai Goldsmith Referrals: Antoinette Peralta FNP [Primary Care Provider, Family Practice] Discharge Diet: Usual diet Discharge Activity: Increase activity as tolerated Patient Instructions: P.R.I.C.E. Treatment (ED), Opioid Safety, Pain Management, Patient Portal & Connie Instructions Activity Restrictions/Additional Instructions: Thank you for choosing [facility] for your healthcare needs today. You have been screened and evaluated and felt safe for discharge. Health conditions do change or evolve sometimes and as such it is important that you follow up with your Primary Doctor to be re checked, 3-5 days is a general good time frame for follow up. You are always welcome to return to the ED for re assessment if your symptoms are worsening or you have new concerns Stand Alone Forms: Work/School Release Print Language: Togolese Coding Level of Care Code ED Reinsurance Accountant for Kacy Ambrosio
== END 2025-04-27 12:09 | disposition home or self-care (01) ==
PROVIDERS: Emergency Provider Emergency Medicine; PCP Registered Nurse
DX: S90.111A Contusion of right great toe without damage to nail, initial encounter (principal); Z72.0 Tobacco use; X58.XXXA Exposure to other specified factors, initial encounter
CPT/HCPCS: 73630; 99283